=== PATIENT | female | born 1965 | race Hispanic/Latino ===

== ENCOUNTER 2018-01-30 17:40 | Inpatient (IN) | payer OTHER ==
[2018-01-30 17:55] VITALS: BMI 31.1
[2018-01-30] MEDS ORDERED: Sodium Chloride 0.9% 1,000 ML IV STA (19:06)
[2018-01-30 19:38] LABS: BASO # 0.04 K/mm3 (0.0-2.0); BASO % 0.7 % (0.0-3.0); EOS # 0.1 (0.0-0.7); EOS % 1.1 % (1.5-5.0); GRAN # 3.57 (1.4-6.5); HEMOGLOBIN 15.2 g/dL (12.0-16.0); LYMPH # 1.2 (1.2-3.4); LYMPH % 21.8 % (22.0-35.0); MEAN CELL VOLUME 91.9 fl (80.0-105.0); MEAN CORPUSCULAR HEMOGLOBIN 31.4 pg (25.0-35.0); MEAN CORPUSCULAR HGB CONC 34.2 g/dl (31.0-37.0); MEAN PLATELET VOLUME 11.4 fl (7.0-11.0); MONO # 0.6 (0.1-0.6); MONO % 10.4 % (1.0-6.0); RBC 4.84 10^6/uL (3.5-6.1); RED CELL DISTRIBUTION WIDTH 13.7 % (11.5-14.5); WHITE BLOOD COUNT 5.4 10^3/uL (4.5-11.0)
[2018-01-30 19:43] LABS: ALB/GLOB RATIO 1.2 (1.1-1.8); ALBUMIN 3.9 g/dL (3.0-4.8); ALT/SGPT 181 U/L (7-56); AST/SGOT 216 U/L (14-36); BLOOD UREA NITROGEN 5 mg/dL (7-21); GFR NON-AFRICAN AMERICAN > 60; INR 1.03; LIPASE 1822 U/L (23-300); PARTIAL THROMBOPLASTIN TIME 29.2 Seconds (25.1-36.5); PROTHROMBIN TIME 11.8 SECONDS (9.4-12.5)
--- NOTE | 2018-01-30 20:52 | ED PDOC ---
Arrival/HPI - General Chief Complaint: GI Problem Time Seen by Provider: 01/30/18 18:30 Historian: Patient - History of Present Illness Narrative History of Present Illness (Text): 01/30/18 21:37 52 year old female, whose past medical history includes gastric ulcers on omeprazole, presents to the emergency department for constant RUQ pain for 4 days. Patient states pain has been radiating to her back. Patient informs pain is atypical with her normal gastritis pain. Patient denies any recent travel or sick contact. Patient also denies any fever, chills, diarrhea, headache, dizziness, CP, shortness of breath, back pain or any any other complaint. Reports no prior abdominal surgery. PMD [facility] Time/Duration: < week (3-4 days) Activities at Onset: Light Past Medical History - Provider Review Nursing Documentation Reviewed: Yes - Infectious Disease Hx of Infectious Diseases: None - Tetanus Immunization Tetanus Immunization: Unknown - Past Medical History Past Medical History: No Previous - Pulmonary Hx Chronic Obstructive Pulmonary Disease (COPD): Yes - Musculoskeletal/Rheumatological Hx Falls: No - Gastrointestinal Hx Gastrointestinal Ulcer: Yes - Psychiatric Hx Depression: No Hx Emotional Abuse: No Hx Physical Abuse: No Hx Substance Use: No - Past Surgical History Past Surgical History: No Previous - Anesthesia Hx Anesthesia: No - Suicidal Assessment Feels Threatened In Home Enviroment: No Family/Social History - Physician Review Nursing Documentation Reviewed: Yes Family/Social History: No Known Family HX Smoking Status: Heavy Smoker > 10 Cigarettes Daily Hx Alcohol Use: No Hx Substance Use: No Hx Substance Use Treatment: No Allergies/Home Meds Allergies/Adverse Reactions: Allergies No Known Allergies Allergy (Verified 01/30/18 17:55) Review of Systems - Physician Review All systems were reviewed & negative as marked: Yes - Review of Systems Constitutional: absent: Fevers, Night Sweats Gastrointestinal: Abdominal Pain. absent: Diarrhea Neurological: absent: Headache, Dizziness Physical Exam Vital Signs Reviewed: Yes Vital Signs Temp Pulse Resp BP Pulse Ox 01/30/18 17:58 98.0 F 103 H 18 124/82 97 Temperature: Afebrile Blood Pressure: Normal Pulse: Tachycardic Respiratory Rate: Normal Appearance: Positive for: Well-Appearing, Non-Toxic, Comfortable Pain Distress: None Mental Status: Positive for: Alert and Oriented X 3 - Systems Exam Head: Present: Atraumatic, Normocephalic Pupils: Present: PERRL Extroacular Muscles: Present: EOMI Conjunctiva: Present: Normal Mouth: Present: Moist Mucous Membranes Neck: Present: Normal Range of Motion Respiratory/Chest: Present: Clear to Auscultation, Good Air Exchange. No: Respiratory Distress, Accessory Muscle Use Cardiovascular: Present: Regular Rate and Rhythm, Normal S1, S2. No: Murmurs Abdomen: Present: Tenderness (RUQ ). No: Distention, Peritoneal Signs, Other (No garcias's sign) Back: Present: Normal Inspection Upper Extremity: Present: Normal Inspection. No: Cyanosis, Edema Lower Extremity: Present: Normal Inspection. No: Edema Neurological: Present: GCS=15, CN II-XII Intact, Speech Normal Skin: Present: Warm, Dry, Normal Color. No: Rashes Psychiatric: Present: Alert, Oriented x 3, Normal Insight, Normal Concentration Medical Decision Making ED Course and Treatment: 01/30/18 20:30 Impression: 52 year old female presents with RUQ pain Plan: -- EKG -- Labs -- GI Consult -- Chest X-ray -- Dextrose 5%/ lactated ringer -- Morphine -- Zofran -- Protonix -- Blood and Urine cultures -- Urinalysis -- US Abdomen Complete -- Reassess and disposition Prior Visits: Notes and results from previous visits were reviewed. Progress Notes: Labs reviewed : wbc 5.4, t bili 4.1, ast 216, alt 181, alk phos 159, lipase 1822 01/30/18 20:50 US Abdomen Complete CLINICAL HISTORY: RUQ pain. TECHNIQUE: Realtime sonographic images were obtained in multiple projections. COMMENTS: The liver shows increased echogenicity without evidence of mass or defect measuring 13.57 cm. Intrahepatic biliary ductal dilation is seen. The common b ile duct is dilated measuring 11.37 mm. The gallbladder shows gallstone at the bladder neck with sludge. The gallbladder wall is not thickened measuring 1.5 mm and there is no pericholecystic fluid. There is no abdominal ascites. The visualized portions of abdominal aorta and inferior vena cava present no abnormalities. The visualized portions of the pancreas are unremarkable. The spleen is of uniform echo texture and does not appear enlarged measuring 10.02 x 5.12 x 9.37 cm. The right kidney measures 10.26 x 4.02 x 5.05 cm and the left kidney measures 10.37 x 4.51 x 4.16 cm. Both kidneys are free of hydronephrosis. IMPRESSION: 1. Gallstone at the bladder neck with sludge. 2. Fatty liver. 3. No hepatic cysts are identified. On reevaluation, patient remains awake alert and oriented 3 in no acute distress. She states that the pain is controlled at this time. Abdomen remains soft with mild epigastric and RUQ tenderness, no guarding. Diagnostic results discussed with the patient in great detail. Dx of gallstone pancreatitis d/w the patient. Notified of need for admission, rationale for admission was explained to the patient and she is in agreement with plan for further inpatient treatment. 01/30/18 20:55 Case d/w Dr Rosario who agrees with admission plan under the hospitalist and recommends only IVF. 01/30/18 20:55 Case discussed with nurses medical assistants phlebotomists and Dr Hardwick, who agree with plan for under hospitalist. - Lab Interpretations Lab Results: 01/30/18 19:28 01/30/18 19:28 Lab Results 01/30/18 19:28: Sodium 136, Potassium 3.7, Chloride 104, Carbon Dioxide 25, Anion Gap 11, BUN 5 L, Creatinine 0.5 L, Est GFR ( Amer) > 60, Est GFR (Non-Af Amer) > 60, Random Glucose 110, Calcium 9.0, Magnesium 1.9, Total Bilirubin 4.1 H, AST 216 H, ALT 181 H, Alkaline Phosphatase 159 H, Total Protein 7.2, Albumin 3.9, Globulin 3.2, Albumin/Globulin Ratio 1.2, Lipase 1822 H 01/30/18 19:28: PT 11.8, INR 1.03, APTT 29.2 01/30/18 19:28: WBC 5.4, RBC 4.84, Hgb 15.2, Hct 44.5, MCV 91.9, MCH 31.4, MCHC 34.2, RDW 13.7, Plt Count 184, MPV 11.4 H, Gran % 66.0, Lymph % (Auto) 21.8 L, [place] % (Auto) 10.4 H, Eos % (Auto) 1.1 L, Baso % (Auto) 0.7, Gran # 3.57, Lymph # (Auto) 1.2, [place] # (Auto) 0.6, Eos # (Auto) 0.1, Baso # (Auto) 0.04 - RAD Interpretation Radiology Orders: 01/30/18 19:06 CHEST PORTABLE [RAD] Stat ABDOMEN COMPLETE [US] Stat - Medication Orders Current Medication Orders: Discontinued Medications Sodium Chloride (Sodium Chloride 0.9%) 1,000 mls @ 1,000 mls/hr IV .Q1H STA Stop: 01/30/18 20:05 Last Admin: 01/30/18 19:59 Dose: 1,000 mls/hr eMAR Start Stop Document 01/30/18 19:59 SS (Rec: 01/30/18 19:59 SS [email or web address]) Intravenous Solution Start Date 01/30/18 Start Time 19:59 End Date 01/30/18 End time 20:59 Total Infusion Time 60 Ondansetron HCl (Zofran Inj) 4 mg IVP STAT STA Stop: 01/30/18 19:07 Last Admin: 01/30/18 19:59 Dose: 4 mg IVP Administration Document 01/30/18 19:59 SS (Rec: 01/30/18 19:59 SS [email or web address]) Charges for Administration # of IVP Administrations 1 Pantoprazole Sodium (Protonix Inj) 40 mg IVP STAT STA Stop: 01/30/18 19:07 Last Admin: 01/30/18 19:59 Dose: 40 mg IVP Administration Document 01/30/18 19:59 SS (Rec: 01/30/18 19:59 SS [email or web address]) Charges for Administration # of IVP Administrations 1 - PA / [employer] RESURFACER / Resident Statement MD/DO has reviewed & agrees with the documentation as recorded. - Scribe Statement The provider has reviewed the documentation as recorded by the Jordanibomaira Hamm Provider Scribe Attestation: All medical record entries made by the Melecio were at my direction and personally dictated by me. I have reviewed the chart and agree that the record accurately reflects my personal performance of the history, physical exam, medical decision making, and the department course for this patient. I have also personally directed, reviewed, and agree with the discharge instructions and disposition. Disposition/Present on Arrival - Present on Arrival Any Indicators Present on Arrival: No History of DVT/PE: No History of Uncontrolled Diabetes: No Urinary Catheter: No History of Decub. Ulcer: No History Surgical Site Infection Following: None - Disposition Have Diagnosis and Disposition been Completed?: Yes Diagnosis: Gallstone pancreatitis Disposition: HOSPITALIZED Disposition Time: 21:00 Patient Plan: Admission Condition: STABLE
[2018-01-30] MEDS: Morphine 2 mg/ml ISec IVP PRN (21:52)
[2018-01-30] MEDS: Dextrose 5%/Lactated Ringer's 1,000 ML IV SCH (21:53)
[2018-01-30] MEDS ORDERED: Iohexol 350 MG/100 ML VIAL ONE (22:11)
[2018-01-30 22:23] LABS: BARBITURATES, UR NEGATIVE (NEGATIVE); BENZODIAZEPINES, UR NEGATIVE (NEGATIVE); OPIATES, UR NEGATIVE (NEGATIVE); PHENCYCLIDINE, UR NEGATIVE (NEGATIVE); URINE BILIRUBIN SMALL (NEGATIVE); URINE BLOOD NEGATIVE (NEGATIVE); URINE GLUCOSE (UA) NEGATIVE (NEGATIVE); URINE LEUKOCYTE ESTERASE NEGATIVE Leu/uL (NEGATIVE); URINE PROTEIN NEGATIVE mg/dL (<30 mg/dL); URINE UROBILINOGEN 0.2 E.U./dL (<1 E.U./dL)
[2018-01-30 22:24] LABS: URINE APPEARANCE CLEAR (CLEAR); URINE COLOR YELLOW (YELLOW)
[2018-01-30] MEDS ORDERED: Piperacillin/Tazobact 3.375 gm 100 ML IVPB STA (22:34)
--- NOTE | 2018-01-30 22:45 | CP.PCM.CON ---
<Danny Kumari - Last Filed: 01/31/18 00:22> History of Present Illness - History of Present Illness History of Present Illness: 52F with PMHx of peptic ulcer disease and diverticulosis presented to [facility] with complaints of abdominal pain. Patient reports she first noted abdominal pain around Thanksgiving. However, patient reports the abdominal pain severity has worsened over the past couple of days. Initially she attributed the pain to her history of PUD and had increased the dosage of omeprazole after consulting her GI doctor but had no relief, at which point she decided to come to ED. At time of examination patient reported having epigastric pain with radiation towards right upper quadrant and back. Patient also states having multiple bouts of emesis. Denies hematemesis. She denies fever/chills, chest pain, SOB, cough, lightheadedness, constipation, diarrhea, dysuria. PMHx: as stated above PSurgHx: denies Allergies: NKDA Soc Hx: Reports 1ppd for past 37 years, Denies EtOH consumption, denies illicit drug use Review of Systems - Review of Systems Review of Systems: 10 pt ROS negative except as stated in HPI Past Patient History - Infectious Disease Hx of Infectious Diseases: None - Tetanus Immunizations Tetanus Immunization: Unknown - Past Social History Smoking Status: Heavy Smoker > 10 Cigarettes Daily - PULMONARY Hx Chronic Obstructive Pulmonary Disease (COPD): Yes - MUSCULOSKELETAL/RHEUMATOLOGICAL Hx Falls: No - PSYCHIATRIC Hx Depression: No Hx Emotional Abuse: No Hx Physical Abuse: No Hx Substance Use: No - SURGICAL HISTORY Hx Surgeries: No - ANESTHESIA Hx Anesthesia: No Meds Allergies/Adverse Reactions: Allergies Allergy/AdvReac Type Severity Reaction Status Date / Time No Known Allergies Allergy Verified 01/30/18 17:55 - Medications Medications: Current Medications Heparin Sodium (Porcine) (Heparin) 5,000 units SC Q8H [facility]; Protocol Dextrose/Lactated Ringer's (Dextrose 5%/Lactated Ringer's) 1,000 mls @ 150 mls/hr IV .Q6H40M [facility] Last Admin: 01/30/18 21:53 Dose: 150 mls/hr Piperacillin Sod/Tazobactam Sod (Zosyn 3.375 In Ns 100ml) 100 mls @ 200 mls/hr IVPB STAT STA; Protocol Stop: 01/30/18 23:03 Piperacillin Sod/Tazobactam Sod (Zosyn 3.375 In Ns 100ml) 100 mls @ 25 mls/hr IVPB Q12 [facility]; Protocol Stop: 02/02/18 01:59 Morphine Sulfate (Morphine) 2 mg IVP Q4H PRN PRN Reason: Pain, moderate (4-7) Last Admin: 01/30/18 21:52 Dose: 2 mg Ondansetron HCl (Zofran Inj) 4 mg IVP Q6H PRN PRN Reason: Nausea/Vomiting Pantoprazole Sodium (Protonix Inj) 40 mg IVP DAILY [facility] Physical Exam - Constitutional Appears: Non-toxic, No Acute Distress - Head Exam Head Exam: NORMAL INSPECTION, NORMOCEPHALIC - Eye Exam Eye Exam: Normal appearance - ENT Exam ENT Exam: Mucous Membranes Moist - Respiratory Exam Respiratory Exam: NORMAL BREATHING PATTERN - Cardiovascular Exam Cardiovascular Exam: +S1, +S2 - GI/Abdominal Exam GI & Abdominal Exam: Distended, Soft, Tenderness. absent: Firm, Guarding, Rebound, Rigid Additional comments: slight epigastric and RUQ tenderness mild distension - Neurological Exam Neurological exam: Alert, Oriented x3 - Psychiatric Exam Psychiatric exam: Normal Mood - Skin Skin Exam: Dry, Intact, Warm Results - Vital Signs Recent Vital Signs: Last Vital Signs Temp 98.0 F 01/30/18 17:58 Pulse 103 H 01/30/18 17:58 Resp 18 01/30/18 17:58 BP 124/82 01/30/18 17:58 Pulse Ox 97 01/30/18 17:58 - Labs Result Diagrams: 01/30/18 19:28 01/30/18 19:28 Labs: Laboratory Results - last 24 hr 01/30/18 01/30/18 01/30/18 19:28 19:28 19:28 WBC 5.4 RBC 4.84 Hgb 15.2 Hct 44.5 MCV 91.9 MCH 31.4 MCHC 34.2 RDW 13.7 Plt Count 184 MPV 11.4 H Gran % 66.0 Lymph % (Auto) 21.8 L [place] % (Auto) 10.4 H Eos % (Auto) 1.1 L Baso % (Auto) 0.7 Gran # 3.57 Lymph # (Auto) 1.2 [place] # (Auto) 0.6 Eos # (Auto) 0.1 Baso # (Auto) 0.04 PT 11.8 INR 1.03 APTT 29.2 Sodium 136 Potassium 3.7 Chloride 104 Carbon Dioxide 25 Anion Gap 11 BUN 5 L Creatinine 0.5 L Est GFR ( Amer) > 60 Est GFR (Non-Af Amer) > 60 Random Glucose 110 Calcium 9.0 Magnesium 1.9 Total Bilirubin 4.1 H AST 216 H ALT 181 H Alkaline Phosphatase 159 H Total Protein 7.2 Albumin 3.9 Globulin 3.2 Albumin/Globulin Ratio 1.2 Lipase 1822 H Urine Color Urine Appearance Urine pH Ur Specific [place] Urine Protein Urine Glucose (UA) Urine Ketones Urine Blood Urine Nitrate Urine Bilirubin Urine Urobilinogen Ur Leukocyte Esterase Urine Opiates Screen Urine Methadone Screen Ur Barbiturates Screen Ur Phencyclidine Scrn Ur Amphetamines Screen U Benzodiazepines Scrn U Oth Cocaine Metabols U Cannabinoids Screen 01/30/18 01/30/18 21:58 21:58 WBC RBC Hgb Hct MCV MCH MCHC RDW Plt Count MPV Gran % Lymph % (Auto) [place] % (Auto) Eos % (Auto) Baso % (Auto) Gran # Lymph # (Auto) [place] # (Auto) Eos # (Auto) Baso # (Auto) PT INR APTT Sodium Potassium Chloride Carbon Dioxide Anion Gap BUN Creatinine Est GFR ( Amer) Est GFR (Non-Af Amer) Random Glucose Calcium Magnesium Total Bilirubin AST ALT Alkaline Phosphatase Total Protein Albumin Globulin Albumin/Globulin Ratio Lipase Urine Color Yellow Urine Appearance Clear Urine pH 7.0 Ur Specific [place] <= 1.005 Urine Protein Negative Urine Glucose (UA) Negative Urine Ketones 15 H Urine Blood Negative Urine Nitrate Negative Urine Bilirubin Small H Urine Urobilinogen 0.2 Ur Leukocyte Esterase Negative Urine Opiates Screen Negative Urine Methadone Screen Negative Ur Barbiturates Screen Negative Ur Phencyclidine Scrn Negative Ur Amphetamines Screen Negative U Benzodiazepines Scrn Negative U Oth Cocaine Metabols Negative U Cannabinoids Screen Negative Assessment & Plan - Assessment and Plan (Free Text) Assessment: 52F with gallstone pancreatitis, possible choledocholithiasis Abd U/S measured CBD at ~11.37mm Plan: -NPO -IVF -ABx -Analgesics prn -Anti-emetic prn -GI ppx -F/u MRCP results -Recommend GI consult, ERCP, recs appreciated -Patient will need cholecystectomy D/w Dr. Esperanza Barr PGY3 <Kvng Mata - Last Filed: 02/05/18 22:56> Results - Vital Signs Recent Vital Signs: Last Vital Signs Temp 98.1 F 02/04/18 06:00 Pulse 84 02/04/18 06:00 Resp 18 02/04/18 06:00 BP 161/99 H 02/04/18 06:00 Pulse Ox 95 02/04/18 06:00 - Labs Result Diagrams: 02/04/18 06:00 02/04/18 06:00 Attending/Attestation - Attestation I have personally seen and examined this patient.: Yes I have fully participated in the care of the patient.: Yes I have reviewed all pertinent clinical information: Yes Notes (Text): Pt was seen and examined at bedside Agree with above note and assessment Pt with RUQ pain and nausea Abdomen : Soft, ND, Tender in RUQ Labs and Radiology reviewed Ass: Cholelithiasis with CBD stone and abnormal LFTs Plan : MRCP GI consult for ERCP IV antibiotics NPO, IVF Plan d.w pt in detail Risk and benefit explained in detail. .
--- NOTE | 2018-01-30 22:46 | CP.PCM.HP ---
<Elisabeth Ma - Last Filed: 01/31/18 05:23> History of Present Illness - History of Present Illness History of Present Illness: Elisabeth Ma, PGY-1 Medicine H&P Note for Dr. Hardwick: CC: Abd pain x 2 weeks Pt is a 52 yo F with pmhx of PUD, and diverticulosis who presents for RUQ abd pain which started a day before . She states that for the last couple of days the episodes have become continuous and the pain has become more intense. She states that the pain is worsened with food and that her last meal was on tuesday about 5 days ago, which she had vomited up. She states She describes the pain as RUQ pain with radiation to her back and to the epigastric region of her abdomen. She also reports that the pain is rated as a 7/10 in intensity and describes it as a cramping pain. She states that she had 3 episodes of vomiting which was non-bloody non-billious. She is currenly reporting continued abdominal pain, and nausea but is denying fevers, chills, SOB, cough, chest pain, palpitations, leg swelling, constipation, diarrhea, frequency or dysuria. Pmhx: PUD, Diverticulosis Pshx: Denies Meds: Omperazole 40 BID All: NKDA Social: 1 ppd x 37 years, denies etoh or illicit drug use Fam: Dad: DM, Mom: Lung ca, Brother: DM PMD: Dr. [facility] [place] Present on Admission - Present on Admission Any Indicators Present on Admission: No Review of Systems - Review of Systems Review of Systems: 12 point ROS reviewed and negative except noted in HPI above Past Patient History - Infectious Disease Hx of Infectious Diseases: None - Tetanus Immunizations Tetanus Immunization: Unknown - Past Social History Smoking Status: Heavy Smoker > 10 Cigarettes Daily - PULMONARY Hx Chronic Obstructive Pulmonary Disease (COPD): Yes - MUSCULOSKELETAL/RHEUMATOLOGICAL Hx Falls: No - PSYCHIATRIC Hx Depression: No Hx Emotional Abuse: No Hx Physical Abuse: No Hx Substance Use: No - SURGICAL HISTORY Hx Surgeries: No - ANESTHESIA Hx Anesthesia: No Meds Allergies/Adverse Reactions: Allergies Allergy/AdvReac Type Severity Reaction Status Date / Time No Known Allergies Allergy Verified 01/30/18 17:55 Physical Exam - Constitutional Appears: Non-toxic, No Acute Distress, Other (uncomfortable) - Head Exam Head Exam: ATRAUMATIC, NORMAL INSPECTION, NORMOCEPHALIC - Eye Exam Eye Exam: EOMI, Normal appearance, PERRL - Respiratory Exam Respiratory Exam: Clear to Auscultation Bilateral, NORMAL BREATHING PATTERN. absent: Accessory Muscle Use, Decreased Breath Sounds, Rales, Rhonchi, Wheezes, Respiratory Distress, Stridor - Cardiovascular Exam Cardiovascular Exam: RRR, +S1, +S2. absent: Gallop, Rubs - GI/Abdominal Exam GI & Abdominal Exam: Normal Bowel Sounds, Soft, Tenderness (present in the RUQ and epigastric regions upon palpation). absent: Distended, Firm, Guarding, Rebound - Extremities Exam Extremities exam: Positive for: normal capillary refill, normal inspection, pedal pulses present - Back Exam Back exam: NORMAL INSPECTION. absent: CVA tenderness (L), CVA tenderness (R) - Neurological Exam Neurological exam: Alert, Oriented x3 - Psychiatric Exam Psychiatric exam: Normal Affect, Normal Mood - Skin Skin Exam: Dry, Intact, Normal Color, Warm Results - Vital Signs Recent Vital Signs: Last Vital Signs Temp 98.0 F 01/30/18 17:58 Pulse 103 H 01/30/18 17:58 Resp 18 01/30/18 17:58 BP 124/82 01/30/18 17:58 Pulse Ox 97 01/30/18 17:58 - Labs Result Diagrams: 01/30/18 19:28 01/30/18 19:28 Labs: Laboratory Results - last 24 hr 01/30/18 01/30/18 01/30/18 19:28 19:28 19:28 WBC 5.4 RBC 4.84 Hgb 15.2 Hct 44.5 MCV 91.9 MCH 31.4 MCHC 34.2 RDW 13.7 Plt Count 184 MPV 11.4 H Gran % 66.0 Lymph % (Auto) 21.8 L [place] % (Auto) 10.4 H Eos % (Auto) 1.1 L Baso % (Auto) 0.7 Gran # 3.57 Lymph # (Auto) 1.2 [place] # (Auto) 0.6 Eos # (Auto) 0.1 Baso # (Auto) 0.04 PT 11.8 INR 1.03 APTT 29.2 Sodium 136 Potassium 3.7 Chloride 104 Carbon Dioxide 25 Anion Gap 11 BUN 5 L Creatinine 0.5 L Est GFR ( Amer) > 60 Est GFR (Non-Af Amer) > 60 Random Glucose 110 Calcium 9.0 Magnesium 1.9 Total Bilirubin 4.1 H AST 216 H ALT 181 H Alkaline Phosphatase 159 H Total Protein 7.2 Albumin 3.9 Globulin 3.2 Albumin/Globulin Ratio 1.2 Lipase 1822 H Urine Color Urine Appearance Urine pH Ur Specific [place] Urine Protein Urine Glucose (UA) Urine Ketones Urine Blood Urine Nitrate Urine Bilirubin Urine Urobilinogen Ur Leukocyte Esterase Urine Opiates Screen Urine Methadone Screen Ur Barbiturates Screen Ur Phencyclidine Scrn Ur Amphetamines Screen U Benzodiazepines Scrn U Oth Cocaine Metabols U Cannabinoids Screen 01/30/18 01/30/18 21:58 21:58 WBC RBC Hgb Hct MCV MCH MCHC RDW Plt Count MPV Gran % Lymph % (Auto) [place] % (Auto) Eos % (Auto) Baso % (Auto) Gran # Lymph # (Auto) [place] # (Auto) Eos # (Auto) Baso # (Auto) PT INR APTT Sodium Potassium Chloride Carbon Dioxide Anion Gap BUN Creatinine Est GFR ( Amer) Est GFR (Non-Af Amer) Random Glucose Calcium Magnesium Total Bilirubin AST ALT Alkaline Phosphatase Total Protein Albumin Globulin Albumin/Globulin Ratio Lipase Urine Color Yellow Urine Appearance Clear Urine pH 7.0 Ur Specific [place] <= 1.005 Urine Protein Negative Urine Glucose (UA) Negative Urine Ketones 15 H Urine Blood Negative Urine Nitrate Negative Urine Bilirubin Small H Urine Urobilinogen 0.2 Ur Leukocyte Esterase Negative Urine Opiates Screen Negative Urine Methadone Screen Negative Ur Barbiturates Screen Negative Ur Phencyclidine Scrn Negative Ur Amphetamines Screen Negative U Benzodiazepines Scrn Negative U Oth Cocaine Metabols Negative U Cannabinoids Screen Negative Assessment & Plan - Assessment and Plan (Free Text) Assessment: Pt is a 52 yo F with pmhx of PUD, and diverticulosis who presents for RUQ abd pain which started a day before . U/S abd done in ED showed gallstone at the neck of the gallbladder and labs showed increased lipase and increased LFTs. Plan: 1. Pancreatitis likely 2/2 gallstone: - Lipase elevated to be 1822 - NPO - IVF - LR @ 150/hr - Protonix - Zofran prn - amylase - morphine 2q6 - GI consulted - Abraham - Surgery - Esperanza - EtoH 2. Transaminitis likely 2/2 gallstone obstruction: - Direct randy - Acute hep panel - MRCP - GI and surgery are on board 3. Hx of PUD: - Protonix 40 IV 4. PPX: GI: Protonix DVT: SCDs Case seen and discussed with Dr. Ronen Ma, PGY-1 <Ray Hardwick - Last Filed: 02/03/18 02:05> Results - Vital Signs Recent Vital Signs: Last Vital Signs Temp 98.1 F 02/02/18 14:00 Pulse 62 02/02/18 14:00 Resp 18 02/02/18 14:00 BP 150/92 H 02/02/18 14:00 Pulse Ox 100 02/02/18 14:00 - Labs Result Diagrams: 02/02/18 06:30 02/02/18 06:30 Labs: Laboratory Results - last 24 hr 02/02/18 02/02/18 02/02/18 06:30 06:30 06:30 WBC 4.4 L D RBC 4.24 Hgb 12.9 Hct 39.8 MCV 93.9 MCH 30.4 MCHC 32.4 RDW 14.2 Plt Count 149 MPV 11.3 H Gran % 62.8 Lymph % (Auto) 27.5 [place] % (Auto) 7.7 H Eos % (Auto) 1.8 Baso % (Auto) 0.2 Gran # 2.76 Lymph # (Auto) 1.2 [place] # (Auto) 0.3 Eos # (Auto) 0.1 Baso # (Auto) 0.01 Sodium 136 Potassium 3.9 Chloride 108 H Carbon Dioxide 25 Anion Gap 7 L BUN 4 L Creatinine 0.6 L Est GFR ( Amer) > 60 Est GFR (Non-Af Amer) > 60 Random Glucose 78 Calcium 8.8 Total Bilirubin 1.9 H AST 128 H D ALT 136 H Alkaline Phosphatase 135 H Total Protein 6.2 Albumin 3.2 Globulin 3.0 Albumin/Globulin Ratio 1.1 Amylase 78 Lipase 179 Blood Type AB POSITIVE Blood Type Confirm Antibody Screen Negative BBK History Checked No verified bt 02/02/18 07:45 WBC RBC Hgb Hct MCV MCH MCHC RDW Plt Count MPV Gran % Lymph % (Auto) [place] % (Auto) Eos % (Auto) Baso % (Auto) Gran # Lymph # (Auto) [place] # (Auto) Eos # (Auto) Baso # (Auto) Sodium Potassium Chloride Carbon Dioxide Anion Gap BUN Creatinine Est GFR ( Amer) Est GFR (Non-Af Amer) Random Glucose Calcium Total Bilirubin AST ALT Alkaline Phosphatase Total Protein Albumin Globulin Albumin/Globulin Ratio Amylase Lipase Blood Type Blood Type Confirm AB POSITIVE Antibody Screen BBK History Checked Attending/Attestation - Attestation I have personally seen and examined this patient.: Yes I have fully participated in the care of the patient.: Yes I have reviewed all pertinent clinical information: Yes
[2018-01-30 23:27] LABS: BILIRUBIN,DIRECT 3.4 mg/dL (0.0-0.4)
[2018-01-31] MEDS ORDERED: Morphine 2 mg/ml ISec IVP STA (00:28)
[2018-01-31] MEDS ORDERED: Pneumococcal 23-Valent Vaccine IM ONE (01:11)
[2018-01-31] MEDS ORDERED: Influenza Vaccine 60 mcg/0.5 mL SYR (4YR UP) IM ONE (01:11)
[2018-01-31 06:50] LABS: BASO # 0.03 K/mm3 (0.0-2.0); BASO % 0.8 % (0.0-3.0); EOS # 0.1 (0.0-0.7); GRAN # 1.84 (1.4-6.5); GRAN % 50.3 % (50.0-68.0); HEMOGLOBIN 13.9 g/dL (12.0-16.0); LYMPH # 1.3 (1.2-3.4); LYMPH % 36.1 % (22.0-35.0); MEAN CELL VOLUME 93.3 fl (80.0-105.0); MEAN CORPUSCULAR HEMOGLOBIN 30.9 pg (25.0-35.0); MEAN CORPUSCULAR HGB CONC 33.1 g/dl (31.0-37.0); MEAN PLATELET VOLUME 11.1 fl (7.0-11.0); MONO # 0.4 (0.1-0.6); MONO % 9.8 % (1.0-6.0); RBC 4.5 10^6/uL (3.5-6.1); WHITE BLOOD COUNT 3.7 10^3/uL (4.5-11.0)
[2018-01-31 07:30] LABS: ALB/GLOB RATIO 1.1 (1.1-1.8); ALBUMIN 3.4 g/dL (3.0-4.8); ALT/SGPT 161 U/L (7-56); AST/SGOT 189 U/L (14-36); BLOOD UREA NITROGEN 3 mg/dL (7-21); GFR NON-AFRICAN AMERICAN > 60
--- NOTE | 2018-01-31 07:48 | CP.PCM.PN ---
<Alesia Ramon - Last Filed: 01/31/18 11:39> Subjective - Date & Time of Evaluation Date of Evaluation: 01/31/18 Time of Evaluation: 07:45 - Subjective Subjective: Surgery progress note for Dr. Mata's service: Patient was seen and examined this morning. She states that her abdominal pain has improved. She is just mildly tender in the epigastric region. Denies nausea/vomiting. Denies fevers/chills. Denies diarrhea, constipation, dysuria. Objective - Vital Signs/Intake and Output Vital Signs (last 24 hours): Temp Pulse Resp BP Pulse Ox 97.9 F 65 20 124/83 96 01/31/18 01:17 01/31/18 01:17 01/31/18 01:17 01/31/18 01:17 01/31/18 01:17 - Medications Medications: Current Medications Heparin Sodium (Porcine) (Heparin) 5,000 units SC Q8H LIBAN; Protocol Last Admin: 01/31/18 00:09 Dose: 5,000 units Dextrose/Lactated Ringer's (Dextrose 5%/Lactated Ringer's) 1,000 mls @ 150 mls/hr IV .Q6H40M LIBAN Last Admin: 01/30/18 21:53 Dose: 150 mls/hr Piperacillin Sod/Tazobactam Sod (Zosyn 3.375 In Ns 100ml) 100 mls @ 25 mls/hr IVPB Q12 LIBAN; Protocol Stop: 01/31/18 13:59 Morphine Sulfate (Morphine) 2 mg IVP Q4H PRN PRN Reason: Pain, moderate (4-7) Last Admin: 01/30/18 21:52 Dose: 2 mg Ondansetron HCl (Zofran Inj) 4 mg IVP Q6H PRN PRN Reason: Nausea/Vomiting Pantoprazole Sodium (Protonix Inj) 40 mg IVP DAILY LIBAN - Labs Labs: 01/31/18 06:20 01/31/18 06:20 PT 11.8 SECONDS (9.4-12.5) 01/30/18 19:28 INR 1.03 01/30/18 19:28 APTT 29.2 Seconds (25.1-36.5) 01/30/18 19:28 - Constitutional Appears: Non-toxic, No Acute Distress - Head Exam Head Exam: ATRAUMATIC, NORMAL INSPECTION, NORMOCEPHALIC - Eye Exam Eye Exam: EOMI, Normal appearance - ENT Exam ENT Exam: Mucous Membranes Moist - Neck Exam Neck Exam: Normal Inspection - Respiratory Exam Respiratory Exam: NORMAL BREATHING PATTERN. absent: Accessory Muscle Use, Chest Wall Tenderness, Respiratory Distress - Cardiovascular Exam Cardiovascular Exam: REGULAR RHYTHM. absent: Tachycardia - GI/Abdominal Exam GI & Abdominal Exam: Soft, Tenderness (mild- epigastric). absent: Distended, Firm, Guarding, Rebound Additional comments: negative Rose's sign - Extremities Exam Extremities Exam: Normal Inspection. absent: Pedal Edema - Neurological Exam Neurological Exam: Alert, Awake, CN II-XII Intact, Oriented x3 - Psychiatric Exam Psychiatric exam: Normal Affect, Normal Mood - Skin Skin Exam: Dry, Intact, Normal Color, Warm Assessment and Plan - Assessment and Plan (Free Text) Assessment: 52F with gallstone pancreatitis, possible choledocholithiasis Plan: - Afebrile, no leukocytosis - Elevated Tbili, direct bili, LFTs, lipase/amylase - NPO - IVF - Pain meds PRN - CT A/P: extensive biliary tree dilatation due to multiple choledocholithiasis obstructing mid-distal CBD, mod intra and extrahepatic biliary dilatation, cholelithiasis in GB lumen - MRCP pending - Possible ERCP pending MRCP results - F/u GI recs - Likely cholecystectomy Case was discussed with attending, Dr. Mata. PGY-1 Alesia Ramon D.O. <Kvng Mata B - Last Filed: 02/05/18 22:58> Objective - Vital Signs/Intake and Output Vital Signs (last 24 hours): Temp Pulse Resp BP Pulse Ox 98.1 F 84 18 161/99 H 95 02/04/18 06:00 02/04/18 06:00 02/04/18 06:00 02/04/18 06:00 02/04/18 06:00 - Labs Labs: 02/04/18 06:00 02/04/18 06:00 PT 11.9 SECONDS (9.4-12.5) 01/31/18 09:10 INR 1.03 01/31/18 09:10 APTT 29.2 Seconds (25.1-36.5) 01/30/18 19:28 Attending/Attestation - Attestation I have personally seen and examined this patient.: Yes I have fully participated in the care of the patient.: Yes I have reviewed all pertinent clinical information, including history, physical exam and plan: Yes Notes (Text): Pt was seen and examined at bedside Agree with above note and assessment Pt with CBD stone and cholelithiasis ERCP tomorrow as per GI IV antibiotics NPO, IVF Plan d.w pt in detail
[2018-01-31] MEDS ORDERED: Potassium Phosphate 15 MMOLE in Dextrose 5% In Water 250 ML IVPB ONE (08:17)
--- NOTE | 2018-01-31 08:33 | RAD ---
Date of service: 01/30/2018 HISTORY: RUQ pain COMPARISON: No prior. FINDINGS: LUNGS: No active pulmonary disease. PLEURA: No significant pleural effusion identified, no pneumothorax apparent. CARDIOVASCULAR: No aortic atherosclerotic calcification present. Normal cardiac size. No pulmonary vascular congestion. OSSEOUS STRUCTURES: No significant abnormalities. VISUALIZED UPPER ABDOMEN: Normal. OTHER FINDINGS: None. IMPRESSION: No acute cardiopulmonary disease appreciated.
[2018-01-31 08:39] LABS: HDL CHOLESTEROL 36 mg/dL (29-60); LIPASE 1121 U/L (23-300)
[2018-01-31 08:50] LABS: LDL CHOLESTEROL 92 mg/dL (0-129)
[2018-01-31 09:30] LABS: INR 1.03; PROTHROMBIN TIME 11.9 SECONDS (9.4-12.5)
[2018-01-31] MEDS ORDERED: Piperacillin/Tazobact 3.375 gm 100 ML IVPB SCH (10:00)
[2018-01-31] MEDS: Dextrose 5%/Lactated Ringer's 1,000 ML IV SCH (10:31)
--- NOTE | 2018-01-31 10:34 | US ---
Date of service: 01/30/2018 HISTORY: RUQ pain COMPARISON: Really TECHNIQUE: Sonographic evaluation of the abdomen. FINDINGS: LIVER: Measures 13.6 cm. Diffusely increased echogenicity of the liver parenchyma. Consistent with fatty infiltration. Smooth contour. No mass. There is intrahepatic biliary ductal dilatation. GALLBLADDER: Cholelithiasis. No mural thickening. No pericholecystic fluid. Positive sonographic Rose sign. Gallstones are identified in the gallbladder neck though it is not clear whether they are mobile from the examination performed. COMMON BILE DUCT: Measures 11 mm. No stones. No dilatation. PANCREAS: Unremarkable as visualized. No mass. No ductal dilatation. RIGHT KIDNEY: Measures 10.3cm. Normal echogenicity. No calculus, mass, or hydronephrosis. LEFT KIDNEY: Measures 10.4cm. Normal echogenicity. No calculus, mass, or hydronephrosis. SPLEEN: 10.0 AORTA: No aneurysmal dilatation. IVC: Unremarkable. OTHER FINDINGS: None. IMPRESSION: Cholelithiasis with positive sonographic Rose sign. No mural thickening or pericholecystic fluid. Findings are equivocal for cholecystitis. Consider further evaluation with radionuclide hepatobiliary scan. There is evidence of biliary obstruction with dilatation of the common bile duct and intrahepatic bile ducts. Consider further evaluation with MRCP in consideration of choledocholithiasis. The preliminary findings for this examination were reported by [facility] at 10:57 p.m. on 01/30/2018. There is concurrence of this report with the preliminary findings.
--- NOTE | 2018-01-31 11:06 | CT ---
Date of service: 01/30/2018 PROCEDURE: CT Abdomen and Pelvis with contrast HISTORY: pancreatitis COMPARISON: At ultrasound examination 01/30/[address] exam. TECHNIQUE: Following the intravenous administration of iodinated contrast material, a CT examination of the abdomen and pelvis performed from the domes of the diaphragms to the symphysis pubis with reformatted datasets provided in axial, sagittal and coronal planes. Oral contrast was not administered as per referring physician request. Coronal and sagittal reformats were generated. Contrast dose: Omnipaque 350, 98 cc Radiation dose: Total exam DLP = 825.99 mGy-cm. This CT exam was performed using one or more of the following dose reduction techniques: Automated exposure control, adjustment of the mA and/or kV according to patient size, and/or use of iterative reconstruction technique. FINDINGS: LOWER THORAX: Unremarkable. LIVER: Moderate intrahepatic biliary dilatation is identified including common hepatic duct measuring 1.2 cm. There is a simple cyst identified at the medial left lobe measuring 1.7 cm greatest dimension and 13 Hounsfield units though this could represent a small choledochocele. Right hepatic parenchyma is nonfocal. GALLBLADDER AND BILE DUCTS: Gallbladder is mildly distended with numerous calculi in the lumen. Extensive choledocholithiasis is seen in the distal common bile duct which extends backward to the mid CBD in a pattern that suggests multiple adjacent stones along 50 percent of the course of the CBD similar to steinstrasse seen in the ureters with multiple renal stones but not in this patient. This is the etiology of the patient's biliary obstruction. PANCREAS: Unremarkable. No gross lesion or significant ductal dilatation. SPLEEN: Unremarkable. ADRENALS: Unremarkable. No mass. KIDNEYS AND URETERS: Unremarkable. No hydronephrosis. No solid mass. VASCULATURE: Unremarkable. No aortic aneurysm. No aortic atherosclerotic calcification or mural plaque present. BOWEL: Limited sigmoid diverticulosis without diverticulitis. No obstruction. No gross mural thickening. APPENDIX: Normal appendix. PERITONEUM: Unremarkable. No free fluid. No free air. LYMPH NODES: Unremarkable. No enlarged lymph nodes. BLADDER: Unremarkable. REPRODUCTIVE: Bilateral adnexal cysts are identified measuring 2.7 cm at the right and 1.8 cm and the left with trace fluid identified in the endometrial cavity. Nabothian cysts in the cervix as well. BONES: No acute fracture. OTHER FINDINGS: None. IMPRESSION: 1. Extensive biliary tree dilatation is identified due to multiple choledocholithiasis obstructing the mid distal common bile duct as discussed above. Moderate intra and extrahepatic biliary dilatation results. Please see discussion above. Cholelithiasis also remains in the gallbladder lumen. Consider follow-up ERCP. 2. Small cyst versus choledochocele left lobe liver. 3. Limited sigmoid diverticulosis without diverticulitis. 4. Small bilateral adnexal cysts. Concordant preliminary report from [facility], 01/31/2018 12:28 a.m..
--- NOTE | 2018-01-31 11:25 | CARD ---
APPROVED REPORT Date of service: 01/30/2018 EKG Measurement Heart [id number] <Conclusion> Normal sinus rhythm with sinus arrhythmia
--- NOTE | 2018-01-31 12:02 | CP.PCM.CON ---
<Jack Betancourt - Last Filed: 01/31/18 12:03> History of Present Illness - History of Present Illness History of Present Illness: PGY6 GI Fellow Consult Note Patient is a 52yo female with PMHx significant for diveritculitis, PUD who presented to the ED with severe abdominal pain. Pain has been dull, achey, RUQ/epigastric discomfort which has been present since just before the . Thinking this was indigestion, the patient more or less ignored her symptoms. Over the last week, symptoms intensified, particularly after eating and as such she has had limited intake for the last 4-5 days with frequent episodes of nausea/vomiting. As symptoms became severe, she presented to the ED for evaluation. Imaging studies have revealed cholelithiasis/choledocolithiasis. Presently, she continues to have discomfort but is eager to eat/drink. Denies fever, chills, weight loss, change in bowel habits. 12 system ROS performed and negative except where stated PMHx: See HPI PSHx: Discussed with patient and she denies surgical history FHx: Mother - lung cancer; Father and Brother - DM Social: 1ppd smoker for 35+ years; Denies EtOH or illicit drug use Endo: No prior examinations Past Patient History - Infectious Disease Hx of Infectious Diseases: None - Tetanus Immunizations Tetanus Immunization: Unknown - Past Social History Smoking Status: Heavy Smoker > 10 Cigarettes Daily - PULMONARY Hx Chronic Obstructive Pulmonary Disease (COPD): Yes - MUSCULOSKELETAL/RHEUMATOLOGICAL Hx Falls: No - GASTROINTESTINAL Other/Comment: SBO - PSYCHIATRIC Hx Depression: No Hx Emotional Abuse: No Hx Physical Abuse: No Hx Substance Use: No - SURGICAL HISTORY Hx Surgeries: No - ANESTHESIA Hx Anesthesia: No Meds Allergies/Adverse Reactions: Allergies Allergy/AdvReac Type Severity Reaction Status Date / Time No Known Allergies Allergy Verified 01/30/18 17:55 - Medications Medications: Current Medications Heparin Sodium (Porcine) (Heparin) 5,000 units SC Q8H [facility]; Protocol Last Admin: 01/31/18 08:10 Dose: 5,000 units Dextrose/Lactated Ringer's (Dextrose 5%/Lactated Ringer's) 1,000 mls @ 150 mls/hr IV .Q6H40M LIBAN Last Admin: 01/31/18 10:31 Dose: 150 mls/hr Potassium Phosphate 15 mmole/ (Dextrose) 255 mls @ 42.5 mls/hr IVPB ONCE ONE Stop: 01/31/18 14:16 Last Admin: 01/31/18 10:31 Dose: 42.5 mls/hr Morphine Sulfate (Morphine) 2 mg IVP Q4H PRN PRN Reason: Pain, moderate (4-7) Last Admin: 01/30/18 21:52 Dose: 2 mg Nicotine (Nicoderm Cq) 1 patch TD DAILY [facility] Last Admin: 01/31/18 10:41 Dose: 1 patch Ondansetron HCl (Zofran Inj) 4 mg IVP Q6H PRN PRN Reason: Nausea/Vomiting Pantoprazole Sodium (Protonix Inj) 40 mg IVP DAILY [facility] Last Admin: 01/31/18 10:41 Dose: 40 mg Physical Exam - Constitutional Appears: Non-toxic, No Acute Distress - Eye Exam Eye Exam: EOMI, PERRL - ENT Exam ENT Exam: Mucous Membranes Moist - Respiratory Exam Respiratory Exam: Clear to Auscultation Bilateral. absent: Rales, Rhonchi, Wheezes - Cardiovascular Exam Cardiovascular Exam: RRR, +S1, +S2 - GI/Abdominal Exam GI & Abdominal Exam: Normal Bowel Sounds, Soft, Tenderness (RUQ, epigastric). absent: Distended, Firm, Guarding, Organomegaly, Rigid Additional comments: +Rose sign - Extremities Exam Extremities exam: Positive for: normal inspection. Negative for: pedal edema - Neurological Exam Neurological exam: Alert, Oriented x3 - Psychiatric Exam Psychiatric exam: Normal Affect, Normal Mood - Skin Skin Exam: Dry, Warm Results - Vital Signs Recent Vital Signs: Last Vital Signs Temp 98.2 F 01/31/18 07:00 Pulse 68 01/31/18 07:00 Resp 18 01/31/18 07:00 BP 121/75 01/31/18 07:00 Pulse Ox 99 01/31/18 07:00 - Labs Result Diagrams: 01/31/18 06:20 01/31/18 06:20 Labs: Laboratory Results - last 24 hr 01/30/18 01/30/18 01/30/18 19:28 19:28 19:28 WBC 5.4 RBC 4.84 Hgb 15.2 Hct 44.5 MCV 91.9 MCH 31.4 MCHC 34.2 RDW 13.7 Plt Count 184 MPV 11.4 H Gran % 66.0 Lymph % (Auto) 21.8 L Dickinson % (Auto) 10.4 H Eos % (Auto) 1.1 L Baso % (Auto) 0.7 Gran # 3.57 Lymph # (Auto) 1.2 Dickinson # (Auto) 0.6 Eos # (Auto) 0.1 Baso # (Auto) 0.04 PT 11.8 INR 1.03 APTT 29.2 Sodium 136 Potassium 3.7 Chloride 104 Carbon Dioxide 25 Anion Gap 11 BUN 5 L Creatinine 0.5 L Est GFR ( Amer) > 60 Est GFR (Non-Af Amer) > 60 Random Glucose 110 Calcium 9.0 Phosphorus Magnesium 1.9 Total Bilirubin 4.1 H Direct Bilirubin AST 216 H ALT 181 H Alkaline Phosphatase 159 H Total Protein 7.2 Albumin 3.9 Globulin 3.2 Albumin/Globulin Ratio 1.2 Triglycerides Cholesterol LDL Cholesterol Direct HDL Cholesterol Amylase Lipase 1822 H Urine Color Urine Appearance Urine pH Ur Specific [place] Urine Protein Urine Glucose (UA) Urine Ketones Urine Blood Urine Nitrate Urine Bilirubin Urine Urobilinogen Ur Leukocyte Esterase Urine Opiates Screen Urine Methadone Screen Ur Barbiturates Screen Ur Phencyclidine Scrn Ur Amphetamines Screen U Benzodiazepines Scrn U Oth Cocaine Metabols U Cannabinoids Screen Alcohol, Quantitative 01/30/18 01/30/18 01/30/18 19:28 19:28 21:58 WBC RBC Hgb Hct MCV MCH MCHC RDW Plt Count MPV Gran % Lymph % (Auto) Dickinson % (Auto) Eos % (Auto) Baso % (Auto) Gran # Lymph # (Auto) Dickinson # (Auto) Eos # (Auto) Baso # (Auto) PT INR APTT Sodium Potassium Chloride Carbon Dioxide Anion Gap BUN Creatinine Est GFR ( Amer) Est GFR (Non-Af Amer) Random Glucose Calcium Phosphorus 2.2 L Magnesium Total Bilirubin Direct Bilirubin 3.4 H AST ALT Alkaline Phosphatase Total Protein Albumin Globulin Albumin/Globulin Ratio Triglycerides Cholesterol LDL Cholesterol Direct HDL Cholesterol Amylase 256 H Lipase Urine Color Yellow Urine Appearance Clear Urine pH 7.0 Ur Specific [place] <= 1.005 Urine Protein Negative Urine Glucose (UA) Negative Urine Ketones 15 H Urine Blood Negative Urine Nitrate Negative Urine Bilirubin Small H Urine Urobilinogen 0.2 Ur Leukocyte Esterase Negative Urine Opiates Screen Urine Methadone Screen Ur Barbiturates Screen Ur Phencyclidine Scrn Ur Amphetamines Screen U Benzodiazepines Scrn U Oth Cocaine Metabols U Cannabinoids Screen Alcohol, Quantitative < 10 01/30/18 01/31/18 01/31/18 21:58 06:20 06:20 WBC 3.7 L D RBC 4.50 Hgb 13.9 Hct 42.0 MCV 93.3 MCH 30.9 MCHC 33.1 RDW 14.0 Plt Count 176 MPV 11.1 H Gran % 50.3 Lymph % (Auto) 36.1 H Dickinson % (Auto) 9.8 H Eos % (Auto) 3.0 Baso % (Auto) 0.8 Gran # 1.84 Lymph # (Auto) 1.3 Dickinson # (Auto) 0.4 Eos # (Auto) 0.1 Baso # (Auto) 0.03 PT INR APTT Sodium 137 Potassium 3.9 Chloride 106 Carbon Dioxide 29 Anion Gap 6 L BUN 3 L Creatinine 0.7 Est GFR ( Amer) > 60 Est GFR (Non-Af Amer) > 60 Random Glucose 117 H Calcium 9.0 Phosphorus Magnesium Total Bilirubin 3.5 H Direct Bilirubin AST 189 H ALT 161 H Alkaline Phosphatase 146 H Total Protein 6.5 Albumin 3.4 Globulin 3.0 Albumin/Globulin Ratio 1.1 Triglycerides Cholesterol LDL Cholesterol Direct HDL Cholesterol Amylase Lipase Urine Color Urine Appearance Urine pH Ur Specific [place] Urine Protein Urine Glucose (UA) Urine Ketones Urine Blood Urine Nitrate Urine Bilirubin Urine Urobilinogen Ur Leukocyte Esterase Urine Opiates Screen Negative Urine Methadone Screen Negative Ur Barbiturates Screen Negative Ur Phencyclidine Scrn Negative Ur Amphetamines Screen Negative U Benzodiazepines Scrn Negative U Oth Cocaine Metabols Negative U Cannabinoids Screen Negative Alcohol, Quantitative 01/31/18 01/31/18 07:39 09:10 WBC RBC Hgb Hct MCV MCH MCHC RDW Plt Count MPV Gran % Lymph % (Auto) Dickinson % (Auto) Eos % (Auto) Baso % (Auto) Gran # Lymph # (Auto) Dickinson # (Auto) Eos # (Auto) Baso # (Auto) PT 11.9 INR 1.03 APTT Sodium Potassium Chloride Carbon Dioxide Anion Gap BUN Creatinine Est GFR ( Amer) Est GFR (Non-Af Amer) Random Glucose Calcium Phosphorus Magnesium Total Bilirubin Direct Bilirubin AST ALT Alkaline Phosphatase Total Protein Albumin Globulin Albumin/Globulin Ratio Triglycerides 112 Cholesterol 149 LDL Cholesterol Direct 92 HDL Cholesterol 36 Amylase Lipase 1121 H Urine Color Urine Appearance Urine pH Ur Specific [place] Urine Protein Urine Glucose (UA) Urine Ketones Urine Blood Urine Nitrate Urine Bilirubin Urine Urobilinogen Ur Leukocyte Esterase Urine Opiates Screen Urine Methadone Screen Ur Barbiturates Screen Ur Phencyclidine Scrn Ur Amphetamines Screen U Benzodiazepines Scrn U Oth Cocaine Metabols U Cannabinoids Screen Alcohol, Quantitative Assessment & Plan - Assessment and Plan (Free Text) Assessment: Patient is a 52yo female with PMHx significant for diveritculitis, PUD who presented to the ED with severe abdominal pain -Biliary colic -Cholelithiasis -Choledocolithiasis -Nicotine dependence Plan: -Recommend MRI abdomen with MRCP with/without contrast to evaluate biliary tree -Plan for EGD/ERCP tomorrow -No evidence for acute cholecystitis/cholangitis at this time -Liquid diet OK today -NPO past MN -Analgesia and antiemetics per primary service -Primary service to prescribe nicotine patch - Date & Time Date: 01/31/18 Time: 09:10 <Michelle Rosario V - Last Filed: 01/31/18 16:11> Meds - Medications Medications: Current Medications Heparin Sodium (Porcine) (Heparin) 5,000 units SC Q8H [facility]; Protocol Last Admin: 01/31/18 13:55 Dose: Not Given Dextrose/Lactated Ringer's (Dextrose 5%/Lactated Ringer's) 1,000 mls @ 150 mls/hr IV .Q6H40M [facility] Last Admin: 01/31/18 10:31 Dose: 150 mls/hr Morphine Sulfate (Morphine) 2 mg IVP Q4H PRN PRN Reason: Pain, moderate (4-7) Last Admin: 01/30/18 21:52 Dose: 2 mg Nicotine (Nicoderm Cq) 1 patch TD DAILY [facility] Last Admin: 01/31/18 10:41 Dose: 1 patch Ondansetron HCl (Zofran Inj) 4 mg IVP Q6H PRN PRN Reason: Nausea/Vomiting Pantoprazole Sodium (Protonix Inj) 40 mg IVP DAILY [facility] Last Admin: 01/31/18 10:41 Dose: 40 mg Results - Vital Signs Recent Vital Signs: Last Vital Signs Temp 98.2 F 01/31/18 07:00 Pulse 68 01/31/18 07:00 Resp 18 01/31/18 07:00 BP 121/75 01/31/18 07:00 Pulse Ox 99 01/31/18 07:00 - Labs Result Diagrams: 01/31/18 06:20 01/31/18 06:20 Labs: Laboratory Results - last 24 hr 01/30/18 01/30/18 01/30/18 19:28 19:28 19:28 WBC 5.4 RBC 4.84 Hgb 15.2 Hct 44.5 MCV 91.9 MCH 31.4 MCHC 34.2 RDW 13.7 Plt Count 184 MPV 11.4 H Gran % 66.0 Lymph % (Auto) 21.8 L Dickinson % (Auto) 10.4 H Eos % (Auto) 1.1 L Baso % (Auto) 0.7 Gran # 3.57 Lymph # (Auto) 1.2 Dickinson # (Auto) 0.6 Eos # (Auto) 0.1 Baso # (Auto) 0.04 PT 11.8 INR 1.03 APTT 29.2 Sodium 136 Potassium 3.7 Chloride 104 Carbon Dioxide 25 Anion Gap 11 BUN 5 L Creatinine 0.5 L Est GFR ( Amer) > 60 Est GFR (Non-Af Amer) > 60 Random Glucose 110 Calcium 9.0 Phosphorus Magnesium 1.9 Total Bilirubin 4.1 H Direct Bilirubin AST 216 H ALT 181 H Alkaline Phosphatase 159 H Total Protein 7.2 Albumin 3.9 Globulin 3.2 Albumin/Globulin Ratio 1.2 Triglycerides Cholesterol LDL Cholesterol Direct HDL Cholesterol Amylase Lipase 1822 H Urine Color Urine Appearance Urine pH Ur Specific [place] Urine Protein Urine Glucose (UA) Urine Ketones Urine Blood Urine Nitrate Urine Bilirubin Urine Urobilinogen Ur Leukocyte Esterase Urine Opiates Screen Urine Methadone Screen Ur Barbiturates Screen Ur Phencyclidine Scrn Ur Amphetamines Screen U Benzodiazepines Scrn U Oth Cocaine Metabols U Cannabinoids Screen Alcohol, Quantitative 01/30/18 01/30/18 01/30/18 19:28 19:28 21:58 WBC RBC Hgb Hct MCV MCH MCHC RDW Plt Count MPV Gran % Lymph % (Auto) [place] % (Auto) Eos % (Auto) Baso % (Auto) Gran # Lymph # (Auto) [place] # (Auto) Eos # (Auto) Baso # (Auto) PT INR APTT Sodium Potassium Chloride Carbon Dioxide Anion Gap BUN Creatinine Est GFR ( Amer) Est GFR (Non-Af Amer) Random Glucose Calcium Phosphorus 2.2 L Magnesium Total Bilirubin Direct Bilirubin 3.4 H AST ALT Alkaline Phosphatase Total Protein Albumin Globulin Albumin/Globulin Ratio Triglycerides Cholesterol LDL Cholesterol Direct HDL Cholesterol Amylase 256 H Lipase Urine Color Yellow Urine Appearance Clear Urine pH 7.0 Ur Specific [place] <= 1.005 Urine Protein Negative Urine Glucose (UA) Negative Urine Ketones 15 H Urine Blood Negative Urine Nitrate Negative Urine Bilirubin Small H Urine Urobilinogen 0.2 Ur Leukocyte Esterase Negative Urine Opiates Screen Urine Methadone Screen Ur Barbiturates Screen Ur Phencyclidine Scrn Ur Amphetamines Screen U Benzodiazepines Scrn U Oth Cocaine Metabols U Cannabinoids Screen Alcohol, Quantitative < 10 01/30/18 01/31/18 01/31/18 21:58 06:20 06:20 WBC 3.7 L D RBC 4.50 Hgb 13.9 Hct 42.0 MCV 93.3 MCH 30.9 MCHC 33.1 RDW 14.0 Plt Count 176 MPV 11.1 H Gran % 50.3 Lymph % (Auto) 36.1 H Dickinson % (Auto) 9.8 H Eos % (Auto) 3.0 Baso % (Auto) 0.8 Gran # 1.84 Lymph # (Auto) 1.3 Dickinson # (Auto) 0.4 Eos # (Auto) 0.1 Baso # (Auto) 0.03 PT INR APTT Sodium 137 Potassium 3.9 Chloride 106 Carbon Dioxide 29 Anion Gap 6 L BUN 3 L Creatinine 0.7 Est GFR ( Amer) > 60 Est GFR (Non-Af Amer) > 60 Random Glucose 117 H Calcium 9.0 Phosphorus Magnesium Total Bilirubin 3.5 H Direct Bilirubin AST 189 H ALT 161 H Alkaline Phosphatase 146 H Total Protein 6.5 Albumin 3.4 Globulin 3.0 Albumin/Globulin Ratio 1.1 Triglycerides Cholesterol LDL Cholesterol Direct HDL Cholesterol Amylase Lipase Urine Color Urine Appearance Urine pH Ur Specific [place] Urine Protein Urine Glucose (UA) Urine Ketones Urine Blood Urine Nitrate Urine Bilirubin Urine Urobilinogen Ur Leukocyte Esterase Urine Opiates Screen Negative Urine Methadone Screen Negative Ur Barbiturates Screen Negative Ur Phencyclidine Scrn Negative Ur Amphetamines Screen Negative U Benzodiazepines Scrn Negative U Oth Cocaine Metabols Negative U Cannabinoids Screen Negative Alcohol, Quantitative 01/31/18 01/31/18 07:39 09:10 WBC RBC Hgb Hct MCV MCH MCHC RDW Plt Count MPV Gran % Lymph % (Auto) [place] % (Auto) Eos % (Auto) Baso % (Auto) Gran # Lymph # (Auto) [place] # (Auto) Eos # (Auto) Baso # (Auto) PT 11.9 INR 1.03 APTT Sodium Potassium Chloride Carbon Dioxide Anion Gap BUN Creatinine Est GFR ( Amer) Est GFR (Non-Af Amer) Random Glucose Calcium Phosphorus Magnesium Total Bilirubin Direct Bilirubin AST ALT Alkaline Phosphatase Total Protein Albumin Globulin Albumin/Globulin Ratio Triglycerides 112 Cholesterol 149 LDL Cholesterol Direct 92 HDL Cholesterol 36 Amylase Lipase 1121 H Urine Color Urine Appearance Urine pH Ur Specific [place] Urine Protein Urine Glucose (UA) Urine Ketones Urine Blood Urine Nitrate Urine Bilirubin Urine Urobilinogen Ur Leukocyte Esterase Urine Opiates Screen Urine Methadone Screen Ur Barbiturates Screen Ur Phencyclidine Scrn Ur Amphetamines Screen U Benzodiazepines Scrn U Oth Cocaine Metabols U Cannabinoids Screen Alcohol, Quantitative Attending/Attestation - Attestation I have personally seen and examined this patient.: Yes I have fully participated in the care of the patient.: Yes I have reviewed all pertinent clinical information: Yes Notes (Text): This is an addendum to GI consult report dictated by the GI Fellow. The patient was seen and examined earlier. Medical records, lab studies, imagings were reviewed. Last 24 hours events reviewed. Agreed with the above treatment plan as outlined in GI Fellow 's notes with the addition of the following This patient is admitted with gallstone pancreatitis. CT Scan was reviewed. Have CBD stones. Sonogram showed dilated CBD. Plan for ERCP tomorrow. Discussed with surgeon Esperanza. 01/31/18 16:09
[2018-01-31 17:09] LABS: HEPATITIS B SURFACE AG Negative (NEGATIVE)
[2018-01-31 17:15] LABS: HEPATITIS A IGM NEGATIVE (NEGATIVE); HEPATITIS B CORE AB NEGATIVE (NEGATIVE)
[2018-01-31 17:26] LABS: HEPATITIS C ANTIBODY NEGATIVE (NEGATIVE)
[2018-01-31] MEDS: Morphine 2 mg/ml ISec IVP PRN (19:59)
[2018-02-01 06:56] LABS: BASO # 0.02 K/mm3 (0.0-2.0); BASO % 0.6 % (0.0-3.0); EOS # 0.1 (0.0-0.7); EOS % 2.8 % (1.5-5.0); GRAN # 1.83 (1.4-6.5); GRAN % 51.5 % (50.0-68.0); HEMOGLOBIN 13.4 g/dL (12.0-16.0); LYMPH # 1.2 (1.2-3.4); LYMPH % 32.7 % (22.0-35.0); MEAN CELL VOLUME 93.6 fl (80.0-105.0); MEAN CORPUSCULAR HEMOGLOBIN 30.6 pg (25.0-35.0); MEAN CORPUSCULAR HGB CONC 32.7 g/dl (31.0-37.0); MEAN PLATELET VOLUME 11.4 fl (7.0-11.0); MONO # 0.4 (0.1-0.6); MONO % 12.4 % (1.0-6.0); RBC 4.38 10^6/uL (3.5-6.1); WHITE BLOOD COUNT 3.6 10^3/uL (4.5-11.0)
[2018-02-01] MEDS ORDERED: Gadodiamide 287 MG/ML VIAL (15ML) IV ONE (07:58)
[2018-02-01 08:01] LABS: ALB/GLOB RATIO 1.1 (1.1-1.8); ALBUMIN 3.5 g/dL (3.0-4.8); ALT/SGPT 152 U/L (7-56); AST/SGOT 169 U/L (14-36); BLOOD UREA NITROGEN 2 mg/dL (7-21); CALCIUM 9.1 mg/dL (8.4-10.5); GFR NON-AFRICAN AMERICAN > 60
--- NOTE | 2018-02-01 11:02 | MRI ---
Date of service: 02/01/2018 PROCEDURE: Magnetic Resonance Cholangiopancreatography with MRI of the abdomen with and without contrast HISTORY: Rule out choledocholithiasis COMPARISON: None available. TECHNIQUE: Multiplanar, multisequence MR images of the abdomen were obtained, including heavily T2 weighted MRCP images of the biliary system. Rotating maximum intensity projection images of the biliary system were generated. 15 cc of Omniscan were injected. FINDINGS: MRCP: The common bile duct is mildly dilated measuring 9 mm. Multiple filling defects are seen in the distal common duct consistent with stones or sludge. The findings are best visualized on image 20 series 8 as well as image 17 series 11. LIVER: Unremarkable. GALLBLADDER: Multiple gallstones SPLEEN: Unremarkable. PANCREAS: Unremarkable. ADRENALS: Unremarkable. KIDNEYS: Unremarkable. AORTA: No aneurysm. ASCITES: None. OTHER FINDINGS: No enhancing lesions. IMPRESSION: Gallstones. Stones or sludge in the distal common duct. Mild dilatation of the common duct measuring 9 mm.
--- NOTE | 2018-02-01 11:24 | CP.PCM.PN ---
<Dara Neely - Last Filed: 02/01/18 12:23> Subjective - Date & Time of Evaluation Date of Evaluation: 02/01/18 Time of Evaluation: 09:05 - Subjective Subjective: Internal medicine progress note for Dr. Ace De Santiago Patient seen and examined this am at bedside. NAEO per nursing. Pt reports mild cramping pain this am following MRCP but otherwise denies GERMAN, F/C, N/V, CP, SOB and extremity pain/ weakness. She is eager to have her procedure completed today so that she can drink water and indicates that she would like to have surg bello as soon as possible afterwards. 12 point ROS otherwise negative Objective - Vital Signs/Intake and Output Vital Signs (last 24 hours): Temp Pulse Resp BP Pulse Ox 98.3 F 77 20 119/86 97 02/01/18 06:00 02/01/18 06:00 02/01/18 06:00 02/01/18 06:00 02/01/18 06:00 - Medications Medications: Current Medications Heparin Sodium (Porcine) (Heparin) 5,000 units SC Q8H [facility]; Protocol Last Admin: 02/01/18 07:04 Dose: 5,000 units Potassium Chloride 20 meq/ (Sodium Chloride) 1,010 mls @ 100 mls/hr IV .Q10H6M [facility] Morphine Sulfate (Morphine) 2 mg IVP Q4H PRN PRN Reason: Pain, moderate (4-7) Last Admin: 01/31/18 19:59 Dose: 2 mg Nicotine (Nicoderm Cq) 1 patch TD DAILY [facility] Last Admin: 02/01/18 09:46 Dose: 1 patch Ondansetron HCl (Zofran Inj) 4 mg IVP Q6H PRN PRN Reason: Nausea/Vomiting Last Admin: 01/31/18 19:59 Dose: 4 mg Pantoprazole Sodium (Protonix Inj) 40 mg IVP DAILY [facility] Last Admin: 02/01/18 09:46 Dose: 40 mg - Labs Labs: 02/01/18 06:30 02/01/18 06:30 PT 11.9 SECONDS (9.4-12.5) 01/31/18 09:10 INR 1.03 01/31/18 09:10 APTT 29.2 Seconds (25.1-36.5) 01/30/18 19:28 - Constitutional Appears: Well, Non-toxic, No Acute Distress - Head Exam Head Exam: ATRAUMATIC, NORMOCEPHALIC - Eye Exam Eye Exam: EOMI - ENT Exam ENT Exam: Mucous Membranes Moist - Respiratory Exam Respiratory Exam: NORMAL BREATHING PATTERN - Cardiovascular Exam Cardiovascular Exam: REGULAR RHYTHM - GI/Abdominal Exam GI & Abdominal Exam: Soft, Tenderness (RUQ and epigastric mild). absent: Distended, Guarding - Extremities Exam Extremities Exam: absent: Calf Tenderness, Pedal Edema, Tenderness - Neurological Exam Neurological Exam: Alert, Awake, Oriented x3 - Psychiatric Exam Psychiatric exam: Normal Affect, Normal Mood - Skin Skin Exam: Dry, Intact, Normal Color, Warm Assessment and Plan - Assessment and Plan (Free Text) Assessment: 52 yr old female with Gallstone Pancreatitis and CBD stones/ sludge Plan: 1. Pancreatitis likely 2/2 gallstone: - will go for ERCP/EUS today with GI - NPO - IVF - LR @ 100/hr - Protonix - Zofran prn - morphine 2q6 - GI consulted - [facility] - Surgery - [facility] 2. Transaminitis likely 2/2 gallstone obstruction: - MRCP complete showing sludge/stones and dilated CBD - to ERCP today for removal with GI - Surgery planning for Cholecystectomy tomorrow 3. Hx of PUD: - Protonix 40 IV daily 4. Hx of Smoking - Nicoderm patch given - no further symptomatic complaints 5. PPX: GI: Protonix DVT: SCDs Patient seen examined and discussed with Dr. Ginger Neely, PGY 1 <Ginger De Santiago R - Last Filed: 02/02/18 17:33> Objective - Vital Signs/Intake and Output Vital Signs (last 24 hours): Temp Pulse Resp BP Pulse Ox 98.1 F 62 18 150/92 H 100 02/02/18 14:00 02/02/18 14:00 02/02/18 14:00 02/02/18 14:00 02/02/18 14:00 - Medications Medications: Current Medications Heparin Sodium (Porcine) (Heparin) 5,000 units SC Q8H [facility]; Protocol Last Admin: 02/01/18 07:04 Dose: 5,000 units Potassium Chloride 20 meq/ (Sodium Chloride) 1,010 mls @ 100 mls/hr IV .Q10H6M [facility] Last Admin: 02/02/18 05:27 Dose: 100 mls/hr Morphine Sulfate (Morphine) 2 mg IVP Q4H PRN PRN Reason: Pain, moderate (4-7) Last Admin: 02/02/18 13:09 Dose: 2 mg Nicotine (Nicoderm Cq) 1 patch TD DAILY [facility] Last Admin: 02/02/18 10:49 Dose: 1 patch Ondansetron HCl (Zofran Inj) 4 mg IVP Q6H PRN PRN Reason: Nausea/Vomiting Last Admin: 02/01/18 21:53 Dose: 4 mg Ondansetron HCl (Zofran Inj) 4 mg IVP ONCE PRN PRN Reason: Nausea/Vomiting Pantoprazole Sodium (Protonix Inj) 40 mg IVP DAILY [facility] Last Admin: 02/02/18 10:51 Dose: 40 mg - Labs Labs: 02/02/18 06:30 02/02/18 06:30 PT 11.9 SECONDS (9.4-12.5) 01/31/18 09:10 INR 1.03 01/31/18 09:10 APTT 29.2 Seconds (25.1-36.5) 01/30/18 19:28 Attending/Attestation - Attestation I have personally seen and examined this patient.: Yes I have fully participated in the care of the patient.: Yes I have reviewed all pertinent clinical information, including history, physical exam and plan: Yes Notes (Text): Patient seen and examined by me with resident at 10:30 AM on 02/01/18. Case including HPI, physical exam, and assessment and plan discussed with resident. Agree with above with following additions/corrections. Patient is a 52-year-old female past medical history significant for peptic ulce r disease and diverticulosis that presented to the emergency room with intermittent right upper quadrant abdominal pain which started 01/04/2018 and has progressively gotten worse. Patient states he is feeling a little better today. Still with some right upper quadrant and epigastric pain. Patient states she has a little bit of nausea but no vomiting. Patient states she feels thirsty. States she has not had a bowel movement because she has not had any food in several days. She denies any chest pain or shortness of breath. No headaches or dizziness. No fevers or chills. No dysuria. Physical exam: General: Awake and alert lying in bed in no acute distress HEENT: Normocephalic, atraumatic. Extraocular muscles intact, pupils equal and reactive, no scleral icterus. Oropharynx is pink moist. Neck is supple. Cardiovascular: Regular rhythm. Normal S1 and S2. No murmurs, rubs, or gallops appreciated Pulmonary: Normal respiratory effort. No rhonchi, rales, or wheezing appreciated Gastrointestinal: Soft, nondistended. Positive epigastric and right upper quadrant tenderness. Positive bowel sounds all 4 quadrants. No guarding. Musculoskeletal: Moves all extremities. No calf tenderness. No edema appreciated. Central nervous system: AAO x 3, CN2-12 grossly intact Dermatologic: Skin warm and dry. Assessment and plan: Patient is a 52-year-old female past medical history significant for peptic ulcer disease and diverticulosis that presented to the emergency room with intermittent right upper quadrant abdominal pain which started 01/04/2018 and has progressively gotten worse. 1. Gallstone pancreatitis. Choledocholithiasis. Cholecystitis. Abdominal ultrasound per radiologist showed cholelithiasis with positive sonographic Rose's sign, no mural thickening or pericholecystic fluid, findings are equivocal for cholecystitis, there is evidence of biliary obstruction with dilatation of the common bile duct and intrahepatic bile ducts. CT abdomen and pelvis per radiologist showed extensive biliary tree dilatation identified due to multiple choledocholithiasis obstructing the mid distal common bile duct, moderate intra-and extrahepatic biliary dilatation, cholelithiasis also remains in the gallbladder lumen; small cyst versus choledochocele left love liver; limited sigmoid diverticulosis without diverticulitis; small bilateral adnexal cyst. MRCP per radiologist showed gallstones, stones or sludge in the distal common duct, mild dilatation of the common duct measuring 9 mm. Patient for ERCP today. GI following, recommendations appreciated. Surgery following, recommendations appreciated. Patient will need cholecystectomy. Continue IV fluids. Continue NPO. Continue with pain management. 2. Transaminitis. Secondary to #1. Slightly down trended. GI following, recommendations appreciated. Hepatitis panel negative. Continue to monitor 3. Hypokalemia. Will replace potassium. Follow up repeat labs in AM. 4. History of PUD. Continue Protonix 5. Tobacco abuse. Counseled on cessation. Continue with nicoderm patch. 6. GI/DVT prophylaxis. Protonix/heparin 7. Patient is a full code Case was discussed in detail with the patient regarding current diagnosis and treatment plan. All questions answered.
--- NOTE | 2018-02-01 11:36 | CP.PCM.PN ---
<Wei Macias - Last Filed: 02/01/18 11:33> Subjective - Date & Time of Evaluation Date of Evaluation: 02/01/18 Time of Evaluation: 11:33 - Subjective Subjective: Wei Macias, PGY1 Surgery Progress Note for Dr. Mata Patient was seen and examined at bedside this morning. No adverse overnight events. She has mild abdominal pain. Denies nausea, vomiting, fever, chills. Patient went for MRCP this morning. Objective - Vital Signs/Intake and Output Vital Signs (last 24 hours): Temp Pulse Resp BP Pulse Ox 98.3 F 77 20 119/86 97 02/01/18 06:00 02/01/18 06:00 02/01/18 06:00 02/01/18 06:00 02/01/18 06:00 - Medications Medications: Current Medications Heparin Sodium (Porcine) (Heparin) 5,000 units SC Q8H [facility]; Protocol Last Admin: 02/01/18 07:04 Dose: 5,000 units Potassium Chloride 20 meq/ (Sodium Chloride) 1,010 mls @ 100 mls/hr IV .Q10H6M [facility] Morphine Sulfate (Morphine) 2 mg IVP Q4H PRN PRN Reason: Pain, moderate (4-7) Last Admin: 01/31/18 19:59 Dose: 2 mg Nicotine (Nicoderm Cq) 1 patch TD DAILY [facility] Last Admin: 02/01/18 09:46 Dose: 1 patch Ondansetron HCl (Zofran Inj) 4 mg IVP Q6H PRN PRN Reason: Nausea/Vomiting Last Admin: 01/31/18 19:59 Dose: 4 mg Pantoprazole Sodium (Protonix Inj) 40 mg IVP DAILY [facility] Last Admin: 02/01/18 09:46 Dose: 40 mg - Labs Labs: 02/01/18 06:30 02/01/18 06:30 PT 11.9 SECONDS (9.4-12.5) 01/31/18 09:10 INR 1.03 01/31/18 09:10 APTT 29.2 Seconds (25.1-36.5) 01/30/18 19:28 - Head Exam Head Exam: ATRAUMATIC, NORMAL INSPECTION, NORMOCEPHALIC - Eye Exam Eye Exam: EOMI, Normal appearance - ENT Exam ENT Exam: Mucous Membranes Moist, Normal Exam - Respiratory Exam Respiratory Exam: Clear to Ausculation Bilateral. absent: Rales, Rhonchi, Wheez es - Cardiovascular Exam Cardiovascular Exam: RRR, +S1, +S2 - GI/Abdominal Exam GI & Abdominal Exam: Soft, Tenderness (Mild RUQ tenderness to palpation ), Normal Bowel Sounds. absent: Firm, Guarding, Rebound - Extremities Exam Extremities Exam: Full ROM, Normal Capillary Refill, Normal Inspection. absent: Joint Swelling, Pedal Edema - Skin Skin Exam: Dry, Intact, Normal Color, Warm Assessment and Plan - Assessment and Plan (Free Text) Assessment: Patient is a 52 y/o F admitted for Gallstone Pancreatitis and CBD stone. Plan: - MRCP from today shows evidence of gallstones with dilation of the CBD at 9mm - f/u for ERCP today - c/w primary care team and GI recommendations - Plan for lap erasmo tomorrow - c/w pain control - c/w IVF - NPO at midnight Dispo: Follow up results for ERCP today. Plan for lap cholecystectomy tomorrow. Case was discussed and reviewed with Attending Physician, Dr. Mata. <Kvng Mata - Last Filed: 02/05/18 22:59> Objective - Vital Signs/Intake and Output Vital Signs (last 24 hours): Temp Pulse Resp BP Pulse Ox 98.1 F 84 18 161/99 H 95 02/04/18 06:00 02/04/18 06:00 02/04/18 06:00 02/04/18 06:00 02/04/18 06:00 - Labs Labs: 02/04/18 06:00 02/04/18 06:00 PT 11.9 SECONDS (9.4-12.5) 01/31/18 09:10 INR 1.03 01/31/18 09:10 APTT 29.2 Seconds (25.1-36.5) 01/30/18 19:28 Attending/Attestation - Attestation I have personally seen and examined this patient.: Yes I have fully participated in the care of the patient.: Yes I have reviewed all pertinent clinical information, including history, physical exam and plan: Yes Notes (Text): Pt was seen and examined at bedside Agree with above note and assessment Pt is improving clinically ERCP today c.w IV antibiotics Plan d.w pt in detail
[2018-02-01] MEDS ORDERED: Iohexol 240 (50 ml) ONE (14:53)
[2018-02-01] MEDS ORDERED: Indomethacin 50 MG Suppository PR ONE (14:55)
[2018-02-01] MEDS ORDERED: Propofol 10 mg/ml Inj (20 ML) ONE (16:19)
[2018-02-01] MEDS ORDERED: Midazolam 2 MG/2 ML VIAL ONE (16:19)
[2018-02-01] MEDS ORDERED: Rocuronium 10 mg/ml (5 ml) ONE (16:25)
[2018-02-01] MEDS ORDERED: HYDROmorphone 0.5 mg/0.5 ml ISec IVP PRN (16:37)
[2018-02-01] MEDS ORDERED: Cefepime 1gm in NS 100ml 1 GM/100 ML BAG IVPB STA (16:44)
[2018-02-01] MEDS ORDERED: Lactated Ringer's 1,000 ML IV SCH (16:45)
[2018-02-01] MEDS ORDERED: Cefepime (Maxipime) 1 g Inj IVPB ONE (17:01)
[2018-02-01] MEDS ORDERED: Neostigmine Methylsulfate 3mg/3ml Syringe IV ONE (17:45)
[2018-02-01] MEDS ORDERED: Glycopyrrolate 0.2 mg/ml (2ml vial) ONE (17:46)
[2018-02-01] MEDS: Morphine 2 mg/ml ISec IVP PRN (21:43)
[2018-02-02 06:54] LABS: BASO # 0.01 K/mm3 (0.0-2.0); BASO % 0.2 % (0.0-3.0); EOS # 0.1 (0.0-0.7); EOS % 1.8 % (1.5-5.0); GRAN # 2.76 (1.4-6.5); GRAN % 62.8 % (50.0-68.0); HEMOGLOBIN 12.9 g/dL (12.0-16.0); LYMPH # 1.2 (1.2-3.4); LYMPH % 27.5 % (22.0-35.0); MEAN CELL VOLUME 93.9 fl (80.0-105.0); MEAN CORPUSCULAR HEMOGLOBIN 30.4 pg (25.0-35.0); MEAN CORPUSCULAR HGB CONC 32.4 g/dl (31.0-37.0); MEAN PLATELET VOLUME 11.3 fl (7.0-11.0); MONO # 0.3 (0.1-0.6); MONO % 7.7 % (1.0-6.0); RBC 4.24 10^6/uL (3.5-6.1); RED CELL DISTRIBUTION WIDTH 14.2 % (11.5-14.5); WHITE BLOOD COUNT 4.4 10^3/uL (4.5-11.0)
[2018-02-02 07:49] LABS: ALB/GLOB RATIO 1.1 (1.1-1.8); ALBUMIN 3.2 g/dL (3.0-4.8); ALT/SGPT 136 U/L (7-56); AMYLASE 78 U/L (35-125); AST/SGOT 128 U/L (14-36); BLOOD UREA NITROGEN 4 mg/dL (7-21); CALCIUM 8.8 mg/dL (8.4-10.5); GFR NON-AFRICAN AMERICAN > 60; LIPASE 179 U/L (23-300)
--- NOTE | 2018-02-02 08:41 | CP.PCM.PN ---
<Wei Macias - Last Filed: 02/03/18 07:40> Subjective - Date & Time of Evaluation Date of Evaluation: 02/02/18 Time of Evaluation: 08:42 - Subjective Subjective: Wei Macias PGY1 Surgery Progress Note for Dr. Mata Patient was seen and examined at bedside this morning. No adverse overnight events. She has mild abdominal pain. Denies nausea, vomiting, fever, chills. Patient had ERCP done yesterday for stone extraction and biliary stent placement. Objective - Vital Signs/Intake and Output Vital Signs (last 24 hours): Temp Pulse Resp BP Pulse Ox 97.5 F L 81 18 139/88 96 02/01/18 22:00 02/01/18 22:00 02/01/18 22:00 02/01/18 22:00 02/01/18 22:00 - Medications Medications: Current Medications Heparin Sodium (Porcine) (Heparin) 5,000 units SC Q8H [facility]; Protocol Last Admin: 02/01/18 07:04 Dose: 5,000 units Potassium Chloride 20 meq/ (Sodium Chloride) 1,010 mls @ 100 mls/hr IV .Q10H6M [facility] Last Admin: 02/02/18 05:27 Dose: 100 mls/hr Morphine Sulfate (Morphine) 2 mg IVP Q4H PRN PRN Reason: Pain, moderate (4-7) Last Admin: 02/01/18 21:43 Dose: 2 mg Nicotine (Nicoderm Cq) 1 patch TD DAILY [facility] Last Admin: 02/01/18 09:46 Dose: 1 patch Ondansetron HCl (Zofran Inj) 4 mg IVP Q6H PRN PRN Reason: Nausea/Vomiting Last Admin: 02/01/18 21:53 Dose: 4 mg Ondansetron HCl (Zofran Inj) 4 mg IVP ONCE PRN PRN Reason: Nausea/Vomiting Pantoprazole Sodium (Protonix Inj) 40 mg IVP DAILY [facility] Last Admin: 02/01/18 09:46 Dose: 40 mg - Labs Labs: 02/02/18 06:30 02/02/18 06:30 PT 11.9 SECONDS (9.4-12.5) 01/31/18 09:10 INR 1.03 01/31/18 09:10 APTT 29.2 Seconds (25.1-36.5) 01/30/18 19:28 - Constitutional Appears: No Acute Distress - Head Exam Head Exam: ATRAUMATIC, NORMAL INSPECTION, NORMOCEPHALIC - ENT Exam ENT Exam: Mucous Membranes Moist, Normal Exam - Respiratory Exam Respiratory Exam: Clear to Ausculation Bilateral. absent: Rales, Rhonchi, Wheezes - Cardiovascular Exam Cardiovascular Exam: RRR, +S1, +S2 - GI/Abdominal Exam GI & Abdominal Exam: Soft, Tenderness (Mild RUQ tenderness to palpation ), Normal Bowel Sounds - Extremities Exam Extremities Exam: Full ROM, Normal Capillary Refill, Normal Inspection. absent: Joint Swelling, Pedal Edema - Neurological Exam Neurological Exam: Alert, Awake, Oriented x3 - Skin Skin Exam: Dry, Intact, Normal Color, Warm Assessment and Plan - Assessment and Plan (Free Text) Assessment: Patient is a 52 y/o F admitted for Gallstone Pancreatitis and CBD stone. Plan: - Plan for lap erasmo tomorrow, 02/03 - ERCP (02/01): stone extraction with biliary stent placement - c/w primary care team and GI recommendations - c/w pain control - c/w IVF - NPO at midnight Case was discussed and reviewed with Attending Physician, Dr. Mata. <Kvng Mata - Last Filed: 02/05/18 23:00> Objective - Vital Signs/Intake and Output Vital Signs (last 24 hours): Temp Pulse Resp BP Pulse Ox 98.1 F 84 18 161/99 H 95 02/04/18 06:00 02/04/18 06:00 02/04/18 06:00 02/04/18 06:00 02/04/18 06:00 - Labs Labs: 02/04/18 06:00 02/04/18 06:00 PT 11.9 SECONDS (9.4-12.5) 01/31/18 09:10 INR 1.03 01/31/18 09:10 APTT 29.2 Seconds (25.1-36.5) 01/30/18 19:28 Attending/Attestation - Attestation I have fully participated in the care of the patient.: Yes I have reviewed all pertinent clinical information, including history, physical exam and plan: Yes Notes (Text): Pt had ERCP yesterday Improving clinically LFts still high c.w IV antibiotics OR tomorrow for Lap Cholecystectomy Plan d.w pt in detail
--- NOTE | 2018-02-02 10:46 | RAD ---
Date of service: 02/01/2018 PROCEDURE: ERCP HISTORY: ? CBD OBST COMPARISON: TECHNIQUE: Fluoroscopy was provided in the endoscopy suite. 178.9 sec of fluoro time. Cumulative dose 51.77 mGy. Five images were submitted FINDINGS: The study shows multiple stones in the distal common duct. There is placement of a common duct stent IMPRESSION: As above
--- NOTE | 2018-02-02 12:04 | CP.PCM.PN ---
Subjective - Date & Time of Evaluation Date of Evaluation: 02/02/18 Time of Evaluation: 08:00 - Subjective Subjective: PGY6 GI Fellow Progress Note Patient seen and examined bedside this morning. The patient states she is doing well with the exception of some mild RUQ abdominal pain. Overall, she states she is feeling significantly better. No fever, chills. 12 system ROS performed and negative except where stated. Objective - Vital Signs/Intake and Output Vital Signs (last 24 hours): Temp Pulse Resp BP Pulse Ox 98.3 F 70 20 111/80 96 02/02/18 06:00 02/02/18 06:00 02/02/18 06:00 02/02/18 06:00 02/02/18 06:00 - Medications Medications: Current Medications Heparin Sodium (Porcine) (Heparin) 5,000 units SC Q8H [facility]; Protocol Last Admin: 02/01/18 07:04 Dose: 5,000 units Potassium Chloride 20 meq/ (Sodium Chloride) 1,010 mls @ 100 mls/hr IV .Q10H6M [facility] Last Admin: 02/02/18 05:27 Dose: 100 mls/hr Morphine Sulfate (Morphine) 2 mg IVP Q4H PRN PRN Reason: Pain, moderate (4-7) Last Admin: 02/01/18 21:43 Dose: 2 mg Nicotine (Nicoderm Cq) 1 patch TD DAILY [facility] Last Admin: 02/02/18 10:49 Dose: 1 patch Ondansetron HCl (Zofran Inj) 4 mg IVP Q6H PRN PRN Reason: Nausea/Vomiting Last Admin: 02/01/18 21:53 Dose: 4 mg Ondansetron HCl (Zofran Inj) 4 mg IVP ONCE PRN PRN Reason: Nausea/Vomiting Pantoprazole Sodium (Protonix Inj) 40 mg IVP DAILY [facility] Last Admin: 02/02/18 10:51 Dose: 40 mg - Labs Labs: 02/02/18 06:30 02/02/18 06:30 PT 11.9 SECONDS (9.4-12.5) 01/31/18 09:10 INR 1.03 01/31/18 09:10 APTT 29.2 Seconds (25.1-36.5) 01/30/18 19:28 - Constitutional Appears: Non-toxic, No Acute Distress - Eye Exam Eye Exam: EOMI, PERRL - ENT Exam ENT Exam: Mucous Membranes Moist - Respiratory Exam Respiratory Exam: Clear to Ausculation Bilateral. absent: Rales, Rhonchi, Wheezes - Cardiovascular Exam Cardiovascular Exam: RRR, +S1, +S2 - GI/Abdominal Exam GI & Abdominal Exam: Soft, Tenderness (RUQ), Normal Bowel Sounds. absent: Distended, Firm, Guarding, Rigid, Organomegaly - Extremities Exam Extremities Exam: Normal Inspection. absent: Pedal Edema - Neurological Exam Neurological Exam: Alert, Awake, Oriented x3 - Psychiatric Exam Psychiatric exam: Normal Affect, Normal Mood - Skin Skin Exam: Dry, Warm Assessment and Plan - Assessment and Plan (Free Text) Assessment: Patient is a 52yo female with PMHx significant for diveritculitis, PUD who presented to the ED with severe abdominal pain -Biliary colic -Cholelithiasis -Choledocolithiasis -Nicotine dependence Plan: -S/P ERCP with sphincterotomy and balloon extraction of stones/sludge from CBD -Biliary stent placed during ERCP -LFTs downtrending -Outpatient follow up stressed for removal of stent -Patient to have cholecystectomy with surgical service tomorrow -NPO past MN for surgery -Post-op care per surgical service -No further recommendations at this time
--- NOTE | 2018-02-02 12:48 | CP.PCM.PN ---
<Dara Neely - Last Filed: 02/02/18 14:35> Subjective - Date & Time of Evaluation Date of Evaluation: 02/02/18 Time of Evaluation: 08:45 - Subjective Subjective: Internal Medicine Progress note for Dr. De Santiago Patient seen and examined this ama t bedside. NILTONEO per nursing. Patient underwent ERCP yesterday with stone removal and stent placement. Patient continues to complain of mild soreness in her RUQ but denies any GERMAN, f/c, CP, SOB, n/v, bowel changes, diarrhea, and dysuria. 12 point ROS otherwise negative Objective - Vital Signs/Intake and Output Vital Signs (last 24 hours): Temp Pulse Resp BP Pulse Ox 98.3 F 70 20 111/80 96 02/02/18 06:00 02/02/18 06:00 02/02/18 06:00 02/02/18 06:00 02/02/18 06:00 - Medications Medications: Current Medications Heparin Sodium (Porcine) (Heparin) 5,000 units SC Q8H [facility]; Protocol Last Admin: 02/01/18 07:04 Dose: 5,000 units Potassium Chloride 20 meq/ (Sodium Chloride) 1,010 mls @ 100 mls/hr IV .Q10H6M [facility] Last Admin: 02/02/18 05:27 Dose: 100 mls/hr Morphine Sulfate (Morphine) 2 mg IVP Q4H PRN PRN Reason: Pain, moderate (4-7) Last Admin: 02/01/18 21:43 Dose: 2 mg Nicotine (Nicoderm Cq) 1 patch TD DAILY [facility] Last Admin: 02/02/18 10:49 Dose: 1 patch Ondansetron HCl (Zofran Inj) 4 mg IVP Q6H PRN PRN Reason: Nausea/Vomiting Last Admin: 02/01/18 21:53 Dose: 4 mg Ondansetron HCl (Zofran Inj) 4 mg IVP ONCE PRN PRN Reason: Nausea/Vomiting Pantoprazole Sodium (Protonix Inj) 40 mg IVP DAILY [facility] Last Admin: 02/02/18 10:51 Dose: 40 mg - Labs Labs: 02/02/18 06:30 02/02/18 06:30 PT 11.9 SECONDS (9.4-12.5) 01/31/18 09:10 INR 1.03 01/31/18 09:10 APTT 29.2 Seconds (25.1-36.5) 01/30/18 19:28 - Constitutional Appears: Well, Non-toxic, No Acute Distress - Head Exam Head Exam: ATRAUMATIC, NORMOCEPHALIC - Eye Exam Eye Exam: EOMI - ENT Exam ENT Exam: Mucous Membranes Moist - Respiratory Exam Respiratory Exam: NORMAL BREATHING PATTERN - Cardiovascular Exam Cardiovascular Exam: REGULAR RHYTHM - GI/Abdominal Exam GI & Abdominal Exam: Soft, Tenderness (RUQ and epigastric mild). absent: Distended, Guarding - Extremities Exam Extremities Exam: absent: Calf Tenderness, Pedal Edema - Neurological Exam Neurological Exam: Alert, Oriented x3 - Psychiatric Exam Psychiatric exam: Normal Affect, Normal Mood - Skin Skin Exam: Dry, Intact, Normal Color, Warm Assessment and Plan - Assessment and Plan (Free Text) Assessment: 52 yr old F with PMH PUD admitted for gallstone pancreatitis, s/p ERCP with stone removal and stent placement, cholecystectomy scheduled for 02/03 Plan: 1. Pancreatitis likely 2/2 gallstone: - ERCP; stone and sludge removal, stent placement - will need interval stent removal in 3-4 weeks per GI - Low fat heart healthy diet, NPO after midnight - Protonix - Zofran prn - morphine 2q6 - GI consulted - Abraham - Surgery - Esperanza 2. Transaminitis likely 2/2 gallstone obstruction: - MRCP complete showing sludge/stones and dilated CBD - ERCP with stone/ sludge removal and stent placement - Surgery planning for Cholecystectomy tomorrow 3. Hx of PUD: - Protonix 40 IV daily 4. Hx of Smoking - Nicoderm patch given - no further symptomatic complaints 5. PPX: GI: Protonix DVT: SCDs Patient seen examined and discussed with Dr. Ginger Neely, PGY 1 <Ginger De Santiago R - Last Filed: 02/04/18 07:46> Objective - Vital Signs/Intake and Output Vital Signs (last 24 hours): Temp Pulse Resp BP Pulse Ox 97.7 F 88 18 133/89 95 02/03/18 22:35 02/03/18 22:35 02/03/18 22:35 02/03/18 22:35 02/03/18 22:35 - Medications Medications: Current Medications Heparin Sodium (Porcine) (Heparin) 5,000 units SC Q8H [facility]; Protocol Last Admin: 02/03/18 18:30 Dose: Not Given Potassium Chloride 20 meq/ (Sodium Chloride) 1,010 mls @ 75 mls/hr IV .[id number] [facility] Last Admin: 02/03/18 20:38 Dose: 75 mls/hr Morphine Sulfate (Morphine) 2 mg IVP Q4H PRN PRN Reason: Pain, severe (8-10) Nicotine (Nicoderm Cq) 1 patch TD DAILY [facility] Last Admin: 02/03/18 09:10 Dose: 1 patch Ondansetron HCl (Zofran Inj) 4 mg IVP Q6H PRN PRN Reason: Nausea/Vomiting Last Admin: 02/01/18 21:53 Dose: 4 mg Ondansetron HCl (Zofran Inj) 4 mg IVP ONCE PRN PRN Reason: Nausea/Vomiting Oxycodone/Acetaminophen (Percocet 5/325 Mg Tab) 1 tab PO Q4H PRN PRN Reason: Pain, moderate (4-7) Stop: 02/06/18 17:57 Last Admin: 02/04/18 03:21 Dose: 1 tab Pantoprazole Sodium (Protonix Inj) 40 mg IVP DAILY [facility] Last Admin: 02/03/18 09:11 Dose: 40 mg Senna/Docusate Sodium (Senokot S 50 Mg-8.6 Mg) 1 tab PO BID [facility] Last Admin: 02/03/18 18:31 Dose: Not Given - Labs Labs: 02/03/18 06:30 02/03/18 06:30 PT 11.9 SECONDS (9.4-12.5) 01/31/18 09:10 INR 1.03 01/31/18 09:10 APTT 29.2 Seconds (25.1-36.5) 01/30/18 19:28 Attending/Attestation - Attestation I have personally seen and examined this patient.: Yes I have fully participated in the care of the patient.: Yes I have reviewed all pertinent clinical information, including history, physical exam and plan: Yes Notes (Text): Patient seen and examined by me with resident at 11:10 AM on 02/02/18. Case including HPI, physical exam, and assessment and plan discussed with resident. Agree with above with following additions/corrections. Patient is a 52-year-old female past medical history significant for peptic ulcer disease and diverticulosis that presented to the emergency room with intermittent right upper quadrant abdominal pain which started 01/04/2018 and has progressively gotten worse. Patient states she feels better. Patient states her abdomen feels "sore" today but pain has improved. Patient tolerated eggplant parmesan last night. Patient denies nausea or vomiting today. No chest pain or shortness of breath. No headaches or dizziness. No fevers or chills. No dysuria. Physical exam: General: Awake and alert lying in bed in no acute distress HEENT: Normocephalic, atraumatic. Extraocular muscles intact, pupils equal and reactive, no scleral icterus. Oropharynx is pink moist. Neck is supple. Cardiovascular: Regular rhythm. Normal S1 and S2. No murmurs, rubs, or gallops appreciated Pulmonary: Normal respiratory effort. No rhonchi, rales, or wheezing appreciated Gastrointestinal: Soft, nondistended. Positive right upper quadrant tenderness. Positive bowel sounds all 4 quadrants. No guarding. Musculoskeletal: Moves all extremities. No calf tenderness. No edema appreciated. Central nervous system: AAO x 3, CN2-12 grossly intact Dermatologic: Skin warm and dry. Assessment and plan: Patient is a 52-year-old female past medical history significant for peptic ulcer disease and diverticulosis that presented to the emergency room with intermittent right upper quadrant abdominal pain which started 01/04/2018 and has progressively gotten worse. 1. Gallstone pancreatitis. Choledocholithiasis. Cholelithiasis. S/P ERCP 02/01/18 which showed multiple stones in distal common duct, biliary stent was placed. For cholecystectomy 02/03/18. Abdominal ultrasound per radiologist showed cholelithiasis with positive sonographic Rose's sign, no mural thickening or pericholecystic fluid, findings are equivocal for cholecystitis, there is evidence of biliary obstruction with dilatation of the common bile duct and intrahepatic bile ducts. CT abdomen and pelvis per radiologist showed extensive biliary tree dilatation identified due to multiple choledocholit hiasis obstructing the mid distal common bile duct, moderate intra-and extrahepatic biliary dilatation, cholelithiasis also remains in the gallbladder lumen; small cyst versus choledochocele left love liver; limited sigmoid diverticulosis without diverticulitis; small bilateral adnexal cyst. MRCP per radiologist showed gallstones, stones or sludge in the distal common duct, mild dilatation of the common duct measuring 9 mm. GI following, recommendations appreciated. Surgery following, recommendations appreciated. 2. Transaminitis. Secondary to #1. Stable. GI following, recommendations appreci ated. Hepatitis panel negative. Continue to monitor 3. Hypokalemia. Resolved. Continue to monitor. 4. History of PUD. Continue Protonix 5. Tobacco abuse. Counseled on cessation. Continue with nicoderm patch. 6. GI/DVT prophylaxis. Protonix/heparin 7. Patient is a full code Case was discussed in detail with the patient regarding current diagnosis and treatment plan. All questions answered.
[2018-02-02] MEDS: Morphine 2 mg/ml ISec IVP PRN (13:09)
[2018-02-03 07:19] LABS: BASO # 0.02 K/mm3 (0.0-2.0); BASO % 0.6 % (0.0-3.0); EOS # 0.1 (0.0-0.7); EOS % 2.2 % (1.5-5.0); GRAN # 1.93 (1.4-6.5); GRAN % 53.4 % (50.0-68.0); HEMOGLOBIN 12.9 g/dL (12.0-16.0); LYMPH # 1.1 (1.2-3.4); LYMPH % 31.6 % (22.0-35.0); MEAN CELL VOLUME 93.6 fl (80.0-105.0); MEAN CORPUSCULAR HEMOGLOBIN 30.4 pg (25.0-35.0); MEAN CORPUSCULAR HGB CONC 32.4 g/dl (31.0-37.0); MEAN PLATELET VOLUME 11.2 fl (7.0-11.0); MONO # 0.4 (0.1-0.6); MONO % 12.2 % (1.0-6.0); RBC 4.25 10^6/uL (3.5-6.1); WHITE BLOOD COUNT 3.6 10^3/uL (4.5-11.0)
[2018-02-03 07:46] LABS: ALB/GLOB RATIO 1.1 (1.1-1.8); ALBUMIN 3.2 g/dL (3.0-4.8); ALT/SGPT 134 U/L (7-56); AST/SGOT 138 U/L (14-36); BLOOD UREA NITROGEN 6 mg/dL (7-21); CALCIUM 8.5 mg/dL (8.4-10.5); GFR NON-AFRICAN AMERICAN > 60
--- NOTE | 2018-02-03 09:36 | CP.PCM.PN ---
<Jack Betancourt - Last Filed: 02/03/18 16:35> Subjective - Date & Time of Evaluation Date of Evaluation: 02/03/18 Time of Evaluation: 07:50 - Subjective Subjective: PGY6 GI Fellow Progress Note Patient seen and examined bedside this morning. The patient states that she is feeling much better today and has increased appetite. No episodes overnight. 12 system ROS performed and negative except where stated Objective - Vital Signs/Intake and Output Vital Signs (last 24 hours): Temp Pulse Resp BP Pulse Ox 98 F 58 L 20 150/82 95 02/03/18 06:00 02/03/18 06:00 02/03/18 06:00 02/03/18 06:00 02/03/18 06:00 Intake and Output: 02/03/18 02/03/18 06:59 18:59 Intake Total 1200 Balance 1200 - Medications Medications: Current Medications Heparin Sodium (Porcine) (Heparin) 5,000 units SC Q8H [facility]; Protocol Last Admin: 02/01/18 07:04 Dose: 5,000 units Potassium Chloride 20 meq/ (Sodium Chloride) 1,010 mls @ 100 mls/hr IV .Q10H6M [facility] Last Admin: 02/03/18 07:49 Dose: 100 mls/hr Morphine Sulfate (Morphine) 2 mg IVP Q4H PRN PRN Reason: Pain, moderate (4-7) Last Admin: 02/02/18 13:09 Dose: 2 mg Nicotine (Nicoderm Cq) 1 patch TD DAILY [facility] Last Admin: 02/03/18 09:10 Dose: 1 patch Ondansetron HCl (Zofran Inj) 4 mg IVP Q6H PRN PRN Reason: Nausea/Vomiting Last Admin: 02/01/18 21:53 Dose: 4 mg Ondansetron HCl (Zofran Inj) 4 mg IVP ONCE PRN PRN Reason: Nausea/Vomiting Pantoprazole Sodium (Protonix Inj) 40 mg IVP DAILY [facility] Last Admin: 02/03/18 09:11 Dose: 40 mg - Labs Labs: 02/03/18 06:30 02/03/18 06:30 PT 11.9 SECONDS (9.4-12.5) 01/31/18 09:10 INR 1.03 01/31/18 09:10 APTT 29.2 Seconds (25.1-36.5) 01/30/18 19:28 - Constitutional Appears: Non-toxic, No Acute Distress - Eye Exam Eye Exam: EOMI, PERRL - ENT Exam ENT Exam: Mucous Membranes Moist - Respiratory Exam Respiratory Exam: Clear to Ausculation Bilateral. absent: Rales, Rhonchi, Wheezes - Cardiovascular Exam Cardiovascular Exam: RRR, +S1, +S2 - GI/Abdominal Exam GI & Abdominal Exam: Soft, Normal Bowel Sounds. absent: Distended, Firm, Guarding, Rigid, Tenderness, Organomegaly - Extremities Exam Extremities Exam: Normal Inspection. absent: Pedal Edema - Neurological Exam Neurological Exam: Alert, Awake, Oriented x3 - Psychiatric Exam Psychiatric exam: Normal Affect, Normal Mood - Skin Skin Exam: Dry, Warm Assessment and Plan - Assessment and Plan (Free Text) Assessment: Patient is a 52yo female with PMHx significant for diveritculitis, PUD who presented to the ED with severe abdominal pain -Biliary colic -Cholelithiasis -Choledocolithiasis -Nicotine dependence Plan: -Pt to have cholecystectomy today with surgical service -Biliary stent placed during ERCP -Outpatient follow up stressed for removal of stent -Post-op care per surgical service -No further recommendations at this time <Michelle Rosario V - Last Filed: 02/03/18 23:03> Objective - Vital Signs/Intake and Output Vital Signs (last 24 hours): Temp Pulse Resp BP Pulse Ox 97.7 F 88 18 133/89 95 02/03/18 22:35 02/03/18 22:35 02/03/18 22:35 02/03/18 22:35 02/03/18 22:35 - Medications Medications: Current Medications Heparin Sodium (Porcine) (Heparin) 5,000 units SC Q8H [facility]; Protocol Last Admin: 02/03/18 18:30 Dose: Not Given Potassium Chloride 20 meq/ (Sodium Chloride) 1,010 mls @ 75 mls/hr IV .[id number] [facility] Last Admin: 02/03/18 20:38 Dose: 75 mls/hr Metoclopramide HCl (Reglan) 10 mg IV ONCE PRN PRN Reason: Nausea/Vomiting Stop: 02/03/18 23:59 Morphine Sulfate (Morphine) 2 mg IVP Q4H PRN PRN Reason: Pain, severe (8-10) Nicotine (Nicoderm Cq) 1 patch TD DAILY [facility] Last Admin: 02/03/18 09:10 Dose: 1 patch Ondansetron HCl (Zofran Inj) 4 mg IVP Q6H PRN PRN Reason: Nausea/Vomiting Last Admin: 02/01/18 21:53 Dose: 4 mg Ondansetron HCl (Zofran Inj) 4 mg IVP ONCE PRN PRN Reason: Nausea/Vomiting Oxycodone/Acetaminophen (Percocet 5/325 Mg Tab) 1 tab PO Q4H PRN PRN Reason: Pain, moderate (4-7) Stop: 02/06/18 17:57 Pantoprazole Sodium (Protonix Inj) 40 mg IVP DAILY [facility] Last Admin: 02/03/18 09:11 Dose: 40 mg Senna/Docusate Sodium (Senokot S 50 Mg-8.6 Mg) 1 tab PO BID [facility] Last Admin: 02/03/18 18:31 Dose: Not Given - Labs Labs: 02/03/18 06:30 02/03/18 06:30 PT 11.9 SECONDS (9.4-12.5) 01/31/18 09:10 INR 1.03 01/31/18 09:10 APTT 29.2 Seconds (25.1-36.5) 01/30/18 19:28 Attending/Attestation - Attestation I have personally seen and examined this patient.: Yes I have fully participated in the care of the patient.: Yes I have reviewed all pertinent clinical information, including history, physical exam and plan: Yes Notes (Text): This is an addendum to GI progress report dictated by the GI Fellow. The patient was seen and examined earlier. Medical records, lab studies, imagings were reviewed. Last 24 hours events reviewed. Agreed with the above treatment plan as outlined in GI Fellow 's notes with the addition of the following status post cholecystectomy LFT mild transaminase elevation shows downward trend total bilirubin shows downward trend Follow-up LFTs Repeat ERCP for removal of the sludge and stone and stent in 3 weeks time 02/03/18 23:01
[2018-02-03] MEDS: Piperacillin/Tazobact 3.375 gm 100 ML IVPB SCH ×2 (11:04→18:31)
--- NOTE | 2018-02-03 12:33 | CP.PCM.PN ---
<Jasen De Santiago - Last Filed: 02/03/18 12:27> Subjective - Date & Time of Evaluation Date of Evaluation: 02/03/18 (\) Time of Evaluation: 12:28 - Subjective Subjective: Jasen De Santiago DO PGY1 Internal Medicine Ceramic Worker - Medicine Progress Note Patient was seen and examined this morning at bedside; tentatively scheduled for OR this afternoon Patient has been NPO overnight; moving bowels well, voiding well. Does admit to mild abodminal pain in her RUQ this AM. Afebrile overnight. Denies chest pain, SOB this morning. Objective - Vital Signs/Intake and Output Vital Signs (last 24 hours): Temp Pulse Resp BP Pulse Ox 98 F 58 L 20 150/82 95 02/03/18 06:00 02/03/18 06:00 02/03/18 06:00 02/03/18 06:00 02/03/18 06:00 Intake and Output: 02/03/18 02/03/18 06:59 18:59 Intake Total 1200 Balance 1200 - Medications Medications: Current Medications Heparin Sodium (Porcine) (Heparin) 5,000 units SC Q8H [facility]; Protocol Last Admin: 02/01/18 07:04 Dose: 5,000 units Potassium Chloride 20 meq/ (Sodium Chloride) 1,010 mls @ 100 mls/hr IV .Q10H6M [facility] Last Admin: 02/03/18 07:49 Dose: 100 mls/hr Piperacillin Sod/Tazobactam Sod (Zosyn 3.375 In Ns 100ml) 100 mls @ 25 mls/hr IVPB Q8H [facility]; Protocol Stop: 02/03/18 22:44 Last Admin: 02/03/18 11:04 Dose: 25 mls/hr Morphine Sulfate (Morphine) 2 mg IVP Q4H PRN PRN Reason: Pain, moderate (4-7) Last Admin: 02/02/18 13:09 Dose: 2 mg Nicotine (Nicoderm Cq) 1 patch TD DAILY [facility] Last Admin: 02/03/18 09:10 Dose: 1 patch Ondansetron HCl (Zofran Inj) 4 mg IVP Q6H PRN PRN Reason: Nausea/Vomiting Last Admin: 02/01/18 21:53 Dose: 4 mg Ondansetron HCl (Zofran Inj) 4 mg IVP ONCE PRN PRN Reason: Nausea/Vomiting Pantoprazole Sodium (Protonix Inj) 40 mg IVP DAILY [facility] Last Admin: 02/03/18 09:11 Dose: 40 mg - Labs Labs: 02/03/18 06:30 02/03/18 06:30 PT 11.9 SECONDS (9.4-12.5) 01/31/18 09:10 INR 1.03 01/31/18 09:10 APTT 29.2 Seconds (25.1-36.5) 01/30/18 19:28 - Constitutional Appears: Well, Non-toxic, No Acute Distress, Comfortable in bed - Head Exam Head Exam: ATRAUMATIC, NORMOCEPHALIC - Eye Exam Eye Exam: EOMI - ENT Exam ENT Exam: Mucous Membranes Moist - Respiratory Exam Respiratory Exam: NORMAL BREATHING PATTERN, CTABL - Cardiovascular Exam Cardiovascular Exam: REGULAR RHYTHM, NO MURMUR - GI/Abdominal Exam GI & Abdominal Exam: Abdomen is soft w/ mild RUQ tenderness to palpation - Extremities Exam Extremities Exam: absent: Calf Tenderness, Pedal Edema - Neurological Exam Neurological Exam: Alert, Oriented x3 - Psychiatric Exam Psychiatric exam: Normal Affect, Normal Mood - Skin Skin Exam: Dry, Intact, Normal Color, Warm Assessment and Plan - Assessment and Plan (Free Text) Assessment: 52F w/ PMH PUD presented to [facility] on 01/30 w/ c/o abdominal pain; patient was found to have gallstone pancreatitis on admission. S/p ERCP for stone removal and stent placement along biliary tract; Will be going to OR this afternoon for cholecystectomy. Plan: Gallstone pancreatitis - ERCP; stone and sludge removal, stent placement - will need interval stent removal in 3-4 weeks per GI - NPO overnight for OR today - Resume Low fat HHD as per surgery when appropriate - C/w PPI - Zofran PRN - Pain management post OR as per surgery - GI Consulted, appreciate reccs - Surgery Consulted, appreciate reccs Transaminitis ML 2/2 gallstone obstruction - AST/ ALT worsening - MRCP complete showing sludge/stones and dilated CBD - ERCP with stone/ sludge removal and stent placement - Will reevaluate post cholecystectomy Hx of PUD: - C/w Protonix 40 IV daily Hx of Smoking - Nicoderm patch given - no further symptomatic complaints PPX: GI: Protonix DVT: SCDs Patient was seen, evaluated, and discussed w/ attending physician Dr. Ginger De Santiago DO PGY1 - Internal Medicine Ceramic Worker - Medicine Progress Note <Ginger De Santiago R - Last Filed: 02/04/18 11:26> Objective - Vital Signs/Intake and Output Vital Signs (last 24 hours): Temp Pulse Resp BP Pulse Ox 98.1 F 84 18 161/99 H 95 02/04/18 06:00 02/04/18 06:00 02/04/18 06:00 02/04/18 06:00 02/04/18 06:00 - Medications Medications: Current Medications Heparin Sodium (Porcine) (Heparin) 5,000 units SC Q8H [facility]; Protocol Last Admin: 02/03/18 18:30 Dose: Not Given Potassium Chloride 20 meq/ (Sodium Chloride) 1,010 mls @ 75 mls/hr IV .[id number] [facility] Last Admin: 02/04/18 09:10 Dose: 75 mls/hr Morphine Sulfate (Morphine) 2 mg IVP Q4H PRN PRN Reason: Pain, severe (8-10) Nicotine (Nicoderm Cq) 1 patch TD DAILY [facility] Last Admin: 02/04/18 09:09 Dose: 1 patch Ondansetron HCl (Zofran Inj) 4 mg IVP Q6H PRN PRN Reason: Nausea/Vomiting Last Admin: 02/01/18 21:53 Dose: 4 mg Ondansetron HCl (Zofran Inj) 4 mg IVP ONCE PRN PRN Reason: Nausea/Vomiting Oxycodone/Acetaminophen (Percocet 5/325 Mg Tab) 1 tab PO Q4H PRN PRN Reason: Pain, moderate (4-7) Stop: 02/06/18 17:57 Last Admin: 02/04/18 03:21 Dose: 1 tab Pantoprazole Sodium (Protonix Inj) 40 mg IVP DAILY [facility] Last Admin: 02/04/18 09:11 Dose: 40 mg Senna/Docusate Sodium (Senokot S 50 Mg-8.6 Mg) 1 tab PO BID [facility] Last Admin: 02/04/18 09:11 Dose: 1 tab - Labs Labs: 02/04/18 06:00 02/04/18 06:00 PT 11.9 SECONDS (9.4-12.5) 01/31/18 09:10 INR 1.03 01/31/18 09:10 APTT 29.2 Seconds (25.1-36.5) 01/30/18 19:28 Attending/Attestation - Attestation I have personally seen and examined this patient.: Yes I have fully participated in the care of the patient.: Yes I have reviewed all pertinent clinical information, including history, physical exam and plan: Yes Notes (Text): Patient seen and examined by me with resident at 9:20AM on 02/03/18. Case including HPI, physical exam, and assessment and plan discussed with resident. Agree with above with following additions/corrections. Patient is a 52-year-old female past medical history significant for peptic ulcer disease and diverticulosis that presented to the emergency room with intermittent right upper quadrant abdominal pain which started 01/04/2018 and has progressively gotten worse. Patient states she feels much better today. Patient states she had some pain in her abdomen this morning but that has resolved. Patient tolerated diet yesterday. Patient for surgery today. No nausea or vomiting. No chest pain or shortness of breath. No headaches or dizziness. No fevers or chills. No dysuria. Patient had bowel movement this morning. Physical exam: General: Awake and alert lying in bed in no acute distress HEENT: Normocephalic, atraumatic. Extraocular muscles intact, pupils equal and reactive, no scleral icterus. Oropharynx is pink moist. Neck is supple. Cardiovascular: Regular rhythm. Normal S1 and S2. No murmurs, rubs, or gallops appreciated Pulmonary: Normal respiratory effort. No rhonchi, rales, or wheezing appreciated Gastrointestinal: Soft, nondistended. Positive right upper quadrant tenderness. Positive bowel sounds all 4 quadrants. No guarding. Musculoskeletal: Moves all extremities. No calf tenderness. No edema appreciated. Central nervous system: AAO x 3, CN2-12 grossly intact Dermatologic: Skin warm and dry. Assessment and plan: Patient is a 52-year-old female past medical history significant for peptic ulcer disease and diverticulosis that presented to the emergency room with intermittent right upper quadrant abdominal pain which started 01/04/2018 and has progressively gotten worse. 1. Gallstone pancreatitis. Choledocholithiasis. Cholelithiasis. S/P ERCP 02/01/18 which showed multiple stones in distal common duct, biliary stent was placed. Patient for cholecystectomy today. Abdominal ultrasound per radiologist showed cholelithiasis with positive sonographic Rose's sign, no mural thickening or pericholecystic fluid, findings are equivocal for cholecystitis, there is evidence of biliary obstruction with dilatation of the common bile duct and intrahepatic bile ducts. CT abdomen and pelvis per radiologist showed extensive biliary tree dilatation identified due to multiple choledocholithiasis obstructing the mid distal common bile duct, moderate intra- and extrahepatic biliary dilatation, cholelithiasis also remains in the gallbladder lumen; small cyst versus choledochocele left love liver; limited sigmoid diverticulosis without diverticulitis; small bilateral adnexal cyst. MRCP per radiologist showed gallstones, stones or sludge in the distal common duct, mild dilatation of the common duct measuring 9 mm. GI following, recomme ndations appreciated. Surgery following, recommendations appreciated. 2. Transaminitis. Secondary to #1. Stable. GI following, recommendations appreciated. Hepatitis panel negative. Continue to monitor 3. Hypokalemia. Resolved. Continue to monitor. 4. History of PUD. Continue Protonix 5. Tobacco abuse. Counseled on cessation. Continue with nicoderm patch. 6. GI/DVT prophylaxis. Protonix/heparin 7. Patient is a full code Case was discussed in detail with the patient regarding current diagnosis and treatment plan. All questions answered.
[2018-02-03] MEDS ORDERED: Lidocaine 1% w Epi 1:100,000 Inj ONE (13:54)
[2018-02-03] MEDS ORDERED: Bupivacaine 0.5% 50 ML IJ ONE ×2 (13:54→16:05)
[2018-02-03] MEDS ORDERED: Propofol 10 mg/ml Inj (20 ML) ONE (15:43)
[2018-02-03] MEDS ORDERED: Midazolam 2 MG/2 ML VIAL ONE (15:43)
[2018-02-03] MEDS ORDERED: Succinylcholine 200 mg/10 ml Inj IV ONE (15:44)
[2018-02-03] MEDS ORDERED: Rocuronium 10 mg/ml (5 ml) ONE (15:45)
[2018-02-03] MEDS ORDERED: CeFAZolin 1 gm in NS 100ml IVPB ONE (16:00)
[2018-02-03] MEDS ORDERED: Lidocaine 1%/Epinephrine 1:100000 30 ml vial IJ ONE (16:05)
[2018-02-03] MEDS ORDERED: Labetalol 5mg/ml (4ml) ONE (16:22)
[2018-02-03] MEDS ORDERED: Sevoflurane - Inhalation Anesthetic Liq (250 ml) ONE (16:36)
[2018-02-03] MEDS ORDERED: HYDROmorphone 0.5 mg/0.5 ml ISec IVP PRN (17:26)
[2018-02-03] MEDS ORDERED: Lactated Ringer's 1,000 ML IV SCH (17:30)
[2018-02-03] MEDS ORDERED: Neostigmine Methylsulfate 3mg/3ml Syringe IV ONE (17:46)
--- NOTE | 2018-02-03 17:55 | PCM.SURG1 ---
Surgeon's Initial Post Op Note - Surgeon's Notes Surgeon: Dr. [facility] [employer] [facility] Associate: Dr. Kumari PGY3, Dr. Rangel PGY2 Type of Anesthesia: General Endo Pre-Operative Diagnosis: gallstone pancreatitis Operative Findings: see operative report Post-Operative Diagnosis: same Operation Performed: laparoscopic cholecystectomy Specimen/Specimens Removed: gallbladder Estimated Blood Loss: EBL {In ML}: 30 Blood Products Given: N/A Drains Used: No Drains Post-Op Condition: Good Date of Surgery/Procedure: 02/03/18 Time of Surgery/Procedure: 17:55
[2018-02-03] MEDS ORDERED: Oxycodone/Acetaminophen 5/325 mg Tab PO PRN (17:56)
[2018-02-03] MEDS ORDERED: Morphine 2 mg/ml ISec IVP PRN (17:59)
[2018-02-03] MEDS ORDERED: HYDROmorphone 0.5 mg/0.5 ml ISec IVP ONE ×2 (18:00→18:35)
[2018-02-03] MEDS ORDERED: HYDROmorphone 0.5 mg/0.5 ml ISec ONE ×2 (18:02→18:34)
[2018-02-03] MEDS: Docusate-Senna 50 mg-8.6 mg Tab PO SCH (18:31)
[2018-02-03 18:55] VITALS: O2SAT 95
[2018-02-03 22:35] VITALS: RESP 18
--- NOTE | 2018-02-04 08:07 | CP.PCM.PN ---
<Dara Neely - Last Filed: 02/04/18 12:23> Subjective - Date & Time of Evaluation Date of Evaluation: 02/04/18 Time of Evaluation: 06:55 - Subjective Subjective: General surgery progress ntoe for Dr. Mata Patient seen and examined this am at bedside. NAEO per nursing. Patient states she is feeling well and has been able to drink some water overngiht. She states that her pain is improved/ resolved and that she is looking for pyle to eating breakfast this am. She otherwise denies GERMAN, CP, SOB, f/c, n/v, abdominal pain and extremity pain/weakness Objective - Vital Signs/Intake and Output Vital Signs (last 24 hours): Temp Pulse Resp BP Pulse Ox 97.7 F 88 18 133/89 95 02/03/18 22:35 02/03/18 22:35 02/03/18 22:35 02/03/18 22:35 02/03/18 22:35 - Medications Medications: Current Medications Heparin Sodium (Porcine) (Heparin) 5,000 units SC Q8H [facility]; Protocol Last Admin: 02/03/18 18:30 Dose: Not Given Potassium Chloride 20 meq/ (Sodium Chloride) 1,010 mls @ 75 mls/hr IV .[id number] [facility] Last Admin: 02/03/18 20:38 Dose: 75 mls/hr Morphine Sulfate (Morphine) 2 mg IVP Q4H PRN PRN Reason: Pain, severe (8-10) Nicotine (Nicoderm Cq) 1 patch TD DAILY [facility] Last Admin: 02/03/18 09:10 Dose: 1 patch Ondansetron HCl (Zofran Inj) 4 mg IVP Q6H PRN PRN Reason: Nausea/Vomiting Last Admin: 02/01/18 21:53 Dose: 4 mg Ondansetron HCl (Zofran Inj) 4 mg IVP ONCE PRN PRN Reason: Nausea/Vomiting Oxycodone/Acetaminophen (Percocet 5/325 Mg Tab) 1 tab PO Q4H PRN PRN Reason: Pain, moderate (4-7) Stop: 02/06/18 17:57 Last Admin: 02/04/18 03:21 Dose: 1 tab Pantoprazole Sodium (Protonix Inj) 40 mg IVP DAILY [facility] Last Admin: 02/03/18 09:11 Dose: 40 mg Senna/Docusate Sodium (Senokot S 50 Mg-8.6 Mg) 1 tab PO BID [facility] Last Admin: 02/03/18 18:31 Dose: Not Given - Labs Labs: 02/03/18 06:30 02/03/18 06:30 PT 11.9 SECONDS (9.4-12.5) 01/31/18 09:10 INR 1.03 01/31/18 09:10 APTT 29.2 Seconds (25.1-36.5) 01/30/18 19:28 - Constitutional Appears: Well, Non-toxic, No Acute Distress - Head Exam Head Exam: ATRAUMATIC, NORMOCEPHALIC - Eye Exam Eye Exam: EOMI - ENT Exam ENT Exam: Mucous Membranes Moist - Respiratory Exam Respiratory Exam: NORMAL BREATHING PATTERN - Cardiovascular Exam Cardiovascular Exam: REGULAR RHYTHM - GI/Abdominal Exam GI & Abdominal Exam: Soft. absent: Distended, Guarding, Tenderness Additional comments: operative dressings in place cdi - Extremities Exam Extremities Exam: absent: Calf Tenderness, Pedal Edema - Neurological Exam Neurological Exam: Alert, Awake, Oriented x3 - Psychiatric Exam Psychiatric exam: Normal Affect, Normal Mood - Skin Skin Exam: Dry, Intact, Normal Color, Warm Additional comments: operative dressings in place cdi Assessment and Plan - Assessment and Plan (Free Text) Assessment: 52 yr old female with gallstone pancreatitis and choledocholithiasis s/p laparoscopic cholecystectomy POD 1 Plan: Heart healthy diet this am will f/u tolerance F/u LFT pain control IVF until tolerating diet zofran as needed encourage ambulation, IS use and OOBTC clear for D/c from surgical standpoint patient is to follow up with Dr. Mata in his office in 5-[address] Esperanza Neely, PGY 1 <Kvng Mata - Last Filed: 02/05/18 23:01> Objective - Vital Signs/Intake and Output Vital Signs (last 24 hours): Temp Pulse Resp BP Pulse Ox 98.1 F 84 18 161/99 H 95 02/04/18 06:00 02/04/18 06:00 02/04/18 06:00 02/04/18 06:00 02/04/18 06:00 - Labs Labs: 02/04/18 06:00 02/04/18 06:00 PT 11.9 SECONDS (9.4-12.5) 01/31/18 09:10 INR 1.03 01/31/18 09:10 APTT 29.2 Seconds (25.1-36.5) 01/30/18 19:28 Attending/Attestation - Attestation I have fully participated in the care of the patient.: Yes I have reviewed all pertinent clinical information, including history, physical exam and plan: Yes Notes (Text): Pt is improving clinically PO antibiotics DC plan f/u as out pt Plan d.w pt in detail
[2018-02-04 08:46] LABS: BASO # 0.01 K/mm3 (0.0-2.0); BASO % 0.1 % (0.0-3.0); EOS % 0.3 % (1.5-5.0); GRAN # 5.67 (1.4-6.5); GRAN % 76.2 % (50.0-68.0); HEMOGLOBIN 13.6 g/dL (12.0-16.0); LYMPH # 1.1 (1.2-3.4); LYMPH % 15.2 % (22.0-35.0); MEAN CELL VOLUME 93.9 fl (80.0-105.0); MEAN CORPUSCULAR HEMOGLOBIN 30.6 pg (25.0-35.0); MEAN CORPUSCULAR HGB CONC 32.5 g/dl (31.0-37.0); MEAN PLATELET VOLUME 11.8 fl (7.0-11.0); MONO # 0.6 (0.1-0.6); MONO % 8.2 % (1.0-6.0); RBC 4.45 10^6/uL (3.5-6.1); WHITE BLOOD COUNT 7.4 10^3/uL (4.5-11.0)
[2018-02-04] MEDS: Docusate-Senna 50 mg-8.6 mg Tab PO SCH (09:11)
[2018-02-04 09:29] LABS: ALB/GLOB RATIO 1.2 (1.1-1.8); ALBUMIN 3.5 g/dL (3.0-4.8); ALT/SGPT 168 U/L (7-56); AST/SGOT 211 U/L (14-36); BLOOD UREA NITROGEN 4 mg/dL (7-21); CALCIUM 8.9 mg/dL (8.4-10.5); GFR NON-AFRICAN AMERICAN > 60
[2018-02-04 09:48] VITALS: BP 161/99; PULSE 84; TEMP 98.1
--- NOTE | 2018-02-04 13:47 | CP.PCM.DIS ---
<Jasen De Santiago - Last Filed: 02/04/18 18:20> Provider - Provider Date of Admission: 01/30/18 21:00 Attending physician: Ginger De Santiago DO Primary care physician: Fabian Rosario MD Consults: 01/30/18 21:36 Gastroenterology Consult Stat Comment: Consulting Provider: Michelle Rosario V Consulting Physician: Michelle Rosario V Reason for Consult: gallstone pancreatitis 01/30/18 21:44 General Surgery Consult Stat Comment: Consulting Provider: Kvng Mata Consulting Physician: Kvng Mata Reason for Consult: pancreatitis 01/31/18 01:11 Inpatient STATE APPELLATE CLERK Core Measures Referral Routine Comment: Physician Instructions: Reason For Exam: met criteria Transition In Care/Readmission Reduction Routine Comment: Physician Instructions: Reason For Exam: met criteria Time Spent in preparation of Discharge (in minutes): 40 Diagnosis - Discharge Diagnosis (1) Choledocholithiasis with acute cholecystitis Status: Acute (2) Gallstone pancreatitis Status: Acute Hospital Course - Lab Results Lab Results: Micro Results 01/30/18 22:30 Blood-Venous Blood Culture - Preliminary NO GROWTH AFTER 4 DAYS 01/30/18 23:00 Blood-Venous Blood Culture - Preliminary NO GROWTH AFTER 4 DAYS 01/30/18 21:58 Urine Urine Culture - Final No Growth (<1,000 CFU/ML) Most Recent Lab Values WBC 7.4 10^3/uL (4.5-11.0) D 02/04/18 06:00 RBC 4.45 10^6/uL (3.5-6.1) 02/04/18 06:00 Hgb 13.6 g/dL (12.0-16.0) 02/04/18 06:00 Hct 41.8 % (36.0-48.0) 02/04/18 06:00 MCV 93.9 fl (80.0-105.0) 02/04/18 06:00 MCH 30.6 pg (25.0-35.0) 02/04/18 06:00 MCHC 32.5 g/dl (31.0-37.0) 02/04/18 06:00 RDW 14.0 % (11.5-14.5) 02/04/18 06:00 Plt Count 169 10^3/uL (120.0-450.0) 02/04/18 06:00 MPV 11.8 fl (7.0-11.0) H 02/04/18 06:00 Gran % 76.2 % (50.0-68.0) H 02/04/18 06:00 Lymph % (Auto) 15.2 % (22.0-35.0) L 02/04/18 06:00 Saline % (Auto) 8.2 % (1.0-6.0) H 02/04/18 06:00 Eos % (Auto) 0.3 % (1.5-5.0) L 02/04/18 06:00 Baso % (Auto) 0.1 % (0.0-3.0) 02/04/18 06:00 Gran # 5.67 (1.4-6.5) 02/04/18 06:00 Lymph # (Auto) 1.1 (1.2-3.4) L 02/04/18 06:00 Saline # (Auto) 0.6 (0.1-0.6) 02/04/18 06:00 Eos # (Auto) 0.0 (0.0-0.7) 02/04/18 06:00 Baso # (Auto) 0.01 K/mm3 (0.0-2.0) 02/04/18 06:00 PT 11.9 SECONDS (9.4-12.5) 01/31/18 09:10 INR 1.03 01/31/18 09:10 APTT 29.2 Seconds (25.1-36.5) 01/30/18 19:28 Sodium 137 mmol/L (132-148) 02/04/18 06:00 Potassium 3.9 mmol/L (3.6-5.0) 02/04/18 06:00 Chloride 103 mmol/L (98-107) 02/04/18 06:00 Carbon Dioxide 25 mmol/L (21-33) 02/04/18 06:00 Anion Gap 13 (10-20) 02/04/18 06:00 BUN 4 mg/dL (7-21) L 02/04/18 06:00 Creatinine 0.5 mg/dl (0.7-1.2) L 02/04/18 06:00 Est GFR ( Amer) > 60 02/04/18 06:00 Est GFR (Non-Af Amer) > 60 02/04/18 06:00 Random Glucose 85 mg/dL (70-110) 02/04/18 06:00 Calcium 8.9 mg/dL (8.4-10.5) 02/04/18 06:00 Phosphorus 3.2 mg/dL (2.5-4.5) 02/04/18 06:00 Magnesium 1.7 mg/dL (1.7-2.2) 02/04/18 06:00 Total Bilirubin 1.5 mg/dL (0.2-1.3) H 02/04/18 06:00 Direct Bilirubin 3.4 mg/dL (0.0-0.4) H 01/30/18 19:28 AST 211 U/L (14-36) H D 02/04/18 06:00 ALT 168 U/L (7-56) H 02/04/18 06:00 Alkaline Phosphatase 125 U/L (38-126) 02/04/18 06:00 Total Protein 6.5 g/dL (5.8-8.3) 02/04/18 06:00 Albumin 3.5 g/dL (3.0-4.8) 02/04/18 06:00 Globulin 3.0 gm/dL 02/04/18 06:00 Albumin/Globulin Ratio 1.2 (1.1-1.8) 02/04/18 06:00 Triglycerides 112 mg/dL (35-160) 01/31/18 07:39 Cholesterol 149 mg/dL (130-200) 01/31/18 07:39 LDL Cholesterol Direct 92 mg/dL (0-129) 01/31/18 07:39 HDL Cholesterol 36 mg/dL (29-60) 01/31/18 07:39 Amylase 78 U/L (35-125) 02/02/18 06:30 Lipase 179 U/L (23-300) 02/02/18 06:30 Urine Color Yellow (YELLOW) 01/30/18 21:58 Urine Appearance Clear (CLEAR) 01/30/18 21:58 Urine pH 7.0 (4.7-8.0) 01/30/18 21:58 Ur Specific Yale <= 1.005 (1.005-1.035) 01/30/18 21:58 Urine Protein Negative mg/dL (<30 mg/dL) 01/30/18 21:58 Urine Glucose (UA) Negative mg/dL (NEGATIVE) 01/30/18 21:58 Urine Ketones 15 mg/dL (NEGATIVE) H 01/30/18 21:58 Urine Blood Negative (NEGATIVE) 01/30/18 21:58 Urine Nitrate Negative (NEGATIVE) 01/30/18 21:58 Urine Bilirubin Small (NEGATIVE) H 01/30/18 21:58 Urine Urobilinogen 0.2 E.U./dL (<1 E.U./dL) 01/30/18 21:58 Ur Leukocyte Esterase Negative Jihan/uL (NEGATIVE) 01/30/18 21:58 Urine Opiates Screen Negative (NEGATIVE) 01/30/18 21:58 Urine Methadone Screen Negative (NEGATIVE) 01/30/18 21:58 Ur Barbiturates Screen Negative (NEGATIVE) 01/30/18 21:58 Ur Phencyclidine Scrn Negative (NEGATIVE) 01/30/18 21:58 Ur Amphetamines Screen Negative (NEGATIVE) 01/30/18 21:58 U Benzodiazepines Scrn Negative (NEGATIVE) 01/30/18 21:58 U Oth Cocaine Metabols Negative (NEGATIVE) 01/30/18 21:58 U Cannabinoids Screen Negative (NEGATIVE) 01/30/18 21:58 Alcohol, Quantitative < 10 mg/dL (0-10) 01/30/18 19:28 Hepatitis A IgM Ab Negative (NEGATIVE) 01/31/18 09:10 Hep Bs Antigen Negative (NEGATIVE) 01/31/18 09:10 Hep B Core IgM Ab Negative (NEGATIVE) 01/31/18 09:10 Hepatitis C Antibody Negative (NEGATIVE) 01/31/18 09:10 Blood Type AB POSITIVE 02/02/18 06:30 Blood Type Confirm AB POSITIVE 02/02/18 07:45 Antibody Screen Negative 02/02/18 06:30 BBK History Checked No verified bt 02/02/18 06:30 - Hospital Course Hospital Course: Jasen De Santiago DO PGY1 Internal Medicine Web Site Administrator - Medicine DC Summary 52F w/ PMH PULuis [place] [facility] [place] w/ c/o RUQ abd pain which started a day before thanksgi. She states that for the last couple of days the episodes have become continuous and the pain has become more intense. She states that the pain is worsened with food and that her last meal was on tuesday about 5 days ago, which she had vomited up. She states She describes the pain as RUQ pain with radiation to her back and to the epigastric region of her abdomen. She also reports that the pain is rated as a 7/10 in intensity and describes it as a cramping pain. She states that she had 3 episodes of vomiting which was non-bloody non-billious. She is currenly reporting continued abdominal pain, and nausea but is denying fevers, chills, SOB, cough, chest pain, palpitations, leg swelling, constipation, diarrhea, frequency or dysuria. U/S abd done in ED showed gallstone at the neck of the gallbladder and labs showed increased lipase and increased LFTs. Patient was subsequently admitted for workup and management of gallstone pancreatitis, w/ transaminitis. General surgery and GI consulted. MRCP performed 02/01 shows evidence of gallstones with dilation of the CBD at 9mm. Following MRCP, ERCP with sphincterotomy and balloon extraction of stones/sludge from CBD; Biliary stent placed during procedure as well. Patient underwent Lap Bhavya on 02/03. Post-op patient had decreased complaints of abdominal pain; was tolerating diet well; and did not have any fevers or leukocytosis. Her LFTs however did show a mild increase in values from day prior. From a surgical standpoint patient was clear for discharge on 02/04; From a GI standpoint it was recommneded patient follow up w/ Dr. Rosario 2 days post discharge (Tuesday 02/06) for repeat lab workup. GI also stressed that patient will require follow up for removal biliary stent. Medications were reviewed, follow up planning reviewed, and discharge instructions were reviewed with patient, and she was subsequently discharged home on 02/04. Discharge Exam - Head Exam Head Exam: ATRAUMATIC, NORMOCEPHALIC - Eye Exam Eye Exam: EOMI, PERRL - ENT Exam ENT Exam: Mucous Membranes Moist - Respiratory Exam Respiratory Exam: Clear to PA & Lateral, NORMAL BREATHING PATTERN, UNREMARKABLE - GI/Abdominal Exam GI & Abdominal Exam: Normal Bowel Sounds, Tenderness, Unremarkable - Extremities Exam Extremities exam: pedal pulses present - Neurological Exam Neurological exam: Alert, CN II-XII Intact, Normal Gait, Oriented x3 - Psychiatric Exam Psychiatric exam: Normal Affect, Normal Mood - Skin Skin Exam: Dry, Intact, Normal Color, Warm Discharge Plan - Discharge Medications Prescriptions: Docusate Sodium [Colace] 100 mg PO DAILY PRN #30 capsule PRN Reason: Constipation RX: traMADol [Ultram] 50 mg PO Q8H #9 tab RX: Ursodiol [Actigall] 300 mg PO TID 7 Days #21 capsule - Follow Up Plan Condition: STABLE Disposition: HOME/ ROUTINE Instructions: Gallstones, Pancreatitis (DC) Additional Instructions: Please follow up with your primary care doctor within 3-5 days of discharge. Please follow up with Dr. Michelle Rosario (GI Doctor) in clinic THIS Tuesday02/06/[address], [address] [address] Recommend LOW FAT diet. Please follow up with Dr. Mata (surgeon) within 1 week of discharge. please do not remove operative dressings for 5 days after procedure Steri strips over incisions will fall off on their own please do not pick/remove please do not get dressings wet please do not soak in a tub, hottub or pool for 2 weeks following the procedure Please start taking the following medications: Please get any refills needed from your primary care doctor or specialist. Ursodiol 300mg three times a day Colace 100mg Daily as needed for constipation. Tramadol 50mg every 8 hours as needed three times a day for SEVERE PAIN THIS IS A NARCOTIC MEDICATION, PLEASE DO NOT DRIVE OR OPERATE HEAVY MACHINERY WHILE TAKING THIS MEDICATION Please continue taking all medications as previously prescribed If you begin having worsening abdominal pain, or fevers, please go to the nearest emergency department immediately If new or worsening symptoms arise please go to the nearest emergency department immediately Referrals: Jayme Rosario MD [Primary Care Provider] - Michelle Rosario MD [Medical Doctor] - 2 Week (Follow up for CBD stent removal) Kvng Mata MD [Medical Doctor] - <Ginger De Santiago - Last Filed: 02/09/18 18:59> Provider - Provider Date of Admission: 01/30/18 21:00 Attending physician: Ginger De Santiago DO Primary care physician: Fabian Rosario MD Consults: 01/30/18 21:36 Gastroenterology Consult Stat Comment: Consulting Provider: Michelle Rosario V Consulting Physician: Michelle Rosario V Reason for Consult: gallstone pancreatitis 01/30/18 21:44 General Surgery Consult Stat Comment: Consulting Provider: Kvng Mata Consulting Physician: Kvng Mata Reason for Consult: pancreatitis 01/31/18 01:11 Inpatient STATE APPELLATE CLERK Core Measures Referral Routine Comment: Physician Instructions: Reason For Exam: met criteria Transition In Care/Readmission Reduction Routine Comment: Physician Instructions: Reason For Exam: met criteria Hospital Course - Lab Results Lab Results: Micro Results 01/30/18 22:30 Blood-Venous Blood Culture - Final NO GROWTH AFTER 5 DAYS 01/30/18 22:30 Blood-Venous Gram Stain - Final TEST NOT PERFORMED 01/30/18 23:00 Blood-Venous Blood Culture - Final NO GROWTH AFTER 5 DAYS 01/30/18 23:00 Blood-Venous Gram Stain - Final TEST NOT PERFORMED 01/30/18 21:58 Urine Urine Culture - Final No Growth (<1,000 CFU/ML) Most Recent Lab Values WBC 7.4 10^3/uL (4.5-11.0) D 02/04/18 06:00 RBC 4.45 10^6/uL (3.5-6.1) 02/04/18 06:00 Hgb 13.6 g/dL (12.0-16.0) 02/04/18 06:00 Hct 41.8 % (36.0-48.0) 02/04/18 06:00 MCV 93.9 fl (80.0-105.0) 02/04/18 06:00 MCH 30.6 pg (25.0-35.0) 02/04/18 06:00 MCHC 32.5 g/dl (31.0-37.0) 02/04/18 06:00 RDW 14.0 % (11.5-14.5) 02/04/18 06:00 Plt Count 169 10^3/uL (120.0-450.0) 02/04/18 06:00 MPV 11.8 fl (7.0-11.0) H 02/04/18 06:00 Gran % 76.2 % (50.0-68.0) H 02/04/18 06:00 Lymph % (Auto) 15.2 % (22.0-35.0) L 02/04/18 06:00 Saline % (Auto) 8.2 % (1.0-6.0) H 02/04/18 06:00 Eos % (Auto) 0.3 % (1.5-5.0) L 02/04/18 06:00 Baso % (Auto) 0.1 % (0.0-3.0) 02/04/18 06:00 Gran # 5.67 (1.4-6.5) 02/04/18 06:00 Lymph # (Auto) 1.1 (1.2-3.4) L 02/04/18 06:00 Saline # (Auto) 0.6 (0.1-0.6) 02/04/18 06:00 Eos # (Auto) 0.0 (0.0-0.7) 02/04/18 06:00 Baso # (Auto) 0.01 K/mm3 (0.0-2.0) 02/04/18 06:00 PT 11.9 SECONDS (9.4-12.5) 01/31/18 09:10 INR 1.03 01/31/18 09:10 APTT 29.2 Seconds (25.1-36.5) 01/30/18 19:28 Sodium 137 mmol/L (132-148) 02/04/18 06:00 Potassium 3.9 mmol/L (3.6-5.0) 02/04/18 06:00 Chloride 103 mmol/L (98-107) 02/04/18 06:00 Carbon Dioxide 25 mmol/L (21-33) 02/04/18 06:00 Anion Gap 13 (10-20) 02/04/18 06:00 BUN 4 mg/dL (7-21) L 02/04/18 06:00 Creatinine 0.5 mg/dl (0.7-1.2) L 02/04/18 06:00 Est GFR ( Amer) > 60 02/04/18 06:00 Est GFR (Non-Af Amer) > 60 02/04/18 06:00 POC Glucose (mg/dL) 118 mg/dL (65-110) H 02/04/18 11:29 Random Glucose 85 mg/dL (70-110) 02/04/18 06:00 Calcium 8.9 mg/dL (8.4-10.5) 02/04/18 06:00 Phosphorus 3.2 mg/dL (2.5-4.5) 02/04/18 06:00 Magnesium 1.7 mg/dL (1.7-2.2) 02/04/18 06:00 Total Bilirubin 1.5 mg/dL (0.2-1.3) H 02/04/18 06:00 Direct Bilirubin 3.4 mg/dL (0.0-0.4) H 01/30/18 19:28 AST 211 U/L (14-36) H D 02/04/18 06:00 ALT 168 U/L (7-56) H 02/04/18 06:00 Alkaline Phosphatase 125 U/L (38-126) 02/04/18 06:00 Total Protein 6.5 g/dL (5.8-8.3) 02/04/18 06:00 Albumin 3.5 g/dL (3.0-4.8) 02/04/18 06:00 Globulin 3.0 gm/dL 02/04/18 06:00 Albumin/Globulin Ratio 1.2 (1.1-1.8) 02/04/18 06:00 Triglycerides 112 mg/dL (35-160) 01/31/18 07:39 Cholesterol 149 mg/dL (130-200) 01/31/18 07:39 LDL Cholesterol Direct 92 mg/dL (0-129) 01/31/18 07:39 HDL Cholesterol 36 mg/dL (29-60) 01/31/18 07:39 Amylase 78 U/L (35-125) 02/02/18 06:30 Lipase 179 U/L (23-300) 02/02/18 06:30 Urine Color Yellow (YELLOW) 01/30/18 21:58 Urine Appearance Clear (CLEAR) 01/30/18 21:58 Urine pH 7.0 (4.7-8.0) 01/30/18 21:58 Ur Specific Yale <= 1.005 (1.005-1.035) 01/30/18 21:58 Urine Protein Negative mg/dL (<30 mg/dL) 01/30/18 21:58 Urine Glucose (UA) Negative mg/dL (NEGATIVE) 01/30/18 21:58 Urine Ketones 15 mg/dL (NEGATIVE) H 01/30/18 21:58 Urine Blood Negative (NEGATIVE) 01/30/18 21:58 Urine Nitrate Negative (NEGATIVE) 01/30/18 21:58 Urine Bilirubin Small (NEGATIVE) H 01/30/18 21:58 Urine Urobilinogen 0.2 E.U./dL (<1 E.U./dL) 01/30/18 21:58 Ur Leukocyte Esterase Negative Jihan/uL (NEGATIVE) 01/30/18 21:58 Urine Opiates Screen Negative (NEGATIVE) 01/30/18 21:58 Urine Methadone Screen Negative (NEGATIVE) 01/30/18 21:58 Ur Barbiturates Screen Negative (NEGATIVE) 01/30/18 21:58 Ur Phencyclidine Scrn Negative (NEGATIVE) 01/30/18 21:58 Ur Amphetamines Screen Negative (NEGATIVE) 01/30/18 21:58 U Benzodiazepines Scrn Negative (NEGATIVE) 01/30/18 21:58 U Oth Cocaine Metabols Negative (NEGATIVE) 01/30/18 21:58 U Cannabinoids Screen Negative (NEGATIVE) 01/30/18 21:58 Alcohol, Quantitative < 10 mg/dL (0-10) 01/30/18 19:28 Hepatitis A IgM Ab Negative (NEGATIVE) 01/31/18 09:10 Hep Bs Antigen Negative (NEGATIVE) 01/31/18 09:10 Hep B Core IgM Ab Negative (NEGATIVE) 01/31/18 09:10 Hepatitis C Antibody Negative (NEGATIVE) 01/31/18 09:10 Blood Type AB POSITIVE 02/02/18 06:30 Blood Type Confirm AB POSITIVE 02/02/18 07:45 Antibody Screen Negative 02/02/18 06:30 BBK History Checked No verified bt 02/02/18 06:30 Attending/Attestation - Attestation I have personally seen and examined this patient.: Yes I have fully participated in the care of the patient.: Yes I have reviewed all pertinent clinical information, including history, physical exam and plan: Yes Notes (Text): Please note this dc summary is for 02/04/18 Patient seen and examined by me with resident 9:25 AM and prior to discharge on 02/04/18. Case including discharge plan discussed with resident. Agree with above with following additions/corrections. Patient is a 52-year-old female past medical history significant for peptic ulcer disease and diverticulosis that presented to the emergency room with intermittent right upper quadrant abdominal pain which started 01/04/2018 and has progressively gotten worse. Please see H&P for full details. Patient was admitted with pancreatitis likely secondary to gallstone, transaminitis likely secondary to gallstone obstruction, and history of peptic ulcer disease. Patient was found to have gallstone pancreatitis, choledocholithiasis, and cholelithiasis. Abdominal ultrasound per radiologist showed cholelithiasis with positive sonographic Rose's sign, no mural thickening or pericholecystic fluid, findings are equivocal for cholecystitis, there is evidence of biliary obstruction with dilatation of the common bile duct and intrahepatic bile ducts. CT abdomen and pelvis per radiologist showed extensive biliary tree dilatation identified due to multiple choledocholithiasis obstructing the mid distal common bile duct, moderate intra- and extrahepatic biliary dilatation, cholelithiasis also remains in the gallbladder lumen; small cyst versus choledochocele left love liver; limited sigmoid diverticulosis without diverticulitis; small bilateral adnexal cyst. MRCP per radiologist showed gallstones, stones or sludge in the distal common duct, mild dilatation of the common duct measuring 9 mm. Patient had ERCP 02/01/18 which showed multiple stones in distal common duct, biliary stent was placed. Patient had cholecystectomy on 02/03/2018. She had transaminitis secondary to choledocholithiasis. Hepatitis panel was negative. Photonics Technician was following. LFTs did trend status post cholecystectomy which was expected. Per die casting machine setter, patient to follow up outpatient for repeat lab work. Patient was continued on Protonix for history of peptic ulcer disease. Patient did have episodes of hypokalemia which resolved with replacement. She was counseled on cessation for tobacco abuse and was continued on NicoDerm patch while in the hospital. Patient remained afebrile. Blood and urine cultures were negative. Patient had episodes of leukopenia which resolved on discharge. Patient was feeling much better and wanted to go home. Patient was eating and able to ambulate. Patient was also having flatus. Case was discussed with both surgeon and die casting machine setter. Patient was cleared for discharge by both surgical and GI team. Patient was discharged home. On day of discharge, patient stated she was feeling much better. Patient with some generalized tenderness post surgery. Patient is tolerating diet and having flatus. Patient also ambulating. Cleared for discharge by both surgical and GI team, discussed with both consultants. Patient denies any shortness of breath or palpitations. No nausea or vomiting. No hedache or dizziness. No change in vision or light headedness. No fevers or chills. No palpitations. No dysuria. No diarrhea or constipation. Physical exam: General: Awake and alert lying in bed in no acute distress HEENT: Normocephalic, atraumatic. Extraocular muscles intact, pupils equal and reactive, no scleral icterus. Oropharynx is pink moist. Neck is supple. Cardiovascular: Regular rhythm. Normal S1 and S2. No murmurs, rubs, or gallops appreciated Pulmonary: Normal respiratory effort. No rhonchi, rales, or wheezing appreciated Gastrointestinal: Soft, mildly distended. Positive generalized tenderness. Incision site dressings clean, dry, and intact. Positive bowel sounds all 4 quadrants. No guarding. Musculoskeletal: Moves all extremities. No calf tenderness. No edema appreciated. Central nervous system: AAO x 3, CN2-12 grossly intact Dermatologic: Skin warm and dry. Please see chart for full details. Follow up instructions: Patient to follow-up with primary care doctor within 3-5 days of discharge. Patient to follow-up with her die casting machine setter on 02/06/2018. Low-fat diet recommended. Patient to follow-up with surgeon within 1 week of discharge. Patient was started on Urosodiol per GI and colace per surgical team. Care instructions of surgical sites given to patient. All instructions explained to the patient in detail. Patient both understands and agrees to all instructions. Written instructions also given. Time spent in discharging the patient including chart review, medication reconciliation, discussion with the patient, medical scientist, consultants, and nursing staff was approximately 40 minutes.
--- NOTE | 2018-02-06 03:01 | OP ---
PROCEDURE DATE: 02/03/2018 PREOPERATIVE DIAGNOSES: 1. Gallstone pancreatitis. 2. Choledocholithiasis, status post endoscopic retrograde cholangiopancreatography. 3. Chronic cholecystitis. POSTOPERATIVE DIAGNOSES: 1. Gallstone pancreatitis. 2. Choledocholithiasis, status post endoscopic retrograde cholangiopancreatography. 3. Chronic cholecystitis. PROCEDURES DONE: 1. Laparoscopic cholecystectomy. 2. Laparoscopic extensive adhesiolysis due to chronic cholecystitis. SURGEON: Kvng Mata MD CORPORATE COMMUNICATIONS ASSOCIATE: Danny Kumari DO, PGY-3 resident and Fatmata Rangel DO. ANESTHESIA: General endotracheal tube anesthesia. ESTIMATED BLOOD LOSS: Around 20 mL. DRAINS: None. PATHOLOGY: Gallbladder with gallstone was sent to the pathology. COMPLICATIONS: None. INTRAOPERATIVE FINDINGS: The patient had extremely thickened gallbladder with chronic adhesion of the Calot's triangle with extremely dilated cystic duct, and due to the tortuous elongated course of the cystic duct as well as chronic extensive adhesion, it took approximately 40- to 60-minute extra for the routine procedure. DESCRIPTION OF PROCEDURE: On intraoperative steps, this 52-year-old female was diagnosed with choledocholithiasis and cholelithiasis, and the patient is status post ERCP, and after resolution of the pancreatitis, the patient was consented for the laparoscopic cholecystectomy, possible open, brought to the OR, placed supine on the operating table. After induction of the anesthesia, the abdomen was prepped and draped in the usual sterile fashion. Supraumbilical transverse incision was made using the Js technique. Peritoneal cavity was entered. Pneumo was created. A 12 mm port was placed in the midline below costal margin, and two 5 mm port was placed in the mid clavicular and anterior axillary line. Grasper and dissector was introduced. Gallbladder was retracted cranially. Calot's triangle dissection was done. The patient was found to have a tortuous, thickened, edematous gallbladder with large cystic duct, and the patient had extensive chronic adhesion in the Calot's triangle. The Calot's triangle dissection was done. Now, the top-down approach was done. The critical view of the safety was also identified. Now, the more top-down approach was done, and cystic duct was completely isolated and divided. Due to the large size of the cystic duct, common bile duct junction was dissected and identified, and the cystic duct was stapled with EndoGIA, and the gallbladder was taken in EndoCatch bag, taken out through the umbilical port site, and sent off the table for the pathology. Proper hemostasis was achieved. The staple line appeared to be normal, and after hemostasis, the suction irrigation of the gallbladder fossa as well as perihepatic area was done. All the ports were taken out under vision. Pneumo was deflated. The umbilical port site was closed in two layers. The fascia of the 0 Vicryl interrupted suture, skin with 4-0 Monocryl, and sterile dressing was applied. The patient tolerated the procedure well. Count of the instrument was correct. There was no apparent complication. The patient was extubated in the OR, sent to the postanesthesia care unit in stable condition. Kvng Mata MD MTDD
== END 2018-02-04 15:07 | disposition home or self-care (01) | DRG 417 ==
LOC: ED 17:40 → ERH 21:00 → 5RSO 01-31 00:43
PROVIDERS: ADMIT Hospitalist; ATTEND Hospitalist
PROC: BF40ZZZ Ultrasonography of Bile Ducts (ICD-10-PCS; 2018-02-01)
PROC: 0FC98ZZ Extirpation of Matter from Common Bile Duct, Via Natural or Artificial Opening Endoscopic (ICD-10-PCS; 2018-02-01 15:30)
PROC: 0F798DZ Dilation of Common Bile Duct with Intraluminal Device, Via Natural or Artificial Opening Endoscopic (ICD-10-PCS; 2018-02-01 15:30)
PROC: 0DJ08ZZ Inspection of Upper Intestinal Tract, Via Natural or Artificial Opening Endoscopic (ICD-10-PCS; 2018-02-01 15:30)
PROC: 0DNW4ZZ Release Peritoneum, Percutaneous Endoscopic Approach (ICD-10-PCS; 2018-02-03)
PROC: 0FT44ZZ Resection of Gallbladder, Percutaneous Endoscopic Approach (ICD-10-PCS; principal; 2018-02-03 13:30)
DX: K80.66 Calculus of gallbladder and bile duct with acute and chronic cholecystitis without obstruction (principal); K85.10 Biliary acute pancreatitis without necrosis or infection; K66.0 Peritoneal adhesions (postprocedural) (postinfection); F17.210 Nicotine dependence, cigarettes, uncomplicated; E87.6 Hypokalemia; K76.0 Fatty (change of) liver, not elsewhere classified

== ENCOUNTER 2018-02-20 12:43 | Day surgery (SDC) | payer OTHER ==
[2018-02-20 12:56] VITALS: BMI 29.4
[2018-02-20] MEDS ORDERED: Sodium Chloride 0.9% 1,000 ML IV STA (12:59)
--- NOTE | 2018-02-20 13:05 | ED PDOC ---
Arrival/HPI - General Historian: Patient - History of Present Illness Time/Duration: Prior to Arrival Symptom Course: Unchanged Severity Level: Mild Activities at Onset: Rest Associated Symptoms (Text): 02/20/18 13:03 Patient complains of mild right upper quadrant abdominal pain. She is scheduled for endoscopy this afternoon for an ERCP to have a biliary stent removed. She had a cholecystectomy laparoscopically on February 03. Prior to that she had choledocholithiasis and a biliary stent placed. Mild nausea but no vomiting. No diarrhea. No fever or chills. She is scheduled for endoscopy this afternoon at 2 PM. She's been nothing by mouth since last night. No fever or chills. No back pain. No chest pain palpitations or dyspnea. Past Medical History - Infectious Disease Hx of Infectious Diseases: None - Tetanus Immunization Tetanus Immunization: Unknown - Past Medical History Past Medical History: No Previous - Cardiac Hx Pacemaker: No - Pulmonary Hx Chronic Obstructive Pulmonary Disease (COPD): Yes - Neurological Hx Paralysis: No - Hematological/Oncological Hx Blood Transfusions: No - Musculoskeletal/Rheumatological Hx Musculoskeletal Disorders: No - Gastrointestinal Other/Comment: SBO - Psychiatric Hx Emotional Abuse: No Hx Physical Abuse: No Hx Substance Use: No - Past Surgical History Past Surgical History: No Previous - Anesthesia Hx Anesthesia: Yes Hx Anesthesia Reactions: Yes (VOMITING,DIZZINESS) Hx Malignant Hyperthermia: No - Suicidal Assessment Feels Threatened In Home Enviroment: No Family/Social History - Physician Review Nursing Documentation Reviewed: Yes Family/Social History: Unknown Family HX Smoking Status: Heavy Smoker > 10 Cigarettes Daily Hx Alcohol Use: No Hx Substance Use: No Hx Substance Use Treatment: No Allergies/Home Meds Allergies/Adverse Reactions: Allergies No Known Allergies Allergy (Verified 01/30/18 17:55) Home Medications: Home Meds Medication Instructions Recorded Confirmed Omeprazole 20 mg PO DAILY 02/20/18 02/20/18 Review of Systems - Physician Review All systems were reviewed & negative as marked: Yes - Review of Systems Constitutional: absent: Fatigue, Fevers Respiratory: Normal Cardiovascular: Normal Gastrointestinal: Abdominal Pain, Nausea. absent: Constipation, Diarrhea, Vomiting, Anorexia Genitourinary Female: absent: Dysuria, Frequency, Hematuria Neurological: absent: Headache, Dizziness Physical Exam Vital Signs Temp Pulse Resp BP Pulse Ox 02/20/18 12:56 97.5 F L 96 H 18 125/84 99 Temperature: Afebrile Blood Pressure: Normal Pulse: Regular Respiratory Rate: Normal Appearance: Positive for: Well-Appearing, Non-Toxic, Comfortable Pain Distress: None Mental Status: Positive for: Alert and Oriented X 3 - Systems Exam Head: Present: Atraumatic, Normocephalic Pupils: Present: PERRL Extroacular Muscles: Present: EOMI Conjunctiva: Present: Normal Mouth: Present: Moist Mucous Membranes Pharnyx: No: ERYTHEMA, EXUDATE, TONSILS ENLARGED Neck: Present: Normal Range of Motion Respiratory/Chest: Present: Clear to Auscultation, Good Air Exchange. No: Respiratory Distress, Accessory Muscle Use Cardiovascular: Present: Regular Rate and Rhythm, Normal S1, S2. No: Murmurs Abdomen: Present: Tenderness (Plus minus right upper quadrant tenderness), Normal Bowel Sounds. No: Distention, Peritoneal Signs, Rebound, Guarding Back: Present: Normal Inspection. No: CVA Tenderness Upper Extremity: Present: Normal Inspection. No: Cyanosis, Edema Lower Extremity: Present: Normal Inspection. No: Edema Neurological: Present: GCS=15, CN II-XII Intact, Speech Normal, Motor Func Grossly Intact Skin: Present: Warm, Dry, Normal Color. No: Rashes Psychiatric: Present: Alert, Oriented x 3, Normal Insight, Normal Concentration Medical Decision Making ED Course and Treatment: 02/20/18 13:09 EKG shows normal sinus rhythm rate approximately [address] or T-wave changes. - Medication Orders Current Medication Orders: Sodium Chloride (Sodium Chloride 0.9%) 1,000 mls @ 1,000 mls/hr IV .Q1H STA Stop: 02/20/18 13:58 Disposition/Present on Arrival - Present on Arrival Any Indicators Present on Arrival: No History of DVT/PE: No History of Uncontrolled Diabetes: No Urinary Catheter: No History of Decub. Ulcer: No History Surgical Site Infection Following: None - Disposition Have Diagnosis and Disposition been Completed?: Yes Diagnosis: Choledocholithiasis with acute cholecystitis, Right upper quadrant abdominal pain Disposition: HOSPITALIZED Disposition Time: 14:01 Patient Plan: Observation Patient Problems: Current Active Problems Problem Status Onset Choledocholithiasis with acute cholecystitis Acute Condition: GOOD
[2018-02-20 14:10] LABS: BASO # 0.04 K/mm3 (0.0-2.0); BASO % 0.9 % (0.0-3.0); EOS # 0.1 (0.0-0.7); EOS % 1.5 % (1.5-5.0); GRAN # 2.07 (1.4-6.5); GRAN % 44.5 % (50.0-68.0); HEMOGLOBIN 14.6 g/dL (12.0-16.0); MEAN CELL VOLUME 94.4 fl (80.0-105.0); MEAN CORPUSCULAR HEMOGLOBIN 31.2 pg (25.0-35.0); MEAN PLATELET VOLUME 11.5 fl (7.0-11.0); MONO # 0.4 (0.1-0.6); MONO % 9.1 % (1.0-6.0); RBC 4.68 10^6/uL (3.5-6.1); RED CELL DISTRIBUTION WIDTH 13.2 % (11.5-14.5); WHITE BLOOD COUNT 4.6 10^3/uL (4.5-11.0)
[2018-02-20] MEDS ORDERED: Iohexol 240 (50 ml) ONE (14:21)
[2018-02-20] MEDS ORDERED: Indomethacin 50 MG Suppository PR ONE (14:23)
[2018-02-20 14:24] LABS: INR 1.02; PARTIAL THROMBOPLASTIN TIME 28.3 Seconds (25.1-36.5); PROTHROMBIN TIME 11.6 SECONDS (9.4-12.5)
[2018-02-20 14:25] LABS: ALB/GLOB RATIO 1.3 (1.1-1.8); ALBUMIN 3.8 g/dL (3.0-4.8); ALT/SGPT 31 U/L (7-56); AST/SGOT 22 U/L (14-36); BLOOD UREA NITROGEN 4 mg/dL (7-21); CALCIUM 9.2 mg/dL (8.4-10.5); GFR NON-AFRICAN AMERICAN > 60; LIPASE 167 U/L (23-300)
[2018-02-20] MEDS ORDERED: Sodium Chloride 0.9% 1,000 ML IV SCH ×2 (15:15→18:00)
--- NOTE | 2018-02-20 15:23 | CP.PCM.CON ---
<Ramiro Deluna - Last Filed: 02/20/18 18:57> History of Present Illness - History of Present Illness History of Present Illness: Ramiro Deluna DO,PGY1. GI consult note for Dr Abraham Alfonso: Abdominal pain 52 y/o female with PMH of choledocholithiasis s/p ERCP with biliary stent placed 02/01/18 , PUD, diverticulosis presented to the ED with crampy RUQ abdominal pain, intermittent, no alleviating or worsening factors and associated with nausea. Patient was scheduled to come this afternoon for ERCP for stent removal but because her abdominal pain was getting worse, she came to ED. Patient denies fevers, chills, constipation, diarrhea, hematemesis, blood per rectum, SOB, cough, chest pain, palpitations, leg swelling, frequency, urgency, dysuria. PMH: choledocholithiasis, PUD, Diverticulosis Pshx: lap cholecystectomy Meds: Omperazole, Ursodiol, colace All: NKDA Social: 1 ppd x 37 years, denies etoh or illicit drug use Fam: Dad: DM, Mom: Lung ca, Brother; DM PMD: Dr. Vega Past Patient History - Infectious Disease Hx of Infectious Diseases: None - Tetanus Immunizations Tetanus Immunization: Unknown - Past Social History Smoking Status: Heavy Smoker > 10 Cigarettes Daily - CARDIAC Hx Pacemaker: No - PULMONARY Hx Chronic Obstructive Pulmonary Disease (COPD): Yes - NEUROLOGICAL Hx Paralysis: No - HEMATOLOGICAL/ONCOLOGICAL Hx Blood Transfusions: No - MUSCULOSKELETAL/RHEUMATOLOGICAL Hx Musculoskeletal Disorders: No - GASTROINTESTINAL Other/Comment: SBO - PSYCHIATRIC Hx Emotional Abuse: No Hx Physical Abuse: No Hx Substance Use: No - SURGICAL HISTORY Hx Surgeries: Yes - ANESTHESIA Hx Anesthesia: Yes Hx Anesthesia Reactions: Yes (VOMITING,DIZZINESS) Hx Malignant Hyperthermia: No Meds Allergies/Adverse Reactions: Allergies Allergy/AdvReac Type Severity Reaction Status Date / Time No Known Allergies Allergy Verified 01/30/18 17:55 Physical Exam - Constitutional Appears: Well, No Acute Distress - Head Exam Head Exam: ATRAUMATIC, NORMAL INSPECTION, NORMOCEPHALIC - Eye Exam Eye Exam: EOMI, Normal appearance, PERRL Pupil Exam: NORMAL ACCOMODATION, PERRL - ENT Exam ENT Exam: Mucous Membranes Moist, Normal Exam - Neck Exam Neck exam: Positive for: Normal Inspection - Respiratory Exam Respiratory Exam: Clear to Auscultation Bilateral, NORMAL BREATHING PATTERN. absent: Rales, Rhonchi - Cardiovascular Exam Cardiovascular Exam: REGULAR RHYTHM, +S1, +S2. absent: Gallop, Rubs - GI/Abdominal Exam GI & Abdominal Exam: Normal Bowel Sounds, Soft, Tenderness (tender to palpate RUQ). absent: Guarding, Mass, Organomegaly, Rebound - Extremities Exam Extremities exam: Positive for: normal capillary refill, normal inspection, pedal pulses present - Back Exam Back exam: NORMAL INSPECTION - Neurological Exam Neurological exam: Alert, CN II-XII Intact, Normal Gait, Oriented x3, Reflexes Normal - Psychiatric Exam Psychiatric exam: Normal Affect, Normal Mood - Skin Skin Exam: Dry, Intact, Normal Color, Warm Results - Vital Signs Recent Vital Signs: Last Vital Signs Temp 97.5 F L 02/20/18 12:56 Pulse 96 H 02/20/18 12:56 Resp 18 02/20/18 12:56 BP 125/84 02/20/18 12:56 Pulse Ox 99 02/20/18 12:56 - Labs Result Diagrams: 02/20/18 13:15 02/20/18 13:15 Labs: Laboratory Results - last 24 hr 02/20/18 02/20/18 02/20/18 13:00 13:15 13:15 WBC 4.6 D RBC 4.68 Hgb 14.6 Hct 44.2 MCV 94.4 MCH 31.2 MCHC 33.0 RDW 13.2 Plt Count 204 MPV 11.5 H Gran % 44.5 L Lymph % (Auto) 44.0 H Bertie % (Auto) 9.1 H Eos % (Auto) 1.5 Baso % (Auto) 0.9 Gran # 2.07 Lymph # (Auto) 2.0 [place]ie # (Auto) 0.4 Eos # (Auto) 0.1 Baso # (Auto) 0.04 PT 11.6 INR 1.02 APTT 28.3 Sodium Potassium Chloride Carbon Dioxide Anion Gap BUN Creatinine Est GFR ( Amer) Est GFR (Non-Af Amer) Random Glucose Calcium Magnesium Total Bilirubin GGT 26 AST ALT Alkaline Phosphatase Total Protein Albumin Globulin Albumin/Globulin Ratio Lipase 02/20/18 13:15 WBC RBC Hgb Hct MCV MCH MCHC RDW Plt Count MPV Gran % Lymph % (Auto) [place]ie % (Auto) Eos % (Auto) Baso % (Auto) Gran # Lymph # (Auto) [place] # (Auto) Eos # (Auto) Baso # (Auto) PT INR APTT Sodium 139 Potassium 3.8 Chloride 106 Carbon Dioxide 28 Anion Gap 9 L BUN 4 L Creatinine 0.6 L Est GFR ( Amer) > 60 Est GFR (Non-Af Amer) > 60 Random Glucose 89 Calcium 9.2 Magnesium 2.1 Total Bilirubin 0.6 GGT AST 22 ALT 31 Alkaline Phosphatase 89 Total Protein 6.7 Albumin 3.8 Globulin 2.9 Albumin/Globulin Ratio 1.3 Lipase 167 Assessment & Plan - Assessment and Plan (Free Text) Assessment: 52 y/o female with PMH of choledocholithiasis s/p ERCP with biliary stent placed 02/01/18 , PUD, diverticulosis presented to the ED with RUQ abdominal pain. Patient is hemodynamically stable, afebrile, no leukocytosis Plan: -abdominal XR ordered -clear liquid diet -ERCP stent removal -PT/INR, LFT, lipase WNL -PPI, zofran prn Case reviewed and plan discussed with Dr Abraham Deluna, <Michelle Rosario V - Last Filed: 02/20/18 23:01> Meds - Medications Medications: Current Medications Metoclopramide HCl (Reglan) 10 mg IV ONCE PRN PRN Reason: Nausea/Vomiting Morphine Sulfate (Morphine) 2 mg IVP Q4H PRN PRN Reason: Pain, severe (8-10) Ondansetron HCl (Zofran Inj) 4 mg IVP ONCE PRN PRN Reason: Nausea/Vomiting Pantoprazole Sodium (Protonix Ec Tab) 40 mg PO 0600 [facility] Results - Vital Signs Recent Vital Signs: Last Vital Signs Temp 98.1 F 02/20/18 19:25 Pulse 79 02/20/18 19:25 Resp 20 02/20/18 19:25 BP 144/93 H 02/20/18 19:25 Pulse Ox 95 02/20/18 19:25 - Labs Result Diagrams: 02/20/18 13:15 02/20/18 13:15 Labs: Laboratory Results - last 24 hr 02/20/18 02/20/18 02/20/18 13:00 13:15 13:15 WBC 4.6 D RBC 4.68 Hgb 14.6 Hct 44.2 MCV 94.4 MCH 31.2 MCHC 33.0 RDW 13.2 Plt Count 204 MPV 11.5 H Gran % 44.5 L Lymph % (Auto) 44.0 H [place] % (Auto) 9.1 H Eos % (Auto) 1.5 Baso % (Auto) 0.9 Gran # 2.07 Lymph # (Auto) 2.0 Bertie # (Auto) 0.4 Eos # (Auto) 0.1 Baso # (Auto) 0.04 PT 11.6 INR 1.02 APTT 28.3 Sodium Potassium Chloride Carbon Dioxide Anion Gap BUN Creatinine Est GFR ( Amer) Est GFR (Non-Af Amer) Random Glucose Calcium Magnesium Total Bilirubin GGT 26 AST ALT Alkaline Phosphatase Total Protein Albumin Globulin Albumin/Globulin Ratio Lipase 02/20/18 13:15 WBC RBC Hgb Hct MCV MCH MCHC RDW Plt Count MPV Gran % Lymph % (Auto) Bert[place] % (Auto) Eos % (Auto) Baso % (Auto) Gran # Lymph # (Auto) Bertie # (Auto) Eos # (Auto) Baso # (Auto) PT INR APTT Sodium 139 Potassium 3.8 Chloride 106 Carbon Dioxide 28 Anion Gap 9 L BUN 4 L Creatinine 0.6 L Est GFR ( Amer) > 60 Est GFR (Non-Af Amer) > 60 Random Glucose 89 Calcium 9.2 Magnesium 2.1 Total Bilirubin 0.6 GGT AST 22 ALT 31 Alkaline Phosphatase 89 Total Protein 6.7 Albumin 3.8 Globulin 2.9 Albumin/Globulin Ratio 1.3 Lipase 167 Attending/Attestation - Attestation I have personally seen and examined this patient.: Yes I have fully participated in the care of the patient.: Yes I have reviewed all pertinent clinical information: Yes Notes (Text): This is an addendum to GI consult report dictated by the GI Fellow.The patient was seen and examined earlier. Medical records, lab studies, imagings were reviewed. Last 24 hours events reviewed. Agreed with the above treatment plan as outlined in GI Fellow 's notes with the addition of the following 02/20/18 22:59
--- NOTE | 2018-02-20 15:35 | CP.PCM.HP ---
<Lance Diego - Last Filed: 02/20/18 15:28> History of Present Illness - History of Present Illness History of Present Illness: Lance Diego, PGY1 Hospital H&P This is a 52 year old female with PMH of PUD, diverticulosis and choledocholithiasis with sphincterotomy and biliary stent place on 02/01/18 presenting to the hospital for abdominal pain that began last night. Pain is located in the RUQ, began gradually, occurred at rest, rated 7/10 at worst, non radiating, sharp and denies any exacerbating or relieving factors. She admits to nausea and one episode of non bloody vomiting last night. Last meal was last night and last BM was this morning was was normal. She is scheduled for biliart stent removal today. LMP was yesterday and patient states there was no excessive bleeding. She denies CP, SOB, fevers, chills, back pain, diarrhea, constipation, melena, numbness, tingling, swelling, urinary complaints, recent travel, sickness and trauma. 12 point ROS noted here, otherwise unremarkable. PMD: Dr. Vega PMH: PUD, diverticulosis and choledocholithiasis SH: 1 ppd x for 40 years, denies drinking and drugs Sx: lap erasmo on 02/03/18 Meds: Omperazole, Ursodiol, colace All: NKDA Fam: lung cancer in father, DM Present on Admission - Present on Admission Any Indicators Present on Admission: No Past Patient History - Infectious Disease Hx of Infectious Diseases: None - Tetanus Immunizations Tetanus Immunization: Unknown - Past Social History Smoking Status: Heavy Smoker > 10 Cigarettes Daily - CARDIAC Hx Pacemaker: No - PULMONARY Hx Chronic Obstructive Pulmonary Disease (COPD): Yes - NEUROLOGICAL Hx Paralysis: No - HEMATOLOGICAL/ONCOLOGICAL Hx Blood Transfusions: No - MUSCULOSKELETAL/RHEUMATOLOGICAL Hx Musculoskeletal Disorders: No - GASTROINTESTINAL Other/Comment: SBO - PSYCHIATRIC Hx Emotional Abuse: No Hx Physical Abuse: No Hx Substance Use: No - SURGICAL HISTORY Hx Surgeries: Yes - ANESTHESIA Hx Anesthesia: Yes Hx Anesthesia Reactions: Yes (VOMITING,DIZZINESS) Hx Malignant Hyperthermia: No Meds Allergies/Adverse Reactions: Allergies Allergy/AdvReac Type Severity Reaction Status Date / Time No Known Allergies Allergy Verified 01/30/18 17:55 Physical Exam - Constitutional Appears: No Acute Distress - Head Exam Head Exam: ATRAUMATIC, NORMAL INSPECTION - Eye Exam Eye Exam: EOMI Pupil Exam: PERRL - ENT Exam ENT Exam: Mucous Membranes Moist - Neck Exam Neck exam: Positive for: Normal Inspection - Respiratory Exam Respiratory Exam: Clear to Auscultation Bilateral. absent: Accessory Muscle Use, Wheezes, Respiratory Distress - Cardiovascular Exam Cardiovascular Exam: REGULAR RHYTHM, +S1, +S2 - GI/Abdominal Exam GI & Abdominal Exam: Normal Bowel Sounds, Soft. absent: Firm, Guarding Additional comments: RUQ tenderness present to light palpation, rovsing/obturator signs are negative - Extremities Exam Extremities exam: Positive for: normal inspection, pedal pulses present. Negative for: calf tenderness, tenderness - Back Exam Back exam: absent: CVA tenderness (L), CVA tenderness (R) - Neurological Exam Neurological exam: Alert, Oriented x3 - Skin Skin Exam: Normal Color, Warm Results - Vital Signs Recent Vital Signs: Last Vital Signs Temp 97.5 F L 02/20/18 12:56 Pulse 76 02/20/18 15:10 Resp 16 02/20/18 15:10 BP 128/80 02/20/18 15:10 Pulse Ox 99 02/20/18 15:10 - Labs Result Diagrams: 02/20/18 13:15 02/20/18 13:15 Labs: Laboratory Results - last 24 hr 02/20/18 02/20/18 02/20/18 13:00 13:15 13:15 WBC 4.6 D RBC 4.68 Hgb 14.6 Hct 44.2 MCV 94.4 MCH 31.2 MCHC 33.0 RDW 13.2 Plt Count 204 MPV 11.5 H Gran % 44.5 L Lymph % (Auto) 44.0 H [place] % (Auto) 9.1 H Eos % (Auto) 1.5 Baso % (Auto) 0.9 Gran # 2.07 Lymph # (Auto) 2.0 [place] # (Auto) 0.4 Eos # (Auto) 0.1 Baso # (Auto) 0.04 PT 11.6 INR 1.02 APTT 28.3 Sodium Potassium Chloride Carbon Dioxide Anion Gap BUN Creatinine Est GFR ( Amer) Est GFR (Non-Af Amer) Random Glucose Calcium Magnesium Total Bilirubin GGT 26 AST ALT Alkaline Phosphatase Total Protein Albumin Globulin Albumin/Globulin Ratio Lipase 02/20/18 13:15 WBC RBC Hgb Hct MCV MCH MCHC RDW Plt Count MPV Gran % Lymph % (Auto) [place] % (Auto) Eos % (Auto) Baso % (Auto) Gran # Lymph # (Auto) [place] # (Auto) Eos # (Auto) Baso # (Auto) PT INR APTT Sodium 139 Potassium 3.8 Chloride 106 Carbon Dioxide 28 Anion Gap 9 L BUN 4 L Creatinine 0.6 L Est GFR ( Amer) > 60 Est GFR (Non-Af Amer) > 60 Random Glucose 89 Calcium 9.2 Magnesium 2.1 Total Bilirubin 0.6 GGT AST 22 ALT 31 Alkaline Phosphatase 89 Total Protein 6.7 Albumin 3.8 Globulin 2.9 Albumin/Globulin Ratio 1.3 Lipase 167 Assessment & Plan - Assessment and Plan (Free Text) Assessment: This is a 52 year old female with PMH of PUD, diverticulosis and choledocholithiasis with sphincterotomy and biliary stent place on 02/01/18 presenting to the hospital for abdominal pain that began last night. Plan: Abdominal pain -unclear etiology -unlikely infectious as afebrile, no WBC, no tachycardia -unlikely obstruction as LFT's and alk phos WNL -ERCP today to remove biliary stent -advance diet as tolerated -morphine prn -abd xray pending -GI on consult - Dr. Abraham Gan of GERD -continue PPI PPX/Diet -protonix, SCD -full liquid diet today, HHD tomorrow as tolerated Patient seen and case discussed with attending, Dr. Michael <Joby Michael - Last Filed: 02/21/18 15:58> Results - Vital Signs Recent Vital Signs: Last Vital Signs Temp 98.1 F 02/20/18 19:25 Pulse 79 02/20/18 19:25 Resp 20 02/20/18 19:25 BP 144/93 H 02/20/18 19:25 Pulse Ox 95 02/20/18 19:25 - Labs Result Diagrams: 02/21/18 05:30 02/21/18 05:30 Labs: Laboratory Results - last 24 hr 02/21/18 02/21/18 05:30 05:30 WBC 4.5 RBC 4.19 Hgb 12.9 Hct 39.8 MCV 95.0 MCH 30.8 MCHC 32.4 RDW 13.1 Plt Count 181 MPV 11.6 H Gran % 40.8 L Lymph % (Auto) 49.9 H [place] % (Auto) 7.1 H Eos % (Auto) 1.8 Baso % (Auto) 0.4 Gran # 1.85 Lymph # (Auto) 2.3 [place] # (Auto) 0.3 Eos # (Auto) 0.1 Baso # (Auto) 0.02 Sodium 139 Potassium 4.0 Chloride 111 H Carbon Dioxide 27 Anion Gap 5 L BUN 4 L Creatinine 0.6 L Est GFR ( Amer) > 60 Est GFR (Non-Af Amer) > 60 Random Glucose 83 Calcium 8.6 Phosphorus 3.3 Magnesium 2.0 Total Bilirubin 0.4 AST 21 ALT 29 Alkaline Phosphatase 77 Total Protein 5.5 L Albumin 3.0 Globulin 2.6 Albumin/Globulin Ratio 1.2 Attending/Attestation - Attestation I have personally seen and examined this patient.: Yes I have fully participated in the care of the patient.: Yes I have reviewed all pertinent clinical information: Yes Notes (Text): 02/21/18 15:57 Medical record note made by the resident after discussion with my direction and input after the patient was personally seen and examined by me. I have reviewed the chart and agree that the record accurately reflects by personal performance of the history, physical exam, data review, and medical decision-making, in the course for the patient. I have also personally directed the plan of care.
[2018-02-20] MEDS ORDERED: Morphine 2 mg/ml ISec IVP PRN (15:41)
[2018-02-20] MEDS ORDERED: Propofol 10 mg/ml Inj (20 ML) ONE (16:43)
[2018-02-20] MEDS ORDERED: Midazolam 2 MG/2 ML VIAL ONE (16:43)
[2018-02-20] MEDS ORDERED: Succinylcholine 200 mg/10 ml Inj IV ONE (16:44)
--- NOTE | 2018-02-20 18:10 | CARD ---
APPROVED REPORT Date of service: 02/20/2018 EKG Measurement Heart [id number] <Conclusion> Normal sinus rhythm Normal ECG
[2018-02-20 19:25] VITALS: BP 144/93; PULSE 79; RESP 20; TEMP 98.1; O2SAT 95
[2018-02-21] MEDS ORDERED: Pantoprazole 40 mg EC Tab PO SCH (06:00)
[2018-02-21 06:45] LABS: BASO # 0.02 K/mm3 (0.0-2.0); BASO % 0.4 % (0.0-3.0); EOS # 0.1 (0.0-0.7); EOS % 1.8 % (1.5-5.0); GRAN # 1.85 (1.4-6.5); GRAN % 40.8 % (50.0-68.0); HEMOGLOBIN 12.9 g/dL (12.0-16.0); LYMPH # 2.3 (1.2-3.4); LYMPH % 49.9 % (22.0-35.0); MEAN CORPUSCULAR HEMOGLOBIN 30.8 pg (25.0-35.0); MEAN CORPUSCULAR HGB CONC 32.4 g/dl (31.0-37.0); MEAN PLATELET VOLUME 11.6 fl (7.0-11.0); MONO # 0.3 (0.1-0.6); MONO % 7.1 % (1.0-6.0); RBC 4.19 10^6/uL (3.5-6.1); RED CELL DISTRIBUTION WIDTH 13.1 % (11.5-14.5); WHITE BLOOD COUNT 4.5 10^3/uL (4.5-11.0)
[2018-02-21 07:22] LABS: ALB/GLOB RATIO 1.2 (1.1-1.8); ALT/SGPT 29 U/L (7-56); AST/SGOT 21 U/L (14-36); BLOOD UREA NITROGEN 4 mg/dL (7-21); CALCIUM 8.6 mg/dL (8.4-10.5); GFR NON-AFRICAN AMERICAN > 60
--- NOTE | 2018-02-21 09:45 | CP.PCM.PN ---
Subjective - Date & Time of Evaluation Date of Evaluation: 02/21/18 Time of Evaluation: 07:10 - Subjective Subjective: Ramiro Deluna DO, PGY1. GI progress note for Dr Rosario Patient seen and examined at bedside. She reports no complaints. Her abdominal pain resolved after ERCP yesterday. Tolerating her liquid diet. She denied nausea, vomiting, changes in bowel movement, blood per rectum or black stool Objective - Vital Signs/Intake and Output Vital Signs (last 24 hours): Temp Pulse Resp BP Pulse Ox 98.1 F 79 20 144/93 H 95 02/20/18 19:25 02/20/18 19:25 02/20/18 19:25 02/20/18 19:25 02/20/18 19:25 - Medications Medications: Current Medications Metoclopramide HCl (Reglan) 10 mg IV ONCE PRN PRN Reason: Nausea/Vomiting Morphine Sulfate (Morphine) 2 mg IVP Q4H PRN PRN Reason: Pain, severe (8-10) Ondansetron HCl (Zofran Inj) 4 mg IVP ONCE PRN PRN Reason: Nausea/Vomiting Pantoprazole Sodium (Protonix Ec Tab) 40 mg PO 0600 LIBAN Last Admin: 02/21/18 05:49 Dose: 40 mg - Labs Labs: 02/21/18 05:30 02/21/18 05:30 PT 11.6 SECONDS (9.4-12.5) 02/20/18 13:15 INR 1.02 02/20/18 13:15 APTT 28.3 Seconds (25.1-36.5) 02/20/18 13:15 - Constitutional Appears: Well, No Acute Distress - Head Exam Head Exam: ATRAUMATIC, NORMAL INSPECTION, NORMOCEPHALIC - Eye Exam Eye Exam: EOMI, Normal appearance, PERRL Pupil Exam: NORMAL ACCOMODATION, PERRL - Neck Exam Neck Exam: Full ROM, Normal Inspection. absent: Lymphadenopathy - Respiratory Exam Respiratory Exam: Clear to Ausculation Bilateral, NORMAL BREATHING PATTERN - Cardiovascular Exam Cardiovascular Exam: REGULAR RHYTHM, +S1, +S2. absent: Gallop, Rubs, Murmur - GI/Abdominal Exam GI & Abdominal Exam: Soft, Normal Bowel Sounds. absent: Tenderness, Organomegaly - Extremities Exam Extremities Exam: Full ROM, Normal Capillary Refill, Normal Inspection. absent: Joint Swelling, Pedal Edema - Neurological Exam Neurological Exam: Alert, Awake, CN II-XII Intact, Oriented x3 - Psychiatric Exam Psychiatric exam: Normal Affect, Normal Mood - Skin Skin Exam: Dry, Intact, Normal Color, Warm Assessment and Plan - Assessment and Plan (Free Text) Assessment: 52 y/o female with PMH of choledocholithiasis s/p ERCP with biliary stent placed 02/01/18 , PUD, diverticulosis presented to the ED with RUQ abdominal pain. S/P ERCP with stone removal Patient is hemodynamically stable, afebrile, no leukocytosis Plan: -patient asymptomatic, s/p ERCP with stones and stent removal -advance diet to soft -LFT WNL -f/u outpatient with Dr Rosario Case reviewed and pland discussed with Dr Abraham Deluna,
--- NOTE | 2018-02-21 15:49 | CP.PCM.DIS ---
Provider - Provider Attending physician: Michelle Rosario MD Primary care physician: Rodney Vega MD Consults: 02/20/18 15:42 Gastroenterology Consult Routine Comment: Consulting Provider: Michelle Rosario V Consulting Physician: Michelle Rosario V Reason for Consult: ERCP Time Spent in preparation of Discharge (in minutes): 35 Hospital Course - Lab Results Lab Results: Most Recent Lab Values WBC 4.5 10^3/uL (4.5-11.0) 02/21/18 05:30 RBC 4.19 10^6/uL (3.5-6.1) 02/21/18 05:30 Hgb 12.9 g/dL (12.0-16.0) 02/21/18 05:30 Hct 39.8 % (36.0-48.0) 02/21/18 05:30 MCV 95.0 fl (80.0-105.0) 02/21/18 05:30 MCH 30.8 pg (25.0-35.0) 02/21/18 05:30 MCHC 32.4 g/dl (31.0-37.0) 02/21/18 05:30 RDW 13.1 % (11.5-14.5) 02/21/18 05:30 Plt Count 181 10^3/uL (120.0-450.0) 02/21/18 05:30 MPV 11.6 fl (7.0-11.0) H 02/21/18 05:30 Gran % 40.8 % (50.0-68.0) L 02/21/18 05:30 Lymph % (Auto) 49.9 % (22.0-35.0) H 02/21/18 05:30 [place] % (Auto) 7.1 % (1.0-6.0) H 02/21/18 05:30 Eos % (Auto) 1.8 % (1.5-5.0) 02/21/18 05:30 Baso % (Auto) 0.4 % (0.0-3.0) 02/21/18 05:30 Gran # 1.85 (1.4-6.5) 02/21/18 05:30 Lymph # (Auto) 2.3 (1.2-3.4) 02/21/18 05:30 [place] # (Auto) 0.3 (0.1-0.6) 02/21/18 05:30 Eos # (Auto) 0.1 (0.0-0.7) 02/21/18 05:30 Baso # (Auto) 0.02 K/mm3 (0.0-2.0) 02/21/18 05:30 PT 11.6 SECONDS (9.4-12.5) 02/20/18 13:15 INR 1.02 02/20/18 13:15 APTT 28.3 Seconds (25.1-36.5) 02/20/18 13:15 Sodium 139 mmol/L (132-148) 02/21/18 05:30 Potassium 4.0 mmol/L (3.6-5.0) 02/21/18 05:30 Chloride 111 mmol/L (98-107) H 02/21/18 05:30 Carbon Dioxide 27 mmol/L (21-33) 02/21/18 05:30 Anion Gap 5 (10-20) L 02/21/18 05:30 BUN 4 mg/dL (7-21) L 02/21/18 05:30 Creatinine 0.6 mg/dl (0.7-1.2) L 02/21/18 05:30 Est GFR ( Amer) > 60 02/21/18 05:30 Est GFR (Non-Af Amer) > 60 02/21/18 05:30 Random Glucose 83 mg/dL (70-110) 02/21/18 05:30 Calcium 8.6 mg/dL (8.4-10.5) 02/21/18 05:30 Phosphorus 3.3 mg/dL (2.5-4.5) 02/21/18 05:30 Magnesium 2.0 mg/dL (1.7-2.2) 02/21/18 05:30 Total Bilirubin 0.4 mg/dL (0.2-1.3) 02/21/18 05:30 GGT 26 U/L (8-78) 02/20/18 13:00 AST 21 U/L (14-36) 02/21/18 05:30 ALT 29 U/L (7-56) 02/21/18 05:30 Alkaline Phosphatase 77 U/L (38-126) 02/21/18 05:30 Total Protein 5.5 g/dL (5.8-8.3) L 02/21/18 05:30 Albumin 3.0 g/dL (3.0-4.8) 02/21/18 05:30 Globulin 2.6 gm/dL 02/21/18 05:30 Albumin/Globulin Ratio 1.2 (1.1-1.8) 02/21/18 05:30 Lipase 167 U/L (23-300) 02/20/18 13:15 - Hospital Course Hospital Course: Upon hospital admission, this is a 52 year old female with PMH of PUD, diverticulosis and choledocholithiasis with sphincterotomy and biliary stent place on 02/01/18 presenting to the hospital for abdominal pain that began last night. Pain is located in the RUQ, began gradually, occurred at rest, rated 7/10 at worst, non radiating, sharp and denies any exacerbating or relieving factors. She admits to nausea and one episode of non bloody vomiting last night. Last meal was last night and last BM was this morning was was normal. She is scheduled for biliart stent removal today. LMP was yesterday and patient states there was no excessive bleeding. During hospital course, patient was afebrile, no WBC count present and no tachycardia present making infectious etiology unlikely. Obstruction etiology is unlikely as LFT's WNL and alk phos WNL. ERCP showed choledocholithiasis and biliary stent was removed. Her diet was advanced without complaints and patient's pain improved. Patient agreed with discharge and all her questions were answered. Discharge Exam - Additional Findings Additional findings: - Constitutional Appears: No Acute Distress - Head Exam Head Exam: ATRAUMATIC, NORMAL INSPECTION - Eye Exam Eye Exam: EOMI Pupil Exam: PERRL - ENT Exam ENT Exam: Mucous Membranes Moist - Neck Exam Neck exam: Positive for: Normal Inspection - Respiratory Exam Respiratory Exam: Clear to Auscultation Bilateral. absent: Accessory Muscle Use, Wheezes, Respiratory Distress - Cardiovascular Exam Cardiovascular Exam: REGULAR RHYTHM, +S1, +S2 - GI/Abdominal Exam GI & Abdominal Exam: Normal Bowel Sounds, Soft. absent: Firm, Guarding Additional comments: no abdominal tenderness - Extremities Exam Extremities exam: Positive for: normal inspection, pedal pulses present. Negative for: calf tenderness, tenderness - Back Exam Back exam: absent: CVA tenderness (L), CVA tenderness (R) - Neurological Exam Neurological exam: Alert, Oriented x3 - Skin Skin Exam: Normal Color, Warm Discharge Plan - Follow Up Plan Condition: GOOD Disposition: HOME/ ROUTINE Instructions: Gallstones (DC) Additional Instructions: PT discharged home. PT instructed to follow up with Dr. Rosario as instructed. PT instructed to return to ED if patient experiences any fevers, unrelenting pain, nausea, change in mental status. Referrals: Michelle Rosario MD [Medical Doctor] - Follow up with primary
--- NOTE | 2018-02-22 11:56 | RAD ---
Date of service: 02/20/2018 PROCEDURE: ERCP HISTORY: ? CBD OBST / STENT REMOVAL COMPARISON: 02/01/2018 TECHNIQUE: Standard protocol for this study/examination. FINDINGS: Total fluoroscopic time (continuous mode) utilized during the procedure 250.1 seconds. Dose report: DLP 33.24 (mGy/m2) IMPRESSION: Submitted images from the current procedure: Greater than 20
== END 2018-02-21 12:08 | disposition home or self-care (01) ==
LOC: ED 12:43 → SDS 15:19 → 3RNO 18:59 → SDS 02-21 12:08
PROVIDERS: ATTEND Internal Medicine Gastroenterology
DX: K80.42 Calculus of bile duct with acute cholecystitis without obstruction (principal); J44.9 Chronic obstructive pulmonary disease, unspecified; K21.9 Gastro-esophageal reflux disease without esophagitis; K56.609 Unspecified intestinal obstruction, unspecified as to partial versus complete obstruction; K57.90 Diverticulosis of intestine, part unspecified, without perforation or abscess without bleeding; Z87.11 Personal history of peptic ulcer disease; F17.210 Nicotine dependence, cigarettes, uncomplicated; Z79.899 Other long term (current) drug therapy; Z90.49 Acquired absence of other specified parts of digestive tract; R40.2412 Glasgow coma scale score 13-15, at arrival to emergency department; R10.9 Unspecified abdominal pain
CPT/HCPCS: 36415; 43264; 43275; 74330; 80053 ×2; 82977; 83690; 83735 ×2; 84100; 85025 ×2; 85610; 85730; 93005; 96360; 99282; J0330; J2250; J2270; J2704; J3010; J7030; Q9966

== ENCOUNTER 2018-03-10 23:24 | Inpatient (IN) | payer OTHER ==
[2018-03-10 23:24] VITALS: BMI 29.4
[2018-03-11] MEDS ORDERED: Sodium Chloride 0.9% 1,000 ML IV STA (00:05)
--- NOTE | 2018-03-11 00:21 | ED PDOC ---
Arrival/HPI - General Chief Complaint: Abdominal Pain Time Seen by Provider: 03/10/18 23:40 Historian: Patient - History of Present Illness Narrative History of Present Illness (Text): 03/11/18 00:02 52 year old female, whose past medical history includes PUD, diverticulosis and choledocholithiasis with sphincterotomy and biliary stent place on 02/01/18, cholecystectomy 02/06/18, ERCP 02/17/18, presents to the emergency department complaining of constant epigastric pain radiating to the right flank ever since the ERCP procedure. Patient reports vomiting yesterday and today. Patient has been seeing Dr. Coates who told her to come in for evaluation. Patient denies any fever, chills, chest pain, shortness of breath, diarrhea, urinary symptoms, back pain, neck pain, headache, dizziness, or any other complaints. Symptom Onset: Gradual Symptom Course: Unchanged Activities at Onset: Light Context: Home Past Medical History - Provider Review Nursing Documentation Reviewed: Yes - Infectious Disease Hx of Infectious Diseases: None - Tetanus Immunization Tetanus Immunization: Unknown - Reproductive Currently : Unknown - Past Medical History Past Medical History: No Previous - Cardiac Hx Pacemaker: No - Pulmonary Hx Chronic Obstructive Pulmonary Disease (COPD): Yes - Neurological Hx Paralysis: No - Hematological/Oncological Hx Blood Transfusions: No - Musculoskeletal/Rheumatological Hx Musculoskeletal Disorders: No - Gastrointestinal Other/Comment: SBO - Psychiatric Hx Emotional Abuse: No Hx Physical Abuse: No Hx Substance Use: No - Past Surgical History Past Surgical History: No Previous - Anesthesia Hx Anesthesia: Yes Hx Anesthesia Reactions: Yes (VOMITING,DIZZINESS) Hx Malignant Hyperthermia: No - Suicidal Assessment Feels Threatened In Home Enviroment: No Family/Social History - Physician Review Nursing Documentation Reviewed: Yes Family/Social History: No Known Family HX Smoking Status: Heavy Smoker > 10 Cigarettes Daily Hx Alcohol Use: No Hx Substance Use: No Hx Substance Use Treatment: No Allergies/Home Meds Allergies/Adverse Reactions: Allergies No Known Allergies Allergy (Verified 03/10/18 23:38) Review of Systems - Physician Review All systems were reviewed & negative as marked: Yes - Review of Systems Constitutional: absent: Fevers, Other (Chills) Respiratory: absent: SOB Cardiovascular: absent: Chest Pain Gastrointestinal: Abdominal Pain, Nausea, Vomiting. absent: Diarrhea Genitourinary Female: absent: Dysuria, Frequency, Hematuria Musculoskeletal: absent: Back Pain, Neck Pain Neurological: absent: Headache, Dizziness Physical Exam Vital Signs Reviewed: Yes Appearance: Positive for: Well-Appearing, Non-Toxic, Comfortable Pain Distress: None Mental Status: Positive for: Alert and Oriented X 3 - Systems Exam Head: Present: Atraumatic, Normocephalic Pupils: Present: PERRL Extroacular Muscles: Present: EOMI Conjunctiva: Present: Normal Mouth: Present: Moist Mucous Membranes Neck: Present: Normal Range of Motion Respiratory/Chest: Present: Clear to Auscultation, Good Air Exchange. No: Respiratory Distress, Accessory Muscle Use Cardiovascular: Present: Regular Rate and Rhythm, Normal S1, S2. No: Murmurs Abdomen: Present: Tenderness (epigastric tenderness and right glank tenderness), Guarding (slight), Other (RUQ pain). No: Distention, Peritoneal Signs Back: Present: Normal Inspection Upper Extremity: Present: Normal Inspection. No: Cyanosis, Edema Lower Extremity: Present: Normal Inspection. No: Edema Neurological: Present: GCS=15, CN II-XII Intact, Speech Normal Skin: Present: Warm, Dry, Normal Color. No: Rashes Psychiatric: Present: Alert, Oriented x 3, Normal Insight, Normal Concentration Medical Decision Making ED Course and Treatment: 03/11/18 00:02 Impression: 52 year old female presents complaining of constant epigastric pain radiating to the right side down to the right flank ever since the ERCP procedure. Plan: -- Lab -- Nicoderm, Toradol, Zofran, IV Fluids, -- Urinalysis -- CT of abdomen and pelvis w contrast -- Reassess and disposition Prior Visits: Notes and results from previous visits were reviewed. Progress Notes: CT SCAN OF THE ABDOMEN AND PELVIS WITH CONTRAST Electronically signed on Mar 11, 2018 3:39:35 AM EST by: Shweta Reed M.D. IMPRESSION: Prior cholecystectomy. Surgical changes of the common bile duct. Diffuse thickening of the common bile duct with minimal surrounding inflammatory fat stranding. Please evaluate to exclude ascending cholangitis. Minimal fat stranding adjacent to the pancreatic head and uncinate process. This can be reactive to an ascending cholangitis. The differential diagnoses includes minimal acute pancreatitis. Correlation with lipase values is suggested. No fluid collection or drainable abscess formation. 03/11/18 04:19 Case discussed with biomedical engineering director and Dr. Rodriguez who is aware and agrees with the plan. Accepts patient into hospitalist service. - Lab Interpretations I have reviewed the lab results: Yes - Medication Orders Current Medication Orders: Sodium Chloride (Sodium Chloride 0.9%) 1,000 mls @ 999 mls/hr IV .Q1H1M STA Stop: 03/11/18 01:05 Discontinued Medications Ketorolac Tromethamine (Toradol) 30 mg IVP STAT STA Stop: 03/11/18 00:06 Ondansetron HCl (Zofran Inj) 4 mg IVP STAT STA Stop: 03/11/18 00:06 - Scribe Statement The provider has reviewed the documentation as recorded by the Melecio Farmer Provider Scribe Attestation: All medical record entries made by the Jordanibomaira were at my direction and personally dictated by me. I have reviewed the chart and agree that the record accurately reflects my personal performance of the history, physical exam, [facility] decision making, and the department course for this patient. I have also personally directed, reviewed, and agree with the discharge instructions and disposition. Disposition/Present on Arrival - Present on Arrival Any Indicators Present on Arrival: No History of DVT/PE: No History of Uncontrolled Diabetes: No Urinary Catheter: No History of Decub. Ulcer: No History Surgical Site Infection Following: None - Disposition Have Diagnosis and Disposition been Completed?: Yes Diagnosis: Ascending cholangitis Disposition: HOSPITALIZED Disposition Time: 06:00 Patient Plan: Admission Condition: GOOD
[2018-03-11 00:46] LABS: BASO # 0.02 K/mm3 (0.0-2.0); BASO % 0.2 % (0.0-3.0); EOS % 0.1 % (1.5-5.0); HEMOGLOBIN 14.5 g/dL (12.0-16.0); LYMPH # 1.5 (1.2-3.4); LYMPH % 17.2 % (22.0-35.0); MEAN CELL VOLUME 91.9 fl (80.0-105.0); MEAN CORPUSCULAR HEMOGLOBIN 30.9 pg (25.0-35.0); MEAN CORPUSCULAR HGB CONC 33.6 g/dl (31.0-37.0); MEAN PLATELET VOLUME 10.5 fl (7.0-11.0); MONO # 0.4 (0.1-0.6); MONO % 4.9 % (1.0-6.0); PH,URINE 6.5 (4.7-8.0); RBC 4.69 10^6/uL (3.5-6.1); RED CELL DISTRIBUTION WIDTH 12.9 % (11.5-14.5); URINE BILIRUBIN NEGATIVE (NEGATIVE); URINE BLOOD NEGATIVE (NEGATIVE); URINE GLUCOSE (UA) NEGATIVE (NEGATIVE); URINE LEUKOCYTE ESTERASE NEGATIVE Leu/uL (NEGATIVE); URINE PROTEIN NEGATIVE mg/dL (<30 mg/dL); WHITE BLOOD COUNT 8.8 10^3/uL (4.5-11.0)
[2018-03-11 01:13] LABS: URINE APPEARANCE CLEAR (CLEAR); URINE COLOR YELLOW (YELLOW)
[2018-03-11 01:20] LABS: ALB/GLOB RATIO 1.4 (1.1-1.8); ALBUMIN 4.5 g/dL (3.0-4.8); ALT/SGPT 25 U/L (7-56); AST/SGOT 17 U/L (14-36); BLOOD UREA NITROGEN 3 mg/dL (7-21); CALCIUM 9.8 mg/dL (8.4-10.5); GFR NON-AFRICAN AMERICAN > 60; LIPASE 70 U/L (23-300)
[2018-03-11] MEDS ORDERED: Iohexol 350 MG/100 ML VIAL ONE (02:20)
[2018-03-11] MEDS: Piperacill/Tazo 4.5gm in NS 4.5 GM/100 ML BAG IVPB STA ×2 (04:28→04:47)
--- NOTE | 2018-03-11 04:55 | CP.PCM.HP ---
<ShanonRyan girard - Last Filed: 03/11/18 07:03> History of Present Illness - History of Present Illness History of Present Illness: PGY-1 H&P for Dr. Rodriguez CC: Abdominal Pain HPI: Patient is a 52 year old female, whose past medical history includes PUD, diverticulosis, choledocholithiasis (with sphincterotomy and biliary stent place on 02/01/18), cholecystectomy (02/06/18), gallstone pancreatitis (ERCP 02/17/18), and COPD, presents to the emergency department complaining of constant epig astric pain radiating to the right flank ever since the ERCP procedure. Patient has been seeing Dr. Rosario who told her to come to the hospital for evaluation. Patient also complains of 2 episodes of vomiting that started yesterday. She states that she vomited clear, watery vomitus both times and denies seeing any blood. She admits to having diarrhea sometimes but denies having diarrhea the last few days, . Patient denies any fevers, chills, chest pain, shortness of breath, or urinary symptoms. 12 system ROS reviewed and negative except mentioned in HPI. Pmhx: PUD, diverticulosis, choledocholithiasis (with sphincterotomy and biliary stent place on 02/01/18), cholecystectomy (02/06/18), gallstone pancreatitis (ERCP 02/17/18), and COPD. Pshx: Cholecystectomy 02/06/18 Meds: Omperazole 40 BID, Ursodiol 500mg TID All: NKDA Social: 1 ppd x 37 years, denies etoh or illicit drug use Fam: Dad: DM, Mom: Lung cancer, Brother: DM PMD: Dr. Vega Pharm: [facility] [place] Present on Admission - Present on Admission Any Indicators Present on Admission: No History of DVT/PE: No History of Uncontrolled Diabetes: No Urinary Catheter: No Decubitus Ulcer Present: No Review of Systems - Review of Systems All systems: reviewed and no additional remarkable complaints except Past Patient History - Infectious Disease Hx of Infectious Diseases: None - Tetanus Immunizations Tetanus Immunization: Unknown - Past Social History Smoking Status: Heavy Smoker > 10 Cigarettes Daily - CARDIAC Hx Pacemaker: No - PULMONARY Hx Chronic Obstructive Pulmonary Disease (COPD): Yes - NEUROLOGICAL Hx Paralysis: No - HEMATOLOGICAL/ONCOLOGICAL Hx Blood Transfusions: No - MUSCULOSKELETAL/RHEUMATOLOGICAL Hx Musculoskeletal Disorders: No - GASTROINTESTINAL Other/Comment: SBO - PSYCHIATRIC Hx Emotional Abuse: No Hx Physical Abuse: No Hx Substance Use: No - SURGICAL HISTORY Hx Surgeries: Yes - ANESTHESIA Hx Anesthesia: Yes Hx Anesthesia Reactions: Yes (VOMITING,DIZZINESS) Hx Malignant Hyperthermia: No Meds Allergies/Adverse Reactions: Allergies Allergy/AdvReac Type Severity Reaction Status Date / Time No Known Allergies Allergy Verified 03/10/18 23:38 Physical Exam - Constitutional Appears: Well, Non-toxic, No Acute Distress - Head Exam Head Exam: ATRAUMATIC, NORMAL INSPECTION - Eye Exam Eye Exam: EOMI, Normal appearance, PERRL. absent: Scleral icterus - ENT Exam ENT Exam: Mucous Membranes Dry - Neck Exam Neck exam: Positive for: Normal Inspection - Respiratory Exam Respiratory Exam: Clear to Auscultation Bilateral. absent: Rales, Rhonchi, Wheezes, Respiratory Distress - Cardiovascular Exam Cardiovascular Exam: REGULAR RHYTHM, +S1, +S2. absent: Gallop, Rubs, Systolic Murmur - GI/Abdominal Exam GI & Abdominal Exam: Normal Bowel Sounds, Soft, Tenderness. absent: Distended, Firm, Guarding Additional comments: Right quadrant tender to palpation. Negative Rose's sign. Surgical scar noted, no signs of infection - Extremities Exam Extremities exam: Positive for: normal inspection. Negative for: calf tend erness, pedal edema - Back Exam Back exam: NORMAL INSPECTION. absent: CVA tenderness (L), CVA tenderness (R) - Neurological Exam Neurological exam: Alert, CN II-XII Intact, Oriented x3 - Psychiatric Exam Psychiatric exam: Normal Affect, Normal Mood - Skin Skin Exam: Dry, Intact, Normal Color Results - Vital Signs Recent Vital Signs: Last Vital Signs Temp Pulse 76 03/11/18 02:55 Resp 16 03/11/18 02:55 BP 105/79 03/11/18 02:55 Pulse Ox 95 03/11/18 02:55 - Labs Result Diagrams: 03/11/18 00:30 03/11/18 00:30 Labs: Laboratory Results - last 24 hr 03/11/18 03/11/18 03/11/18 00:30 00:30 00:30 WBC 8.8 D RBC 4.69 Hgb 14.5 Hct 43.1 MCV 91.9 D MCH 30.9 MCHC 33.6 RDW 12.9 Plt Count 230 MPV 10.5 Neut % (Auto) 77.6 H Lymph % (Auto) 17.2 L [place] % (Auto) 4.9 Eos % (Auto) 0.1 L Baso % (Auto) 0.2 Lymph # (Auto) 1.5 [place] # (Auto) 0.4 Eos # (Auto) 0.0 Baso # (Auto) 0.02 Absolute Neuts (auto) 6.84 H Sodium 138 Potassium 3.7 Chloride 104 Carbon Dioxide 25 Anion Gap 13 BUN 3 L Creatinine 0.6 L Est GFR ( Amer) > 60 Est GFR (Non-Af Amer) > 60 Random Glucose 112 H Calcium 9.8 Total Bilirubin 0.5 AST 17 ALT 25 Alkaline Phosphatase 97 Total Protein 7.8 Albumin 4.5 Globulin 3.3 Albumin/Globulin Ratio 1.4 Lipase 70 Urine Color Yellow Urine Appearance Clear Urine pH 6.5 Ur Specific [place] >= 1.030 Urine Protein Negative Urine Glucose (UA) Negative Urine Ketones 40 H Urine Blood Negative Urine Nitrate Negative Urine Bilirubin Negative Urine Urobilinogen 2.0 H Ur Leukocyte Esterase Negative Assessment & Plan - Assessment and Plan (Free Text) Assessment: Patient is a 52 year old female, whose past medical history includes PUD, diverticulosis, choledocholithiasis (with sphincterotomy and biliary stent place on 02/01/18), cholecystectomy (02/06/18), gallstone pancreatitis (ERCP 02/17/18), and COPD, presents to the emergency department complaining of constant epigastric pain radiating to the right flank ever since the ERCP procedure. Plan: Abdominal pain - Likely 2/2 post procedure, r/o ascending cholangitis - CT Abd/pelvis: Prior cholecystectomy. Surgical changes of the common bile duct. Diffuse thickening of the common bile duct with minimal surrounding inflammatory fat stranding. Please evaluate to exclude ascending cholangitis. Minimal fat stranding adjacent to the pancreatic head and uncinate process. This can be reactive to an ascending cholangitis. The differential diagnoses includes minimal acute pancreatitis. Correlation with lipase values is suggested. No fluid collection or drainable abscess formation. - GI consulted, Dr. Rosario - Zosyn 3.375g IVP Q8 (started on 03/11) - Blood cuture: pending - Toradol 30mg IVP Q6 PRN - Zofran 4mg IVP Q4 PRN - IVF: NS @ 100 mls/hr Diarrhea - C. diff and fecal leukocyte: pending - IVF: NS @ 100 mls/hr Hx of COPD - Duonebs Q8 PRN for SOB Tobacco abuse disorder - Nicoderm daily - Educated patient on smoking cessation Prophylaxis: - DVT: SCD's - GI: Protonix 40mh PO QD Case discussed with Dr. Michael Dover, PGY-1 <Freda Rodriguez - Last Filed: 03/11/18 19:31> Results - Vital Signs Recent Vital Signs: Last Vital Signs Temp 99 F 03/11/18 08:32 Pulse 88 03/11/18 12:47 Resp 20 03/11/18 12:47 BP 138/91 H 03/11/18 08:32 Pulse Ox 96 03/11/18 08:32 - Labs Result Diagrams: 03/11/18 00:30 03/11/18 00:30 Labs: Laboratory Results - last 24 hr 03/11/18 03/11/18 03/11/18 00:30 00:30 00:30 WBC 8.8 D RBC 4.69 Hgb 14.5 Hct 43.1 MCV 91.9 D MCH 30.9 MCHC 33.6 RDW 12.9 Plt Count 230 MPV 10.5 Neut % (Auto) 77.6 H Lymph % (Auto) 17.2 L [place] % (Auto) 4.9 Eos % (Auto) 0.1 L Baso % (Auto) 0.2 Lymph # (Auto) 1.5 [place] # (Auto) 0.4 Eos # (Auto) 0.0 Baso # (Auto) 0.02 Absolute Neuts (auto) 6.84 H Sodium 138 Potassium 3.7 Chloride 104 Carbon Dioxide 25 Anion Gap 13 BUN 3 L Creatinine 0.6 L Est GFR ( Amer) > 60 Est GFR (Non-Af Amer) > 60 Random Glucose 112 H Calcium 9.8 Total Bilirubin 0.5 AST 17 ALT 25 Alkaline Phosphatase 97 Total Protein 7.8 Albumin 4.5 Globulin 3.3 Albumin/Globulin Ratio 1.4 Lipase 70 Urine Color Yellow Urine Appearance Clear Urine pH 6.5 Ur Specific [place] >= 1.030 Urine Protein Negative Urine Glucose (UA) Negative Urine Ketones 40 H Urine Blood Negative Urine Nitrate Negative Urine Bilirubin Negative Urine Urobilinogen 2.0 H Ur Leukocyte Esterase Negative Urine RBC Urine WBC Ur Epithelial Cells Urine Bacteria 03/11/18 07:35 WBC RBC Hgb Hct MCV MCH MCHC RDW Plt Count MPV Neut % (Auto) Lymph % (Auto) [place] % (Auto) Eos % (Auto) Baso % (Auto) Lymph # (Auto) [place] # (Auto) Eos # (Auto) Baso # (Auto) Absolute Neuts (auto) Sodium Potassium Chloride Carbon Dioxide Anion Gap BUN Creatinine Est GFR ( Amer) Est GFR (Non-Af Amer) Random Glucose Calcium Total Bilirubin AST ALT Alkaline Phosphatase Total Protein Albumin Globulin Albumin/Globulin Ratio Lipase Urine Color Yellow Urine Appearance Clear Urine pH 6.5 Ur Specific [place] 1.015 Urine Protein Trace H Urine Glucose (UA) Negative Urine Ketones Negative Urine Blood Negative Urine Nitrate Negative Urine Bilirubin Negative Urine Urobilinogen 1.0 H Ur Leukocyte Esterase Negative Urine RBC None Urine WBC None Ur Epithelial Cells 0 - 2 Urine Bacteria Neg Attending/Attestation - Attestation I have personally seen and examined this patient.: Yes I have fully participated in the care of the patient.: Yes I have reviewed all pertinent clinical information: Yes
[2018-03-11] MEDS ORDERED: Albuterol-Ipratrop 3 mg / 0.5 (3 ml) UD IH PRN (06:57)
[2018-03-11 07:48] LABS: PH,URINE 6.5 (4.7-8.0); URINE BILIRUBIN NEGATIVE (NEGATIVE); URINE BLOOD NEGATIVE (NEGATIVE); URINE GLUCOSE (UA) NEGATIVE (NEGATIVE); URINE LEUKOCYTE ESTERASE NEGATIVE Leu/uL (NEGATIVE); URINE PROTEIN TRACE mg/dL (<30 mg/dL)
[2018-03-11 07:51] LABS: URINE APPEARANCE CLEAR (CLEAR); URINE COLOR YELLOW (YELLOW)
[2018-03-11 07:56] LABS: URINE BACTERIA NEG /hpf; URINE EPITHELIAL CELLS 0 - 2 /hpf (0-5)
[2018-03-11] MEDS: Sodium Chloride 0.9% 1,000 ML IV SCH (08:45)
--- NOTE | 2018-03-11 10:03 | CT ---
Date of service: 03/11/2018 PROCEDURE: CT Abdomen and Pelvis with contrast HISTORY: abdominal pain COMPARISON: Comparison is made to the previous study dated 01/30/2018 prior MRCP dated 02/01/2018 TECHNIQUE: Contrast dose: 100 mL of Omnipaque 300 intravenously. Radiation dose: Total exam DLP = 426.12 mGy-cm. This CT exam was performed using one or more of the following dose reduction techniques: Automated exposure control, adjustment of the mA and/or kV according to patient size, and/or use of iterative reconstruction technique. FINDINGS: LOWER THORAX: Unremarkable. LIVER: Again noted is 2 centimeter low-attenuation cyst at the left liver lobe. Slight intrahepatic biliary ductal dilatation is noted. GALLBLADDER AND BILE DUCTS: The patient is status post cholecystectomy. Surgical clips seen at the gallbladder fossa. There is moderate dilatation of the cystic duct noted. There is calcified wall round gallstone seen at the junction of the cystic duct and common bile duct measures 11 millimeter in the transverse diameter. The distal portion of the common bile duct is normal in caliber. Mildly dilated common hepatic duct. Mild thickening of the extrahepatic biliary ducts wall and possible mild inflammatory changes around it. Please correlate clinically for colitis. PANCREAS: Unremarkable. No gross lesion or ductal dilatation. SPLEEN: Unremarkable. ADRENALS: Unremarkable. No mass. KIDNEYS AND URETERS: Unremarkable. No hydronephrosis. No solid mass. VASCULATURE: Unremarkable. No aortic aneurysm. No aortic atherosclerotic calcification or mural plaque present. BOWEL: No obstruction. No gross mural thickening. Few colonic diverticulosis are noted without evidence of diverticulitis. APPENDIX: Normal appendix. PERITONEUM: Unremarkable. No free fluid. No free air. LYMPH NODES: Unremarkable. No enlarged lymph nodes. BLADDER: Unremarkable. REPRODUCTIVE: The uterus is heterogeneous enlarged likely contains at the lower uterine segment. If clinically warranted further assessment by ultrasound may be obtained. BONES: No acute fracture. OTHER FINDINGS: None. IMPRESSION: Status post cholecystectomy and removal of multiple choledocholithiasis. Dilated cystic duct and common hepatic duct. 11 millimeter calcified wall stone noted at the junction of the cystic duct and common biliary duct likely resulting in mild/partial obstruction. Further assessment by ultrasound or ERCP or MRCP is suggested. Mild diffuse enhancement and thickening of the extrahepatic biliary ducts noted. Correlate clinically for possible cholangitis. Additional findings have not significantly changed since the prior exam. Preliminary report was submitted by [facility].
--- NOTE | 2018-03-11 12:07 | CP.PCM.CON ---
<Anival Meza - Last Filed: 03/11/18 14:44> History of Present Illness - History of Present Illness History of Present Illness: GI Fellow PGY4, consult note. Patient is a 52F presenting with abdominal pain. The pain has been persistent since she had ERCP earlier this month. The pain is epigastric, unchanged by food. Work-up shows normal liver tests, normal lipase. CT A/P reviewed and shows CBD stone, 11mm, with common hepatic duct dilation. She denies fever, abdominal pain that acutely worsened, chills, sweats. History is important for choledocolithiasis s/p sphincterotomy, stenting, and cholecystectomy in January 2018. She had ERCP for GS pancreatitis 02/20/18 and stent was removed along with a stone. PMH: choledocholithiasis, PUD, Diverticulosis Pshx: lap cholecystectomy Meds: Omperazole, Ursodiol, colace All: NKDA Social: 1 ppd x 37 years, denies etoh or illicit drug use Fam: Dad: DM, Mom: Lung ca, Brother; DM PMD: Dr. Vega 12pt ROS completed and negative except for above. Past Patient History - Infectious Disease Hx of Infectious Diseases: None - Tetanus Immunizations Tetanus Immunization: Unknown - Past Social History Smoking Status: Heavy Smoker > 10 Cigarettes Daily - CARDIAC Hx Pacemaker: No - PULMONARY Hx Chronic Obstructive Pulmonary Disease (COPD): Yes - NEUROLOGICAL Hx Paralysis: No - HEMATOLOGICAL/ONCOLOGICAL Hx Blood Transfusions: No - MUSCULOSKELETAL/RHEUMATOLOGICAL Hx Musculoskeletal Disorders: No - GASTROINTESTINAL Other/Comment: SBO - PSYCHIATRIC Hx Emotional Abuse: No Hx Physical Abuse: No Hx Substance Use: No - SURGICAL HISTORY Hx Surgeries: Yes - ANESTHESIA Hx Anesthesia: Yes Hx Anesthesia Reactions: Yes (VOMITING,DIZZINESS) Hx Malignant Hyperthermia: No Meds Allergies/Adverse Reactions: Allergies Allergy/AdvReac Type Severity Reaction Status Date / Time No Known Allergies Allergy Verified 03/10/18 23:38 - Medications Medications: Current Medications Albuterol/Ipratropium (Duoneb 3 Mg/0.5 Mg (3 Ml) Ud) 3 ml IH Q8H PRN PRN Reason: Shortness of Breath Piperacillin Sod/Tazobactam Sod (Zosyn 3.375 In Ns 100ml) 100 mls @ 25 mls/hr IVPB Q8 LIBAN; Protocol Stop: 03/11/18 17:59 Sodium Chloride (Sodium Chloride 0.9%) 1,000 mls @ 100 mls/hr IV .Q10H [facility] Last Admin: 03/11/18 08:45 Dose: 100 mls/hr Nicotine (Nicoderm Cq) 1 patch TD DAILY [facility] Ondansetron HCl (Zofran Inj) 4 mg IVP Q4H PRN PRN Reason: Nausea/Vomiting Oxycodone/Acetaminophen (Percocet 5/325 Mg Tab) 1 tab PO Q6H PRN PRN Reason: Pain, severe (8-10) Stop: 03/14/18 09:48 Pantoprazole Sodium (Protonix Ec Tab) 40 mg PO 0600 [facility] Physical Exam - Constitutional Appears: Non-toxic, No Acute Distress - Head Exam Head Exam: ATRAUMATIC, NORMAL INSPECTION - Eye Exam Eye Exam: EOMI, Normal appearance - ENT Exam ENT Exam: Mucous Membranes Moist, Normal Exam - Respiratory Exam Respiratory Exam: Clear to Auscultation Bilateral, NORMAL BREATHING PATTERN - Cardiovascular Exam Cardiovascular Exam: REGULAR RHYTHM, +S1, +S2 - GI/Abdominal Exam GI & Abdominal Exam: Normal Bowel Sounds, Soft. absent: Guarding, Tenderness - Neurological Exam Neurological exam: Alert, CN II-XII Intact, Oriented x3 - Psychiatric Exam Psychiatric exam: Normal Affect, Normal Mood - Skin Skin Exam: Dry, Normal Color Results - Vital Signs Recent Vital Signs: Last Vital Signs Temp 99 F 03/11/18 08:32 Pulse 88 03/11/18 08:32 Resp 20 03/11/18 08:32 BP 138/91 H 03/11/18 08:32 Pulse Ox 96 03/11/18 08:32 - Labs Result Diagrams: 03/11/18 00:30 03/11/18 00:30 Labs: Laboratory Results - last 24 hr 03/11/18 03/11/18 03/11/18 00:30 00:30 00:30 WBC 8.8 D RBC 4.69 Hgb 14.5 Hct 43.1 MCV 91.9 D MCH 30.9 MCHC 33.6 RDW 12.9 Plt Count 230 MPV 10.5 Neut % (Auto) 77.6 H Lymph % (Auto) 17.2 L [place] % (Auto) 4.9 Eos % (Auto) 0.1 L Baso % (Auto) 0.2 Lymph # (Auto) 1.5 [place] # (Auto) 0.4 Eos # (Auto) 0.0 Baso # (Auto) 0.02 Absolute Neuts (auto) 6.84 H Sodium 138 Potassium 3.7 Chloride 104 Carbon Dioxide 25 Anion Gap 13 BUN 3 L Creatinine 0.6 L Est GFR ( Amer) > 60 Est GFR (Non-Af Amer) > 60 Random Glucose 112 H Calcium 9.8 Total Bilirubin 0.5 AST 17 ALT 25 Alkaline Phosphatase 97 Total Protein 7.8 Albumin 4.5 Globulin 3.3 Albumin/Globulin Ratio 1.4 Lipase 70 Urine Color Yellow Urine Appearance Clear Urine pH 6.5 Ur Specific [place] >= 1.030 Urine Protein Negative Urine Glucose (UA) Negative Urine Ketones 40 H Urine Blood Negative Urine Nitrate Negative Urine Bilirubin Negative Urine Urobilinogen 2.0 H Ur Leukocyte Esterase Negative Urine RBC Urine WBC Ur Epithelial Cells Urine Bacteria 03/11/18 07:35 WBC RBC Hgb Hct MCV MCH MCHC RDW Plt Count MPV Neut % (Auto) Lymph % (Auto) [place] % (Auto) Eos % (Auto) Baso % (Auto) Lymph # (Auto) [place] # (Auto) Eos # (Auto) Baso # (Auto) Absolute Neuts (auto) Sodium Potassium Chloride Carbon Dioxide Anion Gap BUN Creatinine Est GFR ( Amer) Est GFR (Non-Af Amer) Random Glucose Calcium Total Bilirubin AST ALT Alkaline Phosphatase Total Protein Albumin Globulin Albumin/Globulin Ratio Lipase Urine Color Yellow Urine Appearance Clear Urine pH 6.5 Ur Specific [place] 1.015 Urine Protein Trace H Urine Glucose (UA) Negative Urine Ketones Negative Urine Blood Negative Urine Nitrate Negative Urine Bilirubin Negative Urine Urobilinogen 1.0 H Ur Leukocyte Esterase Negative Urine RBC None Urine WBC None Ur Epithelial Cells 0 - 2 Urine Bacteria Neg Assessment & Plan - Assessment and Plan (Free Text) Assessment: #Choledocolithiasis, 11mm, non-obstruction #Persistent abdominal pain PLAN: -Chart reviewed, previous ERCP, cholecystectomy -CBD stone is non-obstructing, doubt acute cholangitis at this time. -Patient will likely need ERCP, spy-glass -Agree to continue Abx -f/u blood cultures Case discussed with Dr. Rosario. See attestation. - Date & Time Date: 03/11/18 Time: 12:15 <Michelle Rosario V - Last Filed: 03/12/18 00:00> Meds - Medications Medications: Current Medications Albuterol/Ipratropium (Duoneb 3 Mg/0.5 Mg (3 Ml) Ud) 3 ml IH Q8H PRN PRN Reason: Shortness of Breath Sodium Chloride (Sodium Chloride 0.9%) 1,000 mls @ 100 mls/hr IV .Q10H [facility] Last Admin: 03/11/18 08:45 Dose: 100 mls/hr Nicotine (Nicoderm Cq) 1 patch TD DAILY [facility] Ondansetron HCl (Zofran Inj) 4 mg IVP Q4H PRN PRN Reason: Nausea/Vomiting Last Admin: 03/11/18 17:37 Dose: 4 mg Oxycodone/Acetaminophen (Percocet 5/325 Mg Tab) 1 tab PO Q6H PRN PRN Reason: Pain, severe (8-10) Stop: 03/14/18 09:48 Last Admin: 03/11/18 17:36 Dose: 1 tab Pantoprazole Sodium (Protonix Ec Tab) 40 mg PO 0600 [facility] Last Admin: 03/11/18 17:32 Dose: 40 mg Results - Vital Signs Recent Vital Signs: Last Vital Signs Temp 98 F 03/11/18 22:48 Pulse 76 03/11/18 22:48 Resp 16 03/11/18 22:48 BP 124/84 03/11/18 22:48 Pulse Ox 95 03/11/18 22:48 - Labs Result Diagrams: 03/11/18 00:30 03/11/18 00:30 Labs: Laboratory Results - last 24 hr 03/11/18 03/11/18 03/11/18 00:30 00:30 00:30 WBC 8.8 D RBC 4.69 Hgb 14.5 Hct 43.1 MCV 91.9 D MCH 30.9 MCHC 33.6 RDW 12.9 Plt Count 230 MPV 10.5 Neut % (Auto) 77.6 H Lymph % (Auto) 17.2 L [place] % (Auto) 4.9 Eos % (Auto) 0.1 L Baso % (Auto) 0.2 Lymph # (Auto) 1.5 [place] # (Auto) 0.4 Eos # (Auto) 0.0 Baso # (Auto) 0.02 Absolute Neuts (auto) 6.84 H Sodium 138 Potassium 3.7 Chloride 104 Carbon Dioxide 25 Anion Gap 13 BUN 3 L Creatinine 0.6 L Est GFR ( Amer) > 60 Est GFR (Non-Af Amer) > 60 Random Glucose 112 H Calcium 9.8 Total Bilirubin 0.5 AST 17 ALT 25 Alkaline Phosphatase 97 Total Protein 7.8 Albumin 4.5 Globulin 3.3 Albumin/Globulin Ratio 1.4 Lipase 70 Urine Color Yellow Urine Appearance Clear Urine pH 6.5 Ur Specific [place] >= 1.030 Urine Protein Negative Urine Glucose (UA) Negative Urine Ketones 40 H Urine Blood Negative Urine Nitrate Negative Urine Bilirubin Negative Urine Urobilinogen 2.0 H Ur Leukocyte Esterase Negative Urine RBC Urine WBC Ur Epithelial Cells Urine Bacteria 03/11/18 07:35 WBC RBC Hgb Hct MCV MCH MCHC RDW Plt Count MPV Neut % (Auto) Lymph % (Auto) [place] % (Auto) Eos % (Auto) Baso % (Auto) Lymph # (Auto) [place] # (Auto) Eos # (Auto) Baso # (Auto) Absolute Neuts (auto) Sodium Potassium Chloride Carbon Dioxide Anion Gap BUN Creatinine Est GFR ( Amer) Est GFR (Non-Af Amer) Random Glucose Calcium Total Bilirubin AST ALT Alkaline Phosphatase Total Protein Albumin Globulin Albumin/Globulin Ratio Lipase Urine Color Yellow Urine Appearance Clear Urine pH 6.5 Ur Specific [place] 1.015 Urine Protein Trace H Urine Glucose (UA) Negative Urine Ketones Negative Urine Blood Negative Urine Nitrate Negative Urine Bilirubin Negative Urine Urobilinogen 1.0 H Ur Leukocyte Esterase Negative Urine RBC None Urine WBC None Ur Epithelial Cells 0 - 2 Urine Bacteria Neg Attending/Attestation - Attestation I have personally seen and examined this patient.: Yes I have fully participated in the care of the patient.: Yes I have reviewed all pertinent clinical information: Yes Notes (Text): patient has been complaining of right upper quadrant pain Previous ERCP pictures were reviewed no obvious large filling defect noticed status post removal of the stent CT scan done recently is more suggestive of stone Would request MRI with MRCP to further evaluate Doubt cholangitis Scheduled for ERCP on Tuesday03/11/18 23:58
[2018-03-11] MEDS: Piperacillin/Tazobact 3.375 gm 100 ML IVPB SCH ×2 (12:43→17:32)
[2018-03-11] MEDS ORDERED: Influenza Vaccine 60 mcg/0.5 mL SYR (4YR UP) IM ONE (13:00)
[2018-03-11] MEDS ORDERED: Pneumococcal 23-Valent Vaccine IM ONE (13:00)
[2018-03-11] MEDS: Pantoprazole 40 mg EC Tab PO SCH (17:32)
[2018-03-11] MEDS: Oxycodone/Acetaminophen 5/325 mg Tab PO PRN (17:36)
[2018-03-12] MEDS: Oxycodone/Acetaminophen 5/325 mg Tab PO PRN ×4 (01:34→23:57)
[2018-03-12 02:09] LABS: URINE APPEARANCE CLEAR (CLEAR); URINE BILIRUBIN NEGATIVE (NEGATIVE); URINE BLOOD NEGATIVE (NEGATIVE); URINE COLOR YELLOW (YELLOW); URINE GLUCOSE (UA) NEGATIVE (NEGATIVE); URINE LEUKOCYTE ESTERASE NEGATIVE Leu/uL (NEGATIVE); URINE PROTEIN TRACE mg/dL (<30 mg/dL)
[2018-03-12 02:21] LABS: URINE RBC 0 - 2 /hpf (0-2)
[2018-03-12 02:23] LABS: URINE BACTERIA FEW /hpf
[2018-03-12 07:57] LABS: BASO # 0.02 K/mm3 (0.0-2.0); BASO % 0.4 % (0.0-3.0); EOS # 0.1 (0.0-0.7); EOS % 1.6 % (1.5-5.0); LYMPH # 1.9 (1.2-3.4); LYMPH % 37.4 % (22.0-35.0); MEAN CELL VOLUME 93.9 fl (80.0-105.0); MEAN CORPUSCULAR HGB CONC 31.9 g/dl (31.0-37.0); MEAN PLATELET VOLUME 10.8 fl (7.0-11.0); MONO # 0.3 (0.1-0.6); MONO % 6.2 % (1.0-6.0); RBC 3.77 10^6/uL (3.5-6.1); RED CELL DISTRIBUTION WIDTH 13.2 % (11.5-14.5); WHITE BLOOD COUNT 5.2 10^3/uL (4.5-11.0)
[2018-03-12 08:00] LABS: HEMOGLOBIN 11.3 g/dL (12.0-16.0)
[2018-03-12 08:13] LABS: ALB/GLOB RATIO 1.1 (1.1-1.8); ALT/SGPT 24 U/L (7-56); AST/SGOT 14 U/L (14-36); BLOOD UREA NITROGEN 5 mg/dL (7-21); CALCIUM 8.4 mg/dL (8.4-10.5); GFR NON-AFRICAN AMERICAN > 60
[2018-03-12] MEDS: Pantoprazole 40 mg EC Tab PO SCH (09:36)
--- NOTE | 2018-03-12 12:07 | CP.PCM.PN ---
Subjective - Date & Time of Evaluation Date of Evaluation: 03/12/18 Time of Evaluation: 12:04 - Subjective Subjective: No clinical changes. Requesting food, but NPO for MRI. No acute overnight events. Afeb, HDS. Objective - Vital Signs/Intake and Output Vital Signs (last 24 hours): Temp Pulse Resp BP Pulse Ox 97.7 F 88 16 138/82 95 03/12/18 07:00 03/12/18 07:00 03/12/18 07:00 03/12/18 07:00 03/12/18 07:00 - Medications Medications: Current Medications Albuterol/Ipratropium (Duoneb 3 Mg/0.5 Mg (3 Ml) Ud) 3 ml IH Q8H PRN PRN Reason: Shortness of Breath Sodium Chloride (Sodium Chloride 0.9%) 1,000 mls @ 100 mls/hr IV .Q10H [facility] Last Admin: 03/11/18 08:45 Dose: 100 mls/hr Nicotine (Nicoderm Cq) 1 patch TD DAILY [facility] Last Admin: 03/12/18 09:35 Dose: 1 patch Ondansetron HCl (Zofran Inj) 4 mg IVP Q4H PRN PRN Reason: Nausea/Vomiting Last Admin: 03/11/18 17:37 Dose: 4 mg Oxycodone/Acetaminophen (Percocet 5/325 Mg Tab) 1 tab PO Q6H PRN PRN Reason: Pain, severe (8-10) Stop: 03/14/18 09:48 Last Admin: 03/12/18 10:26 Dose: 1 tab Pantoprazole Sodium (Protonix Ec Tab) 40 mg PO 0600 [facility] Last Admin: 03/12/18 09:36 Dose: 40 mg - Labs Labs: 03/12/18 07:30 03/12/18 07:30 - Constitutional Appears: Non-toxic, No Acute Distress - Head Exam Head Exam: ATRAUMATIC, NORMAL INSPECTION - Respiratory Exam Respiratory Exam: Clear to Ausculation Bilateral, NORMAL BREATHING PATTERN - Cardiovascular Exam Cardiovascular Exam: REGULAR RHYTHM, +S1, +S2 - GI/Abdominal Exam GI & Abdominal Exam: Soft, Normal Bowel Sounds. absent: Tenderness - Neurological Exam Neurological Exam: Alert, Awake, Oriented x3 - Psychiatric Exam Psychiatric exam: Normal Affect, Normal Mood - Skin Skin Exam: Normal Color, Warm Assessment and Plan - Assessment and Plan (Free Text) Assessment: #Choledocolithiasis, 11mm, non-obstruction #Persistent abdominal pain PLAN: -Chart reviewed, previous ERCP, cholecystectomy -CBD stone is non-obstructing, doubt acute cholangitis at this time. -ERCP Tuesday, consent in chart. -f/u MRCP results -Agree to continue Abx -f/u blood cultures -NPO PM Case discussed with Dr. Rosario. See attestation.
[2018-03-12] MEDS: Sodium Chloride 0.9% 1,000 ML IV SCH (15:33)
--- NOTE | 2018-03-12 15:55 | CP.PCM.PN ---
<Elisabeth Ma - Last Filed: 03/13/18 00:25> Subjective - Date & Time of Evaluation Date of Evaluation: 03/12/18 Time of Evaluation: 16:09 - Subjective Subjective: Elisabeth Ma, PGY-1 Medicine Progress Note for Dr. Michael: Pt was seen and examined this AM at bedside. Per nursing pt had no acute overnight events. Pt reports that she is hungry and has an appetite, but pt reminded that she is NPO for MRCP later today. Pt reports continued RUQ abd pain without real improvement. Pt has no other acute complaints at this time. She denies fevers, chills, SOB, cough, chest pain, palpitations, n/v, c/d, or dysuria. Objective - Vital Signs/Intake and Output Vital Signs (last 24 hours): Temp Pulse Resp BP Pulse Ox 97.7 F 88 16 138/82 95 03/12/18 07:00 03/12/18 07:00 03/12/18 07:00 03/12/18 07:00 03/12/18 07:00 - Medications Medications: Current Medications Albuterol/Ipratropium (Duoneb 3 Mg/0.5 Mg (3 Ml) Ud) 3 ml IH Q8H PRN PRN Reason: Shortness of Breath Sodium Chloride (Sodium Chloride 0.9%) 1,000 mls @ 100 mls/hr IV .Q10H [facility] Last Admin: 03/12/18 15:33 Dose: 100 mls/hr Nicotine (Nicoderm Cq) 1 patch TD DAILY [facility] Last Admin: 03/12/18 09:35 Dose: 1 patch Ondansetron HCl (Zofran Inj) 4 mg IVP Q4H PRN PRN Reason: Nausea/Vomiting Last Admin: 03/12/18 15:31 Dose: 4 mg Oxycodone/Acetaminophen (Percocet 5/325 Mg Tab) 1 tab PO Q6H PRN PRN Reason: Pain, severe (8-10) Stop: 03/14/18 09:48 Last Admin: 03/12/18 10:26 Dose: 1 tab Pantoprazole Sodium (Protonix Ec Tab) 40 mg PO 0600 [facility] Last Admin: 03/12/18 09:36 Dose: 40 mg - Labs Labs: 03/12/18 07:30 03/12/18 07:30 - Constitutional Appears: Non-toxic, No Acute Distress - Head Exam Head Exam: ATRAUMATIC, NORMAL INSPECTION, NORMOCEPHALIC - Eye Exam Eye Exam: EOMI, Normal appearance - Respiratory Exam Respiratory Exam: Clear to Ausculation Bilateral, NORMAL BREATHING PATTERN. absent: Accessory Muscle Use, Rhonchi, Wheezes, Respiratory Distress, Stridor - GI/Abdominal Exam GI & Abdominal Exam: Soft, Tenderness (present in RUQ with palpation), Normal Bowel Sounds. absent: Firm, Guarding, Rigid - Extremities Exam Extremities Exam: Normal Inspection. absent: Calf Tenderness, Pedal Edema - Back Exam Back Exam: NORMAL INSPECTION. absent: CVA tenderness (L), CVA tenderness (R) - Neurological Exam Neurological Exam: Alert, Awake, Oriented x3 - Psychiatric Exam Psychiatric exam: Normal Affect, Normal Mood - Skin Skin Exam: Dry, Normal Color, Warm Assessment and Plan - Assessment and Plan (Free Text) Assessment: Pt is a 52 yo F with pmhx of PUD, diverticulosis, choledocholithiasis (with sphincterotomy and biliary stent place on 02/01/18), cholecystectomy (02/06/18), gallstone pancreatitis (ERCP 02/17/18), and COPD, presents to the emergency department complaining of constant epigastric pain radiating to the right flank ever since the ERCP procedure. Pt NPO and MRCP scheduled for this afternoon. Plan: 1) RUQ abd pain - Likely 2/2 MRCP vs non-obstructing stone - CT Abd/pelvis: Prior cholecystectomy. Surgical changes of the common bile duct. Diffuse thickening of the common bile duct with minimal surrounding inflammatory fat stranding. Please evaluate to exclude ascending cholangitis. Minimal fat stranding adjacent to the pancreatic head and uncinate process. This can be reactive to an ascending cholangitis. The differential diagnoses includes minimal acute pancreatitis. Correlation with lipase values is suggested. No fluid collection or drainable abscess formation. - LFTs wnl, lipase wnl, T. bili wnl - GI consulted, Dr. Rosario - MRCP today - Blood cuture: (-) after 24 hours - Zofran 4mg IVP Q4 PRN - Percocet 5/325 q6 PRN - IVF: NS @ 100 mls/hr 2) Diarrhea - C. diff and fecal leukocyte: pending - Pt refusing to use hat for collection - NS @ 100 mls/hr 3) Hx of COPD - Duonebs Q8 PRN for SOB 4) Tobacco abuse disorder - Nicoderm daily - Educated patient on smoking cessation Prophylaxis: - DVT: SCD's - GI: Protonix 40mh PO QD Case discussed with Dr. Alec Ma, PGY-1 <Joby Michael - Last Filed: 03/20/18 13:45> Objective - Vital Signs/Intake and Output Vital Signs (last 24 hours): Temp Pulse Resp BP Pulse Ox 98.4 F 64 20 128/73 98 03/14/18 06:27 03/14/18 06:27 03/14/18 06:27 03/14/18 06:27 03/14/18 06:27 - Labs Labs: 03/14/18 06:40 03/14/18 06:40 Attending/Attestation - Attestation I have personally seen and examined this patient.: Yes I have fully participated in the care of the patient.: Yes I have reviewed all pertinent clinical information, including history, physical exam and plan: Yes Notes (Text): 03/20/18 13:44 Patient was seen and examined with medical liaison. 52 year old female, whose past medical history includes PUD, diverticulosis, choledocholithiasis (with sphincterotomy and biliary stent place on 02/01/18), cholecystectomy (02/06/18), gallstone pancreatitis (ERCP 02/17/18), and COPD, presents to the emergency department complaining of constant epigastric pain radiating to the right flank ever since the ERCP procedure.. She had ERCP for GS pancreatitis 02/20/18 and stent was removed along with a stone. LFT are normal. There is no fever .CT abdomen showed cystic duct dilatation, 11 mm calcified stone wall stone at the junction of cystic duct and common bile duct, Awaiting MRCP, GI is following.
--- NOTE | 2018-03-12 17:14 | MRI ---
Date of service: 03/12/2018 PROCEDURE: Magnetic Resonance Cholangiopancreatography HISTORY: COMPARISON: Comparison is made to the previous CT of the abdomen and pelvis dated 03/11/2018 previous ERCP images dated 02/20/2018 TECHNIQUE: Multiplanar, multisequence MR images of the abdomen were obtained, including heavily T2 weighted MRCP images of the biliary system. Rotating maximum intensity projection images of the biliary system were generated. FINDINGS: MRCP: There is mild dilatation of the common hepatic duct measures up to 10.1 millimeter. There is also dilated cystic duct measures 11.5 millimeter. There is choledocholithiasis measures 9.2 millimeter at or adjacent to the junction of the cystic and common hepatic duct in the proximal to midportion of the CBD noted. The distal CBD measures 6.6 millimeter. LIVER: Again seen is a cystic lesion at the left liver lobe measures 1.9 centimeter demonstrate hyperintense T2 signal and hypointense T1 signal. The liver is otherwise unremarkable. GALLBLADDER: Status post prior cholecystectomy. SPLEEN: The spleen is upper normal limit in size measures 11.5 centimeter. PANCREAS: Unremarkable. ADRENALS: Unremarkable. KIDNEYS: Unremarkable. AORTA: No aneurysm. ASCITES: None. OTHER FINDINGS: None. IMPRESSION: Findings suggestive of choledocholithiasis measures 9.2 millimeter in the transverse diameter seen at or adjacent to the junction of the cystic duct and common hepatic duct.
[2018-03-13] MEDS: Pantoprazole 40 mg EC Tab PO SCH (06:02)
[2018-03-13] MEDS: Sodium Chloride 0.9% 1,000 ML IV SCH (06:03)
[2018-03-13 06:54] LABS: BASO # 0.01 K/mm3 (0.0-2.0); BASO % 0.3 % (0.0-3.0); EOS # 0.1 (0.0-0.7); EOS % 1.4 % (1.5-5.0); LYMPH # 0.9 (1.2-3.4); LYMPH % 23.8 % (22.0-35.0); MEAN CELL VOLUME 92.3 fl (80.0-105.0); MEAN CORPUSCULAR HEMOGLOBIN 29.9 pg (25.0-35.0); MEAN CORPUSCULAR HGB CONC 32.4 g/dl (31.0-37.0); MEAN PLATELET VOLUME 10.7 fl (7.0-11.0); MONO # 0.3 (0.1-0.6); MONO % 9.4 % (1.0-6.0); RBC 4.01 10^6/uL (3.5-6.1); RED CELL DISTRIBUTION WIDTH 12.8 % (11.5-14.5); WHITE BLOOD COUNT 3.6 10^3/uL (4.5-11.0)
[2018-03-13 07:24] LABS: ALB/GLOB RATIO 1.1 (1.1-1.8); ALBUMIN 3.1 g/dL (3.0-4.8); ALT/SGPT 90 U/L (7-56); AST/SGOT 243 U/L (14-36); BLOOD UREA NITROGEN 3 mg/dL (7-21); CALCIUM 8.6 mg/dL (8.4-10.5); GFR NON-AFRICAN AMERICAN > 60
[2018-03-13] MEDS ORDERED: Potassium Chloride 20 mEq ER Tab PO STA (09:04)
[2018-03-13] MEDS: Oxycodone/Acetaminophen 5/325 mg Tab PO PRN (10:22)
--- NOTE | 2018-03-13 11:43 | CP.PCM.PN ---
<Jabari Mejias - Last Filed: 03/13/18 14:07> Subjective - Date & Time of Evaluation Date of Evaluation: 03/13/18 Time of Evaluation: 07:40 - Subjective Subjective: Jabari Mejias DO, PGY-1 Hospitalist Progress Note for Dr. Rico Patient was seen and examined at bedside this AM. She reports her RUQ abdominal pain is slightly improved from admission but is persistent. She also reports intermittent nausea and chills but denies fever, CP, SOB, cough, vomiting, diarrhea, or urinary symptoms. Objective - Vital Signs/Intake and Output Vital Signs (last 24 hours): Temp Pulse Resp BP Pulse Ox 98.1 F 72 20 145/85 94 L 03/13/18 06:00 03/13/18 06:00 03/13/18 06:00 03/13/18 06:00 03/13/18 06:00 - Medications Medications: Current Medications Albuterol/Ipratropium (Duoneb 3 Mg/0.5 Mg (3 Ml) Ud) 3 ml IH Q8H PRN PRN Reason: Shortness of Breath Sodium Chloride (Sodium Chloride 0.9%) 1,000 mls @ 100 mls/hr IV .Q10H [facility] Last Admin: 03/13/18 06:03 Dose: 100 mls/hr Potassium Chloride (Potassium Chloride 10 Meq/100 Ml) 10 meq in 100 mls @ 50 mls/hr IVPB Q2H [facility] Stop: 03/13/18 13:14 Last Admin: 03/13/18 09:47 Dose: 50 mls/hr Nicotine (Nicoderm Cq) 1 patch TD DAILY [facility] Last Admin: 03/13/18 09:47 Dose: 1 patch Ondansetron HCl (Zofran Inj) 4 mg IVP Q4H PRN PRN Reason: Nausea/Vomiting Last Admin: 03/13/18 09:58 Dose: 4 mg Oxycodone/Acetaminophen (Percocet 5/325 Mg Tab) 1 tab PO Q6H PRN PRN Reason: Pain, severe (8-10) Stop: 03/14/18 09:48 Last Admin: 03/13/18 10:22 Dose: 1 tab Pantoprazole Sodium (Protonix Ec Tab) 40 mg PO 0600 [facility] Last Admin: 03/13/18 06:02 Dose: Not Given - Labs Labs: 03/13/18 06:30 03/13/18 06:30 - Constitutional Appears: Non-toxic, No Acute Distress - Head Exam Head Exam: ATRAUMATIC, NORMOCEPHALIC - Eye Exam Eye Exam: EOMI, Normal appearance, PERRL - ENT Exam ENT Exam: Mucous Membranes Moist - Neck Exam Neck Exam: Full ROM, Normal Inspection - Respiratory Exam Respiratory Exam: Clear to Ausculation Bilateral, NORMAL BREATHING PATTERN. absent: Rales, Rhonchi, Wheezes - Cardiovascular Exam Cardiovascular Exam: REGULAR RHYTHM, RRR, +S1, +S2. absent: Gallop, Rubs, Murmur - GI/Abdominal Exam GI & Abdominal Exam: Soft, Normal Bowel Sounds. absent: Tenderness - Extremities Exam Extremities Exam: Normal Inspection. absent: Pedal Edema - Back Exam Back Exam: NORMAL INSPECTION - Neurological Exam Neurological Exam: Alert, Awake, Oriented x3 - Psychiatric Exam Psychiatric exam: Normal Affect, Normal Mood - Skin Skin Exam: Dry, Intact, Warm Assessment and Plan - Assessment and Plan (Free Text) Assessment: 52 yo F with PMH of PUD, diverticulosis, and choledocholithiasis (sphincterotomy and biliary stent placement 01/2018 and ERCP on 02/17/18) presented with worsening RUQ pain found to have choledocholithiasis on MRCP. Plan: Choledocholithiasis Tbili and LFTs increased this AM, continue to monitor Plan for repeat ERCP today per GI recs Tolerated soft diet yesterday without nausea/vomiting NPO until after ERCP Await further GI recs regarding diet Received one dose of zosyn in ED, will continue ID consult placed for further antibiotics recs GI following, recs appreciated Hypokalemia Replaced with IV KCl DVT/GI PPX: SCDs/protonix Full Code HHD Monitor on med/surg Patient seen, examined, and plan discussed with my attending Dr. Trisha Mejias D.O. IM Resident PGY-1 Pager: [phone] <Rojelio Rico - Last Filed: 03/13/18 14:19> Objective - Vital Signs/Intake and Output Vital Signs (last 24 hours): Temp Pulse Resp BP Pulse Ox 98.1 F 72 20 145/85 94 L 03/13/18 06:00 03/13/18 06:00 03/13/18 06:00 03/13/18 06:00 03/13/18 06:00 - Medications Medications: Current Medications Albuterol/Ipratropium (Duoneb 3 Mg/0.5 Mg (3 Ml) Ud) 3 ml IH Q8H PRN PRN Reason: Shortness of Breath Sodium Chloride (Sodium Chloride 0.9%) 1,000 mls @ 100 mls/hr IV .Q10H [facility] Last Admin: 03/13/18 06:03 Dose: 100 mls/hr Piperacillin Sod/Tazobactam Sod (Zosyn 3.375 In Ns 100ml) 100 mls @ 25 mls/hr IVPB Q8 [facility]; Protocol Stop: 03/15/18 17:59 Sodium Chloride (Sodium Chloride 0.9%) 1,000 mls @ 75 mls/hr IV .[id number] [facility] Stop: 03/13/18 16:16 Nicotine (Nicoderm Cq) 1 patch TD DAILY [facility] Last Admin: 03/13/18 09:47 Dose: 1 patch Ondansetron HCl (Zofran Inj) 4 mg IVP Q4H PRN PRN Reason: Nausea/Vomiting Last Admin: 03/13/18 09:58 Dose: 4 mg Oxycodone/Acetaminophen (Percocet 5/325 Mg Tab) 1 tab PO Q6H PRN PRN Reason: Pain, severe (8-10) Stop: 03/14/18 09:48 Last Admin: 03/13/18 10:22 Dose: 1 tab Pantoprazole Sodium (Protonix Ec Tab) 40 mg PO 0600 [facility] Last Admin: 03/13/18 06:02 Dose: Not Given - Labs Labs: 03/13/18 06:30 03/13/18 06:30 Attending/Attestation - Attestation I have personally seen and examined this patient.: Yes I have fully participated in the care of the patient.: Yes I have reviewed all pertinent clinical information, including history, physical exam and plan: Yes Notes (Text): 03/13/18 14:12 52 year old female with past medical history of PUD, diverticulosis and choledocholithiasis s/p ERCP s/p sphincterotomy and s/p biliary stent placement who presented with persistent RUQ pain. CT abd/pelvis showed dilated cystic duct and common hepatic duct; 11 mm calcified wall stone noted at the junction of the cystic duct and common biliary duct likely resulting in mild / partial obstruction with mild diffuse enhancement and thickening of the extrahepatic biliary ducts; correlate clinically for cholangitis. Although this is less likely with no fever or leukocytosis. LFTs today however are elevated. She is on iv antibiotics. MRCP reviewed showing choledocholithiasis. GI is following and plan is for ERCP today. Will replete and repeat potassium. Rojelio Rico MD Hospitalist.
[2018-03-13] MEDS ORDERED: Indomethacin 50 MG Suppository PR ONE (13:59)
[2018-03-13] MEDS ORDERED: Sodium Chloride 0.9% 1,000 ML IV SCH (14:15)
[2018-03-13] MEDS ORDERED: Propofol 10 mg/ml Inj (20 ML) ONE (15:17)
[2018-03-13] MEDS ORDERED: Midazolam 2 MG/2 ML VIAL ONE (15:18)
[2018-03-13] MEDS ORDERED: Rocuronium 10 mg/ml (5 ml) ONE (15:18)
[2018-03-13] MEDS: Piperacillin/Tazobact 3.375 gm 100 ML IVPB SCH ×2 (15:45→21:21)
[2018-03-13] MEDS ORDERED: Neostigmine Methylsulfate 3mg/3ml Syringe IV ONE (18:18)
[2018-03-13] MEDS ORDERED: Glycopyrrolate 0.2 mg/ml (2ml vial) ONE (19:01)
[2018-03-13 23:13] VITALS: TEMP 98.4
[2018-03-14] MEDS: Piperacillin/Tazobact 3.375 gm 100 ML IVPB SCH (04:59)
[2018-03-14] MEDS: Pantoprazole 40 mg EC Tab PO SCH (04:59)
[2018-03-14 07:17] LABS: BASO # 0.01 K/mm3 (0.0-2.0); BASO % 0.2 % (0.0-3.0); EOS % 0.6 % (1.5-5.0); LYMPH # 1.4 (1.2-3.4); MEAN CELL VOLUME 92.5 fl (80.0-105.0); MEAN CORPUSCULAR HEMOGLOBIN 29.9 pg (25.0-35.0); MEAN CORPUSCULAR HGB CONC 32.3 g/dl (31.0-37.0); MEAN PLATELET VOLUME 10.8 fl (7.0-11.0); MONO # 0.3 (0.1-0.6); MONO % 5.4 % (1.0-6.0); RBC 4.01 10^6/uL (3.5-6.1); RED CELL DISTRIBUTION WIDTH 12.9 % (11.5-14.5); WHITE BLOOD COUNT 5.4 10^3/uL (4.5-11.0)
[2018-03-14 07:31] LABS: ALB/GLOB RATIO 1.1 (1.1-1.8); ALT/SGPT 78 U/L (7-56); AST/SGOT 111 U/L (14-36); BLOOD UREA NITROGEN 4 mg/dL (7-21); CALCIUM 8.5 mg/dL (8.4-10.5); GFR NON-AFRICAN AMERICAN > 60
[2018-03-14 09:28] VITALS: BP 128/73; PULSE 64; RESP 20; O2SAT 98
--- NOTE | 2018-03-14 10:33 | CP.PCM.CON ---
<Zaheer Linda - Last Filed: 03/14/18 13:51> History of Present Illness - History of Present Illness History of Present Illness: ID Consult Note 52 year old female with past medical history of PUD, diverticulosis, choledocholithiasis, cholecystectomy, gallstone pancreatitis, and COPD who i nitially presented to the hospital for epigastric pain. Patient was found to have dilated CBD on CT abdomen pelvis. Follow up MRCP demonstrated 11 mm stone in the CBD. Patient underwent ERCP to remove stone. Patient admits to improvement in pain since procedure. Denies chest pain, shortness pain, sh ortness of breath, nausea, vomiting, diarrhea, fever, chills. Medical Hx: PUD, diverticulosis, choledocholithiasis, cholecystectomy, gallstone pancreatitis, and COPD Surgical hx: Cholecystectomy Medications: Reviewed, as per MAR Allergies: NKDA Social hx: 1 ppd x 37 years, denies etoh or illicit drug use Family hx: DM, lung cancer Review of Systems - Review of Systems Review of Systems: 12 point ROS as per HPI, otherwise negative Past Patient History - Infectious Disease Hx of Infectious Diseases: None - Tetanus Immunizations Tetanus Immunization: Unknown - Past Social History Smoking Status: Heavy Smoker > 10 Cigarettes Daily - CARDIAC Hx Pacemaker: No - PULMONARY Hx Chronic Obstructive Pulmonary Disease (COPD): Yes - NEUROLOGICAL Hx Paralysis: No - HEENT Hx HEENT Problems: No - RENAL Hx Chronic Kidney Disease: No - ENDOCRINE/METABOLIC Hx Endocrine Disorders: No - HEMATOLOGICAL/ONCOLOGICAL Hx Blood Transfusions: No Hx Blood Transfusion Reaction: No - INTEGUMENTARY Hx Dermatological Problems: No - MUSCULOSKELETAL/RHEUMATOLOGICAL Hx Musculoskeletal Disorders: No - GASTROINTESTINAL Other/Comment: SBO - GENITOURINARY/GYNECOLOGICAL Hx Genitourinary Disorders: No - PSYCHIATRIC Hx Emotional Abuse: No Hx Physical Abuse: No Hx Substance Use: No - SURGICAL HISTORY Hx Surgeries: Yes (GB) - ANESTHESIA Hx Anesthesia Reactions: Yes (VOMITING,DIZZINESS) Hx Malignant Hyperthermia: No Meds Home Medications: Home Medication List Medication Instructions Recorded Confirmed Type Levofloxacin [Levaquin] 500 mg PO DAILY #3 tablet 03/14/18 Rx RX: Omeprazole 40 mg PO DAILY #30 tablet. 03/14/18 Rx RX: Ursodiol 250 mg PO BID #60 tablet 03/14/18 Rx Allergies/Adverse Reactions: Allergies Allergy/AdvReac Type Severity Reaction Status Date / Time No Known Allergies Allergy Verified 03/10/18 23:38 - Medications Medications: Current Medications Albuterol/Ipratropium (Duoneb 3 Mg/0.5 Mg (3 Ml) Ud) 3 ml IH Q8H PRN PRN Reason: Shortness of Breath Sodium Chloride (Sodium Chloride 0.9%) 1,000 mls @ 100 mls/hr IV .Q10H [facility] Last Admin: 03/13/18 06:03 Dose: 100 mls/hr Piperacillin Sod/Tazobactam Sod (Zosyn 3.375 In Ns 100ml) 100 mls @ 25 mls/hr IVPB Q8 [facility]; Protocol Stop: 03/20/18 14:01 Last Admin: 03/14/18 04:59 Dose: 25 mls/hr Nicotine (Nicoderm Cq) 1 patch TD DAILY [facility] Last Admin: 03/14/18 09:38 Dose: 1 patch Ondansetron HCl (Zofran Inj) 4 mg IVP Q4H PRN PRN Reason: Nausea/Vomiting Last Admin: 03/13/18 09:58 Dose: 4 mg Pantoprazole Sodium (Protonix Ec Tab) 40 mg PO 0600 [facility] Last Admin: 03/14/18 04:59 Dose: 40 mg Physical Exam - Constitutional Appears: Non-toxic, No Acute Distress - Head Exam Head Exam: ATRAUMATIC, NORMAL INSPECTION, NORMOCEPHALIC - ENT Exam ENT Exam: Mucous Membranes Moist - Respiratory Exam Respiratory Exam: Clear to Auscultation Bilateral, NORMAL BREATHING PATTERN - Cardiovascular Exam Cardiovascular Exam: RRR, +S1, +S2 - GI/Abdominal Exam GI & Abdominal Exam: Normal Bowel Sounds, Soft, Tenderness (Mild RUQ) - Extremities Exam Extremities exam: Positive for: normal inspection. Negative for: pedal edema - Neurological Exam Neurological exam: Alert, CN II-XII Intact, Oriented x3 - Psychiatric Exam Psychiatric exam: Normal Affect, Normal Mood - Skin Skin Exam: Dry, Intact, Warm Results - Vital Signs Recent Vital Signs: Last Vital Signs Temp 98.4 F 03/14/18 06:27 Pulse 64 03/14/18 06:27 Resp 20 03/14/18 06:27 BP 128/73 03/14/18 06:27 Pulse Ox 98 03/14/18 06:27 - Labs Result Diagrams: 03/14/18 06:40 03/14/18 06:40 Labs: Laboratory Results - last 24 hr 03/14/18 03/14/18 06:40 06:40 WBC 5.4 D RBC 4.01 Hgb 12.0 Hct 37.1 MCV 92.5 MCH 29.9 MCHC 32.3 RDW 12.9 Plt Count 187 MPV 10.8 Neut % (Auto) 68.8 H Lymph % (Auto) 25.0 [place]ois % (Auto) 5.4 Eos % (Auto) 0.6 L Baso % (Auto) 0.2 Lymph # (Auto) 1.4 [place] # (Auto) 0.3 Eos # (Auto) 0.0 Baso # (Auto) 0.01 Absolute Neuts (auto) 3.73 Sodium 136 Potassium 3.6 Chloride 108 H Carbon Dioxide 21 Anion Gap 11 BUN 4 L Creatinine 0.6 L Est GFR ( Amer) > 60 Est GFR (Non-Af Amer) > 60 Random Glucose 50 L Calcium 8.5 Phosphorus 3.6 Magnesium 1.7 Total Bilirubin 0.7 AST 111 H D ALT 78 H Alkaline Phosphatase 118 Total Protein 5.7 L Albumin 3.0 Globulin 2.7 Albumin/Globulin Ratio 1.1 Assessment & Plan - Assessment and Plan (Free Text) Plan: Choledocolithiasis s/p ERCP with Stent placement and stone removal Hx of PUD Hx of Diverticulosis Hx of gallstone pancreatitis Hx of cholecystectomy Plan No evidence of acute infection Stop Zosyn after today Continue to monitor off of antibiotics Blood cultures negative Bhagwandin, PGY-3 <Mata Bernabe S - Last Filed: 03/14/18 14:17> Results - Vital Signs Recent Vital Signs: Last Vital Signs Temp 98.4 F 03/14/18 06:27 Pulse 64 03/14/18 06:27 Resp 20 03/14/18 06:27 BP 128/73 03/14/18 06:27 Pulse Ox 98 03/14/18 06:27 - Labs Result Diagrams: 03/14/18 06:40 03/14/18 06:40 Labs: Laboratory Results - last 24 hr 03/14/18 03/14/18 06:40 06:40 WBC 5.4 D RBC 4.01 Hgb 12.0 Hct 37.1 MCV 92.5 MCH 29.9 MCHC 32.3 RDW 12.9 Plt Count 187 MPV 10.8 Neut % (Auto) 68.8 H Lymph % (Auto) 25.0 [place]quois % (Auto) 5.4 Eos % (Auto) 0.6 L Baso % (Auto) 0.2 Lymph # (Auto) 1.4 [place]ois # (Auto) 0.3 Eos # (Auto) 0.0 Baso # (Auto) 0.01 Absolute Neuts (auto) 3.73 Sodium 136 Potassium 3.6 Chloride 108 H Carbon Dioxide 21 Anion Gap 11 BUN 4 L Creatinine 0.6 L Est GFR ( Amer) > 60 Est GFR (Non-Af Amer) > 60 Random Glucose 50 L Calcium 8.5 Phosphorus 3.6 Magnesium 1.7 Total Bilirubin 0.7 AST 111 H D ALT 78 H Alkaline Phosphatase 118 Total Protein 5.7 L Albumin 3.0 Globulin 2.7 Albumin/Globulin Ratio 1.1 Assessment & Plan - Assessment and Plan (Free Text) Plan: Infectious diseases Attending Physician Attestation Patient seen and examined, discussed with biomedical engineering director. I have reviewed the patient's history of present illness, past medical, social, personal and family histories, pertinent physical exam findings, course so far in this hospital admission, pertinent laboratory and imaging results. I agree with the above findings, assessment and plan. In addition, patient on Zosyn for choledocholelithiasis S/P ERCP, stone removal and stent placement. Patient to be followed by GI as outpatient and can be switched to short course of PO antibiotics prior to GI follow up as outpatient.
--- NOTE | 2018-03-14 10:45 | CP.PCM.PN ---
Subjective - Date & Time of Evaluation Date of Evaluation: 03/14/18 Time of Evaluation: 10:41 - Subjective Subjective: GI Progress Note for Dr. Rosario Patient seen and examined at bedside. No acute overnight events. Patient states that abdominal pain is much improved and only soreness is left. Patient is tolerating diet and passing flatus. Patient denies CP, SOB, n/v/d, abdominal pain, fever, chills, GERMAN, or dizziness. Objective - Vital Signs/Intake and Output Vital Signs (last 24 hours): Temp Pulse Resp BP Pulse Ox 98.4 F 64 20 128/73 98 03/14/18 06:27 03/14/18 06:27 03/14/18 06:27 03/14/18 06:27 03/14/18 06:27 - Medications Medications: Current Medications Albuterol/Ipratropium (Duoneb 3 Mg/0.5 Mg (3 Ml) Ud) 3 ml IH Q8H PRN PRN Reason: Shortness of Breath Sodium Chloride (Sodium Chloride 0.9%) 1,000 mls @ 100 mls/hr IV .Q10H [facility] Last Admin: 03/13/18 06:03 Dose: 100 mls/hr Piperacillin Sod/Tazobactam Sod (Zosyn 3.375 In Ns 100ml) 100 mls @ 25 mls/hr IVPB Q8 [facility]; Protocol Stop: 03/20/18 14:01 Last Admin: 03/14/18 04:59 Dose: 25 mls/hr Nicotine (Nicoderm Cq) 1 patch TD DAILY [facility] Last Admin: 03/14/18 09:38 Dose: 1 patch Ondansetron HCl (Zofran Inj) 4 mg IVP Q4H PRN PRN Reason: Nausea/Vomiting Last Admin: 03/13/18 09:58 Dose: 4 mg Pantoprazole Sodium (Protonix Ec Tab) 40 mg PO 0600 [facility] Last Admin: 03/14/18 04:59 Dose: 40 mg - Labs Labs: 03/14/18 06:40 03/14/18 06:40 - Constitutional Appears: No Acute Distress - Head Exam Head Exam: NORMAL INSPECTION - Eye Exam Eye Exam: Normal appearance Pupil Exam: NORMAL ACCOMODATION - ENT Exam ENT Exam: Mucous Membranes Moist, Normal Exam - Neck Exam Neck Exam: Normal Inspection - Respiratory Exam Respiratory Exam: Clear to Ausculation Bilateral. absent: Rales, Rhonchi, Wheezes - Cardiovascular Exam Cardiovascular Exam: RRR, +S1, +S2. absent: Gallop, Rubs, Murmur - GI/Abdominal Exam GI & Abdominal Exam: Soft. absent: Distended, Guarding, Tenderness, Rebound - Extremities Exam Extremities Exam: Normal Inspection - Back Exam Back Exam: NORMAL INSPECTION - Neurological Exam Neurological Exam: Alert, Awake, Oriented x3 - Psychiatric Exam Psychiatric exam: Normal Affect, Normal Mood - Skin Skin Exam: Normal Color, Warm Assessment and Plan - Assessment and Plan (Free Text) Assessment: 1. Choledocolithiasis s/p ERCP with stone removal and stent placement 2. Abdominal Pain, resolved Plan: - Clear for DC from GI standpoint - Recommend d/c with Ursodiol and 3 days of Levaquin - Follow up with Dr. Rosario in office next week - Resume home medications - Diet as tolerated Case discussed with Dr. Rosario. See attestation. Gaurav Brandon, PGY2
--- NOTE | 2018-03-14 16:25 | CP.PCM.DIS ---
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 Referral Routine Comment: Physician Instructions: Reason For Exam: eval Respiratory Therapy Referral Routine Comment: smoker Physician Instructions: Reason For Exam: eval Transition In Care/Readmission Reduction Routine Comment: Physician Instructions: Reason For Exam: eval 03/13/18 13:41 Infectious Disease Consult Routine Comment: Consulting Provider: Mata Bernabe Consulting Physician: Mata Bernabe Reason for Consult: choledocholithiasis Time Spent in preparation of Discharge (in minutes): 40 Diagnosis - Discharge Diagnosis (1) Choledocholithiasis Status: Resolved (2) Right upper quadrant abdominal pain Status: Resolved Hospital Course - Lab Results Lab Results: Micro Results 03/11/18 04:39 Blood-Venous Blood Culture - Preliminary NO GROWTH AFTER 3 DAYS 03/11/18 04:39 Blood-Venous Blood Culture - Preliminary NO GROWTH AFTER 3 DAYS Most Recent Lab Values WBC 5.4 10^3/uL (4.5-11.0) D 03/14/18 06:40 RBC 4.01 10^6/uL (3.5-6.1) 03/14/18 06:40 Hgb 12.0 g/dL (12.0-16.0) 03/14/18 06:40 Hct 37.1 % (36.0-48.0) 03/14/18 06:40 MCV 92.5 fl (80.0-105.0) 03/14/18 06:40 MCH 29.9 pg (25.0-35.0) 03/14/18 06:40 MCHC 32.3 g/dl (31.0-37.0) 03/14/18 06:40 RDW 12.9 % (11.5-14.5) 03/14/18 06:40 Plt Count 187 10^3/uL (120.0-450.0) 03/14/18 06:40 MPV 10.8 fl (7.0-11.0) 03/14/18 06:40 Neut % (Auto) 68.8 % (50.0-68.0) H 03/14/18 06:40 Lymph % (Auto) 25.0 % (22.0-35.0) 03/14/18 06:40 Creek % (Auto) 5.4 % (1.0-6.0) 03/14/18 06:40 Eos % (Auto) 0.6 % (1.5-5.0) L 03/14/18 06:40 Baso % (Auto) 0.2 % (0.0-3.0) 03/14/18 06:40 Lymph # (Auto) 1.4 (1.2-3.4) 03/14/18 06:40 Creek # (Auto) 0.3 (0.1-0.6) 03/14/18 06:40 Eos # (Auto) 0.0 (0.0-0.7) 03/14/18 06:40 Baso # (Auto) 0.01 K/mm3 (0.0-2.0) 03/14/18 06:40 Absolute Neuts (auto) 3.73 (1.4-6.5) 03/14/18 06:40 Sodium 136 mmol/L (132-148) 03/14/18 06:40 Potassium 3.6 mmol/L (3.6-5.0) 03/14/18 06:40 Chloride 108 mmol/L (98-107) H 03/14/18 06:40 Carbon Dioxide 21 mmol/L (21-33) 03/14/18 06:40 Anion Gap 11 (10-20) 03/14/18 06:40 BUN 4 mg/dL (7-21) L 03/14/18 06:40 Creatinine 0.6 mg/dl (0.7-1.2) L 03/14/18 06:40 Est GFR ( Amer) > 60 03/14/18 06:40 Est GFR (Non-Af Amer) > 60 03/14/18 06:40 Random Glucose 50 mg/dL (70-110) L 03/14/18 06:40 Calcium 8.5 mg/dL (8.4-10.5) 03/14/18 06:40 Phosphorus 3.6 mg/dL (2.5-4.5) 03/14/18 06:40 Magnesium 1.7 mg/dL (1.7-2.2) 03/14/18 06:40 Total Bilirubin 0.7 mg/dL (0.2-1.3) 03/14/18 06:40 AST 111 U/L (14-36) H D 03/14/18 06:40 ALT 78 U/L (7-56) H 03/14/18 06:40 Alkaline Phosphatase 118 U/L (38-126) 03/14/18 06:40 Total Protein 5.7 g/dL (5.8-8.3) L 03/14/18 06:40 Albumin 3.0 g/dL (3.0-4.8) 03/14/18 06:40 Globulin 2.7 gm/dL 03/14/18 06:40 Albumin/Globulin Ratio 1.1 (1.1-1.8) 03/14/18 06:40 Lipase 70 U/L (23-300) 03/11/18 00:30 Urine Color Yellow (YELLOW) 03/12/18 02:00 Urine Appearance Clear (CLEAR) 03/12/18 02:00 Urine pH 6.0 (4.7-8.0) 03/12/18 02:00 Ur Specific [place] >= 1.030 (1.005-1.035) 03/12/18 02:00 Urine Protein Trace mg/dL (<30 mg/dL) H 03/12/18 02:00 Urine Glucose (UA) Negative mg/dL (NEGATIVE) 03/12/18 02:00 Urine Ketones Negative mg/dL (NEGATIVE) 03/12/18 02:00 Urine Blood Negative (NEGATIVE) 03/12/18 02:00 Urine Nitrate Negative (NEGATIVE) 03/12/18 02:00 Urine Bilirubin Negative (NEGATIVE) 03/12/18 02:00 Urine Urobilinogen 1.0 E.U./dL (<1 E.U./dL) H 03/12/18 02:00 Ur Leukocyte Esterase Negative Jihan/uL (NEGATIVE) 03/12/18 02:00 Urine RBC 0 - 2 /hpf (0-2) 03/12/18 02:00 Urine WBC 1 - 3 /hpf (0-6) 03/12/18 02:00 Ur Epithelial Cells 10 - 12 /hpf (0-5) H 03/12/18 02:00 Urine Bacteria Few /hpf (NONE) 03/12/18 02:00 - Hospital Course Hospital Course: Jabari Mejias DO, PGY-1 Hospitalist Discharge Summary for Dr. Rico Ms. العلي is a 52 year old female with PMH of PUD, diverticulosis, and choledocholithiasis (sphincterotomy and biliary stent placement 01/2018 and ERCP on 02/17/18) presented with worsening RUQ pain found to have choledocholithiasis on MRCP. Dilated cystic duct and stone in the CBD were similarly visualized on CTAP, including signs concerning for cholangitis. She received a dose of zosyn in ED and was continued on zosyn through the course of her hospital stay. It was also noted that her AST/ALT and Tbili were elevated. Given these findings, she was evaluated by GI shortly after admission and underwent ERCP with stone removal and stent placement yesterday. This AM, she states her RUQ pain has resolved. She was able to tolerate a liquid diet last night after the procedure and tolerated a soft diet without nausea/vomiting this AM. She has been cleared for discharge by GI team and has an appointment to follow up with Dr. Rosario in office next week. She was discharged on levaquin 500 mg daily for 3 days, and she was given refills of urosodiol per GI request. Discharge plan, including antibiotic and continuing to take urosodiol were discussed with patient. Prescriptions were sent to her preferred [facility] pharmacy. All questions were answered. Patient seen, examined, and discharge plan discussed with my attending Dr. Trisha Mejias DO IM Resident PGY-1 Discharge Exam - Head Exam Head Exam: ATRAUMATIC, NORMAL INSPECTION, NORMOCEPHALIC - Eye Exam Eye Exam: EOMI, Normal appearance, PERRL - ENT Exam ENT Exam: Mucous Membranes Moist - Neck Exam Neck exam: Full Rom, Normal Inspection - Respiratory Exam Respiratory Exam: Clear to PA & Lateral, NORMAL BREATHING PATTERN, UNREMARKABLE. absent: Rales, Rhonchi, Wheezes - Cardiovascular Exam Cardiovascular Exam: REGULAR RHYTHM, RRR, +S1, +S2. absent: Diastolic murmur, Gallop, Rubs, Systolic Murmur - GI/Abdominal Exam GI & Abdominal Exam: Normal Bowel Sounds, Soft, Unremarkable. absent: Tenderness - Extremities Exam Extremities exam: normal capillary refill, normal inspection - Back Exam Back exam: NORMAL INSPECTION - Neurological Exam Neurological exam: Alert, Oriented x3 - Psychiatric Exam Psychiatric exam: Normal Affect, Normal Mood - Skin Skin Exam: Dry, Intact, Warm Discharge Plan - Discharge Medications Prescriptions: Levofloxacin [Levaquin] 500 mg PO DAILY #3 tablet Omeprazole 40 mg PO DAILY #30 tablet. Ursodiol 250 mg PO BID #60 tablet - Follow Up Plan Condition: GOOD Disposition: HOME/ ROUTINE Instructions: Gallstones (DC), Cholecystitis (DC), Cholecystitis (GEN) Additional Instructions: Please follow up with Dr. Rosario in his office next week Please continue to take ursodiol as Dr. Rosario has directed you Please take the antibiotic prescribed to you for 3 days If your abdominal pain returns and/or gets worse, please return to nearest ED Thank you for allowing us to care for you during your visit Referrals: Rodney Vega MD [Primary Care Provider] - <Rojelio Rico - Last Filed: 03/14/18 16:52> Provider - Provider Date of Admission: 03/11/18 04:24 Attending physician: Rojelio Rico MD Primary care physician: Rodney Vega MD Consults: 03/11/18 04:30 Consult [Physician Consult] Routine Comment: Consulting Provider: Michelle Rosario V Consulting Physician: Michelle Rosario V Reason for Consult: cholangitis 03/11/18 13:00 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 Core Measures Referral Routine Comment: Physician Instructions: Reason For Exam: eval Respiratory Therapy Referral Routine Comment: smoker Physician Instructions: Reason For Exam: eval Transition In Care/Readmission Reduction Routine Comment: Physician Instructions: Reason For Exam: eval 03/13/18 13:41 Infectious Disease Consult Routine Comment: Consulting Provider: Mata Bernabe Consulting Physician: Mata Bernabe Reason for Consult: choledocholithiasis Hospital Course - Lab Results Lab Results: Micro Results 03/11/18 04:39 Blood-Venous Blood Culture - Preliminary NO GROWTH AFTER 3 DAYS 03/11/18 04:39 Blood-Venous Blood Culture - Preliminary NO GROWTH AFTER 3 DAYS Most Recent Lab Values WBC 5.4 10^3/uL (4.5-11.0) D 03/14/18 06:40 RBC 4.01 10^6/uL (3.5-6.1) 03/14/18 06:40 Hgb 12.0 g/dL (12.0-16.0) 03/14/18 06:40 Hct 37.1 % (36.0-48.0) 03/14/18 06:40 MCV 92.5 fl (80.0-105.0) 03/14/18 06:40 MCH 29.9 pg (25.0-35.0) 03/14/18 06:40 MCHC 32.3 g/dl (31.0-37.0) 03/14/18 06:40 RDW 12.9 % (11.5-14.5) 03/14/18 06:40 Plt Count 187 10^3/uL (120.0-450.0) 03/14/18 06:40 MPV 10.8 fl (7.0-11.0) 03/14/18 06:40 Neut % (Auto) 68.8 % (50.0-68.0) H 03/14/18 06:40 Lymph % (Auto) 25.0 % (22.0-35.0) 03/14/18 06:40 Creek % (Auto) 5.4 % (1.0-6.0) 03/14/18 06:40 Eos % (Auto) 0.6 % (1.5-5.0) L 03/14/18 06:40 Baso % (Auto) 0.2 % (0.0-3.0) 03/14/18 06:40 Lymph # (Auto) 1.4 (1.2-3.4) 03/14/18 06:40 Creek # (Auto) 0.3 (0.1-0.6) 03/14/18 06:40 Eos # (Auto) 0.0 (0.0-0.7) 03/14/18 06:40 Baso # (Auto) 0.01 K/mm3 (0.0-2.0) 03/14/18 06:40 Absolute Neuts (auto) 3.73 (1.4-6.5) 03/14/18 06:40 Sodium 136 mmol/L (132-148) 03/14/18 06:40 Potassium 3.6 mmol/L (3.6-5.0) 03/14/18 06:40 Chloride 108 mmol/L (98-107) H 03/14/18 06:40 Carbon Dioxide 21 mmol/L (21-33) 03/14/18 06:40 Anion Gap 11 (10-20) 03/14/18 06:40 BUN 4 mg/dL (7-21) L 03/14/18 06:40 Creatinine 0.6 mg/dl (0.7-1.2) L 03/14/18 06:40 Est GFR ( Amer) > 60 03/14/18 06:40 Est GFR (Non-Af Amer) > 60 03/14/18 06:40 Random Glucose 50 mg/dL (70-110) L 03/14/18 06:40 Calcium 8.5 mg/dL (8.4-10.5) 03/14/18 06:40 Phosphorus 3.6 mg/dL (2.5-4.5) 03/14/18 06:40 Magnesium 1.7 mg/dL (1.7-2.2) 03/14/18 06:40 Total Bilirubin 0.7 mg/dL (0.2-1.3) 03/14/18 06:40 AST 111 U/L (14-36) H D 03/14/18 06:40 ALT 78 U/L (7-56) H 03/14/18 06:40 Alkaline Phosphatase 118 U/L (38-126) 03/14/18 06:40 Total Protein 5.7 g/dL (5.8-8.3) L 03/14/18 06:40 Albumin 3.0 g/dL (3.0-4.8) 03/14/18 06:40 Globulin 2.7 gm/dL 03/14/18 06:40 Albumin/Globulin Ratio 1.1 (1.1-1.8) 03/14/18 06:40 Lipase 70 U/L (23-300) 03/11/18 00:30 Urine Color Yellow (YELLOW) 03/12/18 02:00 Urine Appearance Clear (CLEAR) 03/12/18 02:00 Urine pH 6.0 (4.7-8.0) 03/12/18 02:00 Ur Specific [place] >= 1.030 (1.005-1.035) 03/12/18 02:00 Urine Protein Trace mg/dL (<30 mg/dL) H 03/12/18 02:00 Urine Glucose (UA) Negative mg/dL (NEGATIVE) 03/12/18 02:00 Urine Ketones Negative mg/dL (NEGATIVE) 03/12/18 02:00 Urine Blood Negative (NEGATIVE) 03/12/18 02:00 Urine Nitrate Negative (NEGATIVE) 03/12/18 02:00 Urine Bilirubin Negative (NEGATIVE) 03/12/18 02:00 Urine Urobilinogen 1.0 E.U./dL (<1 E.U./dL) H 03/12/18 02:00 Ur Leukocyte Esterase Negative Jihan/uL (NEGATIVE) 03/12/18 02:00 Urine RBC 0 - 2 /hpf (0-2) 03/12/18 02:00 Urine WBC 1 - 3 /hpf (0-6) 03/12/18 02:00 Ur Epithelial Cells 10 - 12 /hpf (0-5) H 03/12/18 02:00 Urine Bacteria Few /hpf (NONE) 03/12/18 02:00 Attending/Attestation - Attestation I have personally seen and examined this patient.: Yes I have fully participated in the care of the patient.: Yes I have reviewed all pertinent clinical information, including history, physical exam and plan: Yes Notes (Text): 03/14/18 16:48 52 year old female with past medical history of PUD, diverticulosis and choledocholithiasis s/p ERCP s/p sphincterotomy and s/p biliary stent placement who presented with persistent RUQ pain. CT abd/pelvis showed dilated cystic duct and common hepatic duct; 11 mm calcified wall stone noted at the junction of the cystic duct and common biliary duct likely resulting in mild / partial obstruction with mild diffuse enhancement and thickening of the extrahepatic biliary ducts; correlate clinically for cholangitis. MRCP showed choledocholit hiasis. She was seen by GI and is s/p ERCP with stone removal and stent placement. LFTs are improving. Patient will be discharged home to follow up with pmd and GI. Continue with po antibiotics and ursodiol. Rojelio Rico MD Hospitalist.
--- NOTE | 2018-03-14 18:28 | RAD ---
Date of service: 03/13/2018 PROCEDURE: Fluoroscopy up to 1 hr. HISTORY: ? CBD OBST. / BALLOON SWEEP / STENT INSERTION COMPARISON: None TECHNIQUE: Standard protocol for this study/examination. FINDINGS: Total fluoroscopic time (continuous mode) utilized during the procedure 1280.1 seconds. Total exam DLP: 165.94 (mGy). IMPRESSION: Less than 1 hr fluoroscopic assistance provided during performance of the procedure.
== END 2018-03-14 12:23 | disposition home or self-care (01) | DRG 446 ==
LOC: ED 23:24 → ERH 03-11 04:24 → 5RNO 03-11 06:22
PROVIDERS: ADMIT Internal Medicine; ATTEND Internal Medicine
PROC: 0FC98ZZ Extirpation of Matter from Common Bile Duct, Via Natural or Artificial Opening Endoscopic (ICD-10-PCS; principal; 2018-03-13 15:45)
PROC: 0F798DZ Dilation of Common Bile Duct with Intraluminal Device, Via Natural or Artificial Opening Endoscopic (ICD-10-PCS; 2018-03-13 15:45)
PROC: 0DJ08ZZ Inspection of Upper Intestinal Tract, Via Natural or Artificial Opening Endoscopic (ICD-10-PCS; 2018-03-13 15:45)
DX: K80.30 Calculus of bile duct with cholangitis, unspecified, without obstruction (principal); E87.6 Hypokalemia; K29.70 Gastritis, unspecified, without bleeding; J44.9 Chronic obstructive pulmonary disease, unspecified; R19.7 Diarrhea, unspecified; Z87.891 Personal history of nicotine dependence; Z87.11 Personal history of peptic ulcer disease; Z80.1 Family history of malignant neoplasm of trachea, bronchus and lung; Z83.3 Family history of diabetes mellitus

== ENCOUNTER 2018-04-02 11:20 | Observation (INO) | payer OTHER ==
[2018-04-02 11:20] VITALS: BMI 29.4
[2018-04-02] MEDS ORDERED: Sodium Chloride 0.9% 1,000 ML IV STA (11:30)
[2018-04-02] MEDS ORDERED: Morphine 4 mg/ml ISec IVP STA (11:30)
--- NOTE | 2018-04-02 11:33 | ED PDOC ---
Arrival/HPI - General Chief Complaint: GI Problem Time Seen by Provider: 04/02/18 11:25 Historian: Patient - History of Present Illness Narrative History of Present Illness (Text): 04/02/18 11:31 52 year old female, whose past medical history includes PUD, diverticulosis, choledocholithiasis (with sphincterotomy and biliary stent place on 02/01/18), cholecystectomy (02/06/18), gallstone pancreatitis (ERCP 02/17/18 and 03/13/18), and COPD, presents to the emergency department complaining of epigastric abdominal pain and back pain that began last night. Patient reports recent ERCP procedure done by Dr. Rosario. Patient reports nausea, but denies any fever, chills, chest pain, shortness of breath, vomiting, diarrhea, urinary symptoms, neck pain, headache, dizziness, or any other complaints. PMD: Dr. Priyank Vega GI: Dr. Rosario Symptom Onset: Gradual Symptom Course: Unchanged Activities at Onset: Light Context: Home Past Medical History - Provider Review Nursing Documentation Reviewed: Yes - Infectious Disease Hx of Infectious Diseases: None - Tetanus Immunization Tetanus Immunization: Unknown - Reproductive Currently : Unknown - Past Medical History Past Medical History: No Previous - Cardiac Hx Pacemaker: No - Pulmonary Hx Chronic Obstructive Pulmonary Disease (COPD): Yes - Neurological Hx Paralysis: No - HEENT Hx HEENT Disorder: No - Renal Hx Renal Disorder: No - Endocrine/Metabolic Hx Endocrine Disorders: No - Hematological/Oncological Hx Blood Transfusions: No - Integumentary Hx Dermatological Disorder: No - Musculoskeletal/Rheumatological Hx Musculoskeletal Disorders: No - Gastrointestinal Other/Comment: SBO, Gallbaldder stone. - Genitourinary/Gynecological Hx Genitourinary Disorders: No - Psychiatric Hx Substance Use: No - Past Surgical History Past Surgical History: No Previous - Surgical History Other/Comment: 02/01/18 sphincterotoimy, biliary stent placement, cholecystectomy 02/03/18, ercp gallstone/pancreatitis 02/17/18 - Anesthesia Hx Anesthesia Reactions: No Hx Malignant Hyperthermia: No - Suicidal Assessment Feels Threatened In Home Enviroment: No Family/Social History - Physician Review Nursing Documentation Reviewed: Yes Family/Social History: No Known Family HX Smoking Status: Heavy Smoker > 10 Cigarettes Daily Hx Alcohol Use: No Hx Substance Use: No Hx Substance Use Treatment: No Allergies/Home Meds Allergies/Adverse Reactions: Allergies No Known Allergies Allergy (Verified 04/02/18 11:25) Review of Systems - Physician Review All systems were reviewed & negative as marked: Yes - Review of Systems Constitutional: absent: Fevers, Other (chills) Respiratory: absent: SOB Cardiovascular: absent: Chest Pain Gastrointestinal: Abdominal Pain. absent: Diarrhea, Nausea, Vomiting Genitourinary Female: absent: Dysuria, Frequency, Hematuria Musculoskeletal: Back Pain. absent: Neck Pain Neurological: Headache, Dizziness Physical Exam Vital Signs Reviewed: Yes Temperature: Afebrile Blood Pressure: Hypertensive Pulse: Regular Respiratory Rate: Normal Appearance: Positive for: Well-Appearing, Non-Toxic, Comfortable Pain Distress: None Mental Status: Positive for: Alert and Oriented X 3 - Systems Exam Head: Present: Atraumatic, Normocephalic Pupils: Present: PERRL Extroacular Muscles: Present: EOMI Conjunctiva: Present: Normal Mouth: Present: Moist Mucous Membranes Neck: Present: Normal Range of Motion Respiratory/Chest: Present: Clear to Auscultation, Good Air Exchange. No: Respiratory Distress, Accessory Muscle Use Cardiovascular: Present: Regular Rate and Rhythm, Normal S1, S2. No: Murmurs Abdomen: Present: Tenderness (Epigastric tenderness and LUQ tenderness ), Guarding. No: Distention, Peritoneal Signs, Rebound Back: Present: Normal Inspection. No: Other (no tenderness) Upper Extremity: Present: Normal Inspection. No: Cyanosis, Edema Lower Extremity: Present: Normal Inspection. No: Edema Neurological: Present: GCS=15, CN II-XII Intact, Speech Normal Skin: Present: Warm, Dry, Normal Color. No: Rashes Psychiatric: Present: Alert, Oriented x 3, Normal Insight, Normal Concentration Medical Decision Making ED Course and Treatment: 04/02/18 11:31 Impression: 52 year old female presents complaining of epigastric abdominal pain and left upper quadrant pain that began last night. Patient had a recent ERCP procedure done. Differential Diagnosis included but are not limited to: Gallstones retained Plan: -- Labs -- Morphine, Nicoderm, Pepcid, IV Fluids, Zofran -- Reassess and disposition Prior Visits: Notes and results from previous visits were reviewed. Progress Notes: EKG shows NSR at 85 BPM. Interpreted by me. 04/02/18 12:[address] Rosario reports that he will come in to see the patient and to hold off on any CT scan at this time. 04/02/18 18:03 Creator : Flip Corona MD PROCEDURE: CT Abdomen and Pelvis . IMPRESSION: Cholecystectomy with in situ common bile duct stent with of persistent dilatation of the common bile duct. Previously described choledocholithiasis seen on recent MRCP of the abdomen not appreciated on this study. Please refer that exam for additional details. Mild central intrahepatic biliary ductal dilatation.. Small cyst left lobe liver unchanged. Mild fatty hepatic infiltration. Occasional colonic diverticula with no radiographic evidence of acute diverticulitis Case discussed with Dr. Rosario who came to evaluate patient and will do an ERCP on admission. Case discussed with Dr. Juan De Santiago who will place the patient on her service. CT reviewed with patient. Discussed the case with Dr. Gary, Cardiologist who will make Dr. Stringer aware of case. - Lab Interpretations I have reviewed the lab results: Yes - Scribe Statement The provider has reviewed the documentation as recorded by the Melecio Farmer Provider Scribe Attestation: All medical record entries made by the Jordanibomaira were at my direction and personally dictated by me. I have reviewed the chart and agree that the record accurately reflects my personal performance of the history, physical exam, medical decision making, and the department course for this patient. I have also personally directed, reviewed, and agree with the discharge instructions and disposition. Disposition/Present on Arrival - Present on Arrival Any Indicators Present on Arrival: No History of DVT/PE: No History of Uncontrolled Diabetes: No Urinary Catheter: No History of Decub. Ulcer: No History Surgical Site Infection Following: None - Disposition Have Diagnosis and Disposition been Completed?: Yes Diagnosis: Intractable abdominal pain Disposition: HOSPITALIZED Disposition Time: 18:08 Patient Plan: Admission, Observation Condition: FAIR Referrals: Rodney Vega MD [Primary Care Provider] - Follow up with primary Forms: [employer] (Mauritanian)
[2018-04-02 12:10] LABS: BASO # 0.02 {null, K/mm3} (0.0-2.0); BASO % 0.4 % (0.0-3.0); EOS # 0.1 (0.0-0.7); EOS % 1.3 % (1.5-5.0); HEMOGLOBIN 13.2 g/dL (12.0-16.0); LYMPH # 1.4 (1.2-3.4); LYMPH % 31.6 % (22.0-35.0); MEAN CELL VOLUME 91.7 fl (80.0-105.0); MEAN CORPUSCULAR HEMOGLOBIN 30.3 pg (25.0-35.0); MEAN PLATELET VOLUME 11.3 fl (7.0-11.0); MONO # 0.4 (0.1-0.6); MONO % 8.1 % (1.0-6.0); RBC 4.36 {null, 10^6/uL} (3.5-6.1); RED CELL DISTRIBUTION WIDTH 12.9 % (11.5-14.5); WHITE BLOOD COUNT 4.6 {null, 10^3/uL} (4.5-11.0)
[2018-04-02 12:18] LABS: INR 0.98; PARTIAL THROMBOPLASTIN TIME 31.5 Seconds (26.9-38.3); PROTHROMBIN TIME 11.1 SECONDS (9.4-12.5)
[2018-04-02 13:17] LABS: ALB/GLOB RATIO 1.3 (1.1-1.8); ALBUMIN 3.9 g/dL (3.0-4.8); ALT/SGPT 13 U/L (7-56); AST/SGOT 18 U/L (14-36); BLOOD UREA NITROGEN 5 mg/dL (7-21); CALCIUM 9.3 mg/dL (8.4-10.5); GFR NON-AFRICAN AMERICAN > 60; LIPASE 106 U/L (23-300)
--- NOTE | 2018-04-02 16:15 | CARD ---
APPROVED REPORT Date of service: 04/02/2018 EKG Measurement Heart [id number] <Conclusion> Normal sinus rhythm Normal ECG
--- NOTE | 2018-04-02 17:50 | CT ---
Date of service: 04/02/2018 PROCEDURE: CT Abdomen and Pelvis . HISTORY: Abdominal pain COMPARISON: Comparison made with prior CT scan abdomen pelvis 03/11/2018. comparison also made with prior MRCP dated 03/12/2018 TECHNIQUE: Contiguous axial images of the abdomen and pelvis performed following intravenous injection of approximately 98 cc Omnipaque 350 contrast material. Additional 2D sagittal and coronal reformats generated. Reformats generated. Radiation dose: Total exam DLP = 612.31 mGy-cm. This CT exam was performed using one or more of the following dose reduction techniques: Automated exposure control, adjustment of the mA and/or kV according to patient size, and/or use of iterative reconstruction technique. FINDINGS: LOWER THORAX: Heart size within range of normal. No significant pericardial effusion. Small to medium size hiatal hernia. Lung bases are free of focal consolidation. There appears to be some minimal scarring left lingular region. LIVER: The liver exhibits normal size measuring just over 13 cm in CC dimension. Mild diffuse fatty hepatic infiltration. Persistent mild central intrahepatic biliary ductal dilatation with apparent cyst left lobe liver unchanged. GALLBLADDER AND BILE DUCTS: Cholecystectomy with in situ common bile duct stent which however remains dilated.. Previously described choledocholithiasis seen on MRCP is not appreciated on this study. Please refer that exam and corresponding report for additional details. PANCREAS: Unremarkable. No mass. No ductal dilatation. SPLEEN: Unremarkable. No splenomegaly. ADRENALS: Slightly nodular appearing left adrenal gland. KIDNEYS AND URETERS: Unremarkable. No stone or hydronephrosis. BLADDER: Grossly unremarkable. REPRODUCTIVE: Apparent multiple nabothian cysts. Small left adnexal cyst measuring approximately 19 mm. Cervical canal measures approximately 8.3 mm. APPENDIX: Appendix unremarkable BOWEL: Evaluation of the bowel is slightly limited due to lack of oral contrast material. Stomach is incompletely distended with slight thick-walled appearance. Visualized loops of small bowel exhibit normal contour and caliber. No evidence of acute mechanical small bowel obstruction. Moderate amount of stool seen within the cecum at ascending and proximal transverse colon with lesser amount throughout the remaining colon. There does appear to be an occasional colonic diverticula however no radiographic evidence of acute diverticulitis. PERITONEUM: Unremarkable. No fluid collection. No free air. Small fat containing umbilical hernia. LYMPH NODES: Unremarkable. No enlarged lymph nodes. VASCULATURE: Unremarkable. No aortic aneurysm. No aortic atherosclerotic calcification or mural plaque present. BONES: No fracture or destructive lesion. OTHER FINDINGS: None. IMPRESSION: Cholecystectomy with in situ common bile duct stent with of persistent dilatation of the common bile duct. Previously described choledocholithiasis seen on recent MRCP of the abdomen not appreciated on this study. Please refer that exam for additional details. Mild central intrahepatic biliary ductal dilatation.. Small cyst left lobe liver unchanged. Mild fatty hepatic infiltration. Occasional colonic diverticula with no radiographic evidence of acute diverticulitis
[2018-04-02] MEDS ORDERED: Lactated Ringer's 1,000 ML IV SCH (18:30)
--- NOTE | 2018-04-02 19:09 | CP.PCM.HP ---
<Patricia Jean Baptiste - Last Filed: 04/02/18 20:09> History of Present Illness - History of Present Illness History of Present Illness: Patricia Jean Baptiste, PGY-1, Internal Medicine History and Physical for Dr. Hardwick 52 year old female with past medical history of PUD, diverticulosis, choledocholithiasis (with sphincterotomy and biliary stent place on 02/01/18), cholecystectomy (02/06/18), gallstone pancreatitis (ERCP 02/17/18), and COPD presents with constant left sided back pain radiating to the right upper quadrant and substernal chest pain starting last night with no exacerbating or relieving factors. Left sided back pain is spasm like and right upper quadrant pain is sharp and stabbing. Patient reports nausea with these symptoms as well. Patient was recently here in January where gallstone pancreatitis was diagnosed and biliary stent was placed followed with cholecystectomy 2 days later. In February, patient had recurrent choledocholithiasis with placement of biliary stent. Patient had suspicion of cholangitis at the time and was given zosyn during hospital stay and discharged with 3 days of levaquin. Patient was told to follow up 3 weeks after placement of stent which would be this upcoming Tuesday but due to new symptoms, patient presented to the ED this morning. Last endoscopy in 03/04 showed gastritis, stone in CBD, dilation in cystic duct, plastic stent in common bile duct. Patient reports these symptoms are similar to the symptoms she had before with cholecystitis and choledocholithiasis, however, in the past, pain started in the right side of the back and radiated to the right upper quadrant. This time, pain started on the left side of the back and radiated to the right upper quadrant. Patient denies headache, fever, shortness of breath, vomiting, constipation, diarrhea, dysuria, hematuria. 12-point ROS was unremarkable except for what was mentioned above. PMH: as mentioned above. PSHx: Cholecystectomy 02/06/18, sphincterotomy and biliary stent place on 02/01 Meds: Omperazole 40 BID, Ursodiol 500mg TID All: NKDA SHx: 1 ppd x 37 years, denies etoh or illicit drug use FMHx: Dad: DM, Mom: Lung cancer, Brother: DM PMD: Dr. Vega Pharm: [facility] Present on Admission - Present on Admission Any Indicators Present on Admission: No Review of Systems - Review of Systems Review of Systems: except as mentioned in HPI Past Patient History - Infectious Disease Hx of Infectious Diseases: None - Tetanus Immunizations Tetanus Immunization: Unknown - Past Social History Smoking Status: Heavy Smoker > 10 Cigarettes Daily - CARDIAC Hx Pacemaker: No - PULMONARY Hx Chronic Obstructive Pulmonary Disease (COPD): Yes - NEUROLOGICAL Hx Paralysis: No - HEENT Hx HEENT Problems: No - RENAL Hx Chronic Kidney Disease: No - ENDOCRINE/METABOLIC Hx Endocrine Disorders: No - HEMATOLOGICAL/ONCOLOGICAL Hx Blood Transfusions: No - INTEGUMENTARY Hx Dermatological Problems: No - MUSCULOSKELETAL/RHEUMATOLOGICAL Hx Musculoskeletal Disorders: No - GASTROINTESTINAL Other/Comment: SBO, Gallbaldder stone. - GENITOURINARY/GYNECOLOGICAL Hx Genitourinary Disorders: No - PSYCHIATRIC Hx Substance Use: No - SURGICAL HISTORY Other/Comment: 02/01/18 sphincterotoimy, biliary stent placement, cholecystectomy 02/03/18, ercp gallstone/pancreatitis 02/17/18 - ANESTHESIA Hx Anesthesia Reactions: No Hx Malignant Hyperthermia: No Meds Allergies/Adverse Reactions: Allergies Allergy/AdvReac Type Severity Reaction Status Date / Time No Known Allergies Allergy Verified 04/02/18 11:25 Physical Exam - Constitutional Appears: Well, Non-toxic, No Acute Distress - Head Exam Head Exam: ATRAUMATIC, NORMAL INSPECTION, NORMOCEPHALIC - Eye Exam Eye Exam: EOMI, PERRL - ENT Exam ENT Exam: Mucous Membranes Moist - Respiratory Exam Respiratory Exam: Wheezes (diffuse, mild), NORMAL BREATHING PATTERN - Cardiovascular Exam Cardiovascular Exam: REGULAR RHYTHM, RRR - GI/Abdominal Exam GI & Abdominal Exam: Diminished Bowel Sounds, Soft, Tenderness (right upper quadrant). absent: Guarding - Extremities Exam Extremities exam: Positive for: full ROM - Back Exam Back exam: FULL ROM, muscle spasm, NORMAL INSPECTION, paraspinal tenderness - Neurological Exam Neurological exam: Alert, CN II-XII Intact, Oriented x3 - Psychiatric Exam Psychiatric exam: Normal Affect, Normal Mood - Skin Skin Exam: Dry, Intact, Normal Color Results - Vital Signs Recent Vital Signs: Last Vital Signs Temp 97.8 F 04/02/18 11:35 Pulse 82 04/02/18 17:49 Resp 18 04/02/18 17:49 BP 136/98 H 04/02/18 17:49 Pulse Ox 98 04/02/18 17:49 - Labs Result Diagrams: 04/02/18 12:00 04/02/18 12:00 Labs: Laboratory Results - last 24 hr 04/02/18 04/02/18 04/02/18 12:00 12:00 12:00 WBC 4.6 RBC 4.36 Hgb 13.2 Hct 40.0 MCV 91.7 MCH 30.3 MCHC 33.0 RDW 12.9 Plt Count 201 MPV 11.3 H Neut % (Auto) 58.6 Lymph % (Auto) 31.6 [place] % (Auto) 8.1 H Eos % (Auto) 1.3 L Baso % (Auto) 0.4 Lymph # (Auto) 1.4 [place] # (Auto) 0.4 Eos # (Auto) 0.1 Baso # (Auto) 0.02 Absolute Neuts (auto) 2.66 PT 11.1 INR 0.98 APTT 31.5 Sodium 136 Potassium 3.8 Chloride 105 Carbon Dioxide 26 Anion Gap 9 L BUN 5 L Creatinine 0.6 L Est GFR ( Amer) > 60 Est GFR (Non-Af Amer) > 60 Random Glucose 99 Calcium 9.3 Magnesium 1.9 Total Bilirubin 0.5 AST 18 ALT 13 Alkaline Phosphatase 101 Total Protein 7.0 Albumin 3.9 Globulin 3.1 Albumin/Globulin Ratio 1.3 Lipase 106 Assessment & Plan - Assessment and Plan (Free Text) Assessment: 52 year old female with past medical history of PUD, diverticulosis, choledocholithiasis (with sphincterotomy and biliary stent place on 02/01/18), cholecystectomy (02/06/18), gallstone pancreatitis (ERCP 02/17/18), and COPD presents with constant left sided back pain radiating to the right upper quadrant and substernal chest pain starting last night with no exacerbating or relieving factors. Patient was admitted for abdominal and back pain 2/2 to irritation from stent in biliary duct. Plan: Abdominal Pain 2/2 to Stent in Biliary Duct -Abdominal CT: cholecystectomy with in situ CBD stent with persistent dilation of CBD. Previously described choledocholithiasis seen on MRCP of abdomen no appreciated. Mild central intrahepatic biliary ductal dilatation. Small cyst in left lobe of liver unchanged. Mild fatty hepatic infiltration occasional colonic diverticula with no diverticulosis. -Endoscopy from 03/04 showed gastritis, stone in common bile duct, dilation of cystic duct, plastic stent placed in CBD -Start dilaudid 0.5 mg Q8PRN for pain. Avoid morphine due to spasm of sphincter of oddi -Start protonix 40 mg BID -Start home ursodiol 500 mg TID -Dr. Rosario, GI, had recommended patient for return in 3 weeks for removal of stent. Patient was supposed to follow up this upcoming Tuesday -As per Dr. Rosario, patient for likely ERCP tomorrow for removal of biliary stent. No stones appreciated at this time on abdominal CT, so doubt choledocholithiasis or gallstone pancreatitis (lipase is 106, no signs of pancreatitis on abdominal CT). Patient is NPO for procedure tomorrow. -Dr. Mata, who knows the patient well, consulted for surgery for further recommendations. Atypical Chest Pain -Rule out ACS -No significant cardiac history -EKG: NSR with HR: 85 -Troponinx1: negative -Follow up troponin in the AM -Will hold aspirin until troponin levels return due to likely procedure and history of PUD Peptic ulcer disease -Started protonix 40 BID Hypertension -Likely secondary to pain -Started dilaudid 0.5 mg Q8PRN -Will follow up blood pressure in the morning COPD -Start duonebs 3 mL Q4 GI prophylaxis: protonix 40 mg daily DVT prophylaxis: SCD Patient plan discussed with attending. - Date & Time Date: 04/02/18 Time: 19:10 <Ray Hardwick - Last Filed: 04/02/18 23:40> Results - Vital Signs Recent Vital Signs: Last Vital Signs Temp 97.3 F L 04/02/18 22:00 Pulse 64 04/02/18 22:00 Resp 16 04/02/18 22:00 BP 138/94 H 04/02/18 22:00 Pulse Ox 97 04/02/18 22:00 - Labs Result Diagrams: 04/02/18 12:00 04/02/18 12:00 Labs: Laboratory Results - last 24 hr 04/02/18 04/02/18 04/02/18 12:00 12:00 12:00 WBC 4.6 RBC 4.36 Hgb 13.2 Hct 40.0 MCV 91.7 MCH 30.3 MCHC 33.0 RDW 12.9 Plt Count 201 MPV 11.3 H Neut % (Auto) 58.6 Lymph % (Auto) 31.6 [place] % (Auto) 8.1 H Eos % (Auto) 1.3 L Baso % (Auto) 0.4 Lymph # (Auto) 1.4 [place] # (Auto) 0.4 Eos # (Auto) 0.1 Baso # (Auto) 0.02 Absolute Neuts (auto) 2.66 PT 11.1 INR 0.98 APTT 31.5 Sodium 136 Potassium 3.8 Chloride 105 Carbon Dioxide 26 Anion Gap 9 L BUN 5 L Creatinine 0.6 L Est GFR ( Amer) > 60 Est GFR (Non-Af Amer) > 60 Random Glucose 99 Calcium 9.3 Magnesium 1.9 Total Bilirubin 0.5 AST 18 ALT 13 Alkaline Phosphatase 101 Troponin I Total Protein 7.0 Albumin 3.9 Globulin 3.1 Albumin/Globulin Ratio 1.3 Lipase 106 04/02/18 19:20 WBC RBC Hgb Hct MCV MCH MCHC RDW Plt Count MPV Neut % (Auto) Lymph % (Auto) [place] % (Auto) Eos % (Auto) Baso % (Auto) Lymph # (Auto) [place] # (Auto) Eos # (Auto) Baso # (Auto) Absolute Neuts (auto) PT INR APTT Sodium Potassium Chloride Carbon Dioxide Anion Gap BUN Creatinine Est GFR ( Amer) Est GFR (Non-Af Amer) Random Glucose Calcium Magnesium Total Bilirubin AST ALT Alkaline Phosphatase Troponin I < 0.01 Total Protein Albumin Globulin Albumin/Globulin Ratio Lipase Attending/Attestation - Attestation I have personally seen and examined this patient.: Yes I have fully participated in the care of the patient.: Yes I have reviewed all pertinent clinical information: Yes Notes (Text): 04/02/18 23:39 Patient was seen when she was in bed # 6 in the ER. Medical record was reviewed. Agree with history, physical examination, assessment and plan.
[2018-04-02] MEDS: HYDROmorphone 0.5 mg/0.5 ml ISec IVP PRN (19:49)
--- NOTE | 2018-04-02 20:32 | CP.PCM.CON ---
<Blaine Gary - Last Filed: 04/02/18 20:20> History of Present Illness - History of Present Illness History of Present Illness: General Surgery Consult Re: abdominal pain, cholecystectomy by Dr. Mata HPI: 52F presented to ED with L sided back pain radiating to RUQ and substernal chest pain starting last night with no exacerbating or relieving factors. RUQ pain is sharp and stabbing. + nausea, no emesis. Pt had ERCP in February and was told to follow up this coming Tuesday, but came to ED due to new symptoms. These symptoms are similar to the symptoms she had before with cholecystitis and choledocholithiasis, however, this time, pain started on the left side of the back and radiated to the RUQ. Denies headache, fever, chills, SOB, emesis, constipation, diarrhea, dysuria, hematuria, melena, hematochezia. Last endoscopy in 03/04 showed gastritis, stone in CBD, dilation in cystic duct, plastic stent in common bile duct. PMH: PUD, diverticulosis, choledocholithiasis (with sphincterotomy and biliary stent 02/01/18), gallstone pancreatitis, COPD PSH: Cholecystectomy 02/05/18, ERCP SH: 1 ppd x 37 years. Denies EtOH or drug use FH: noncontributory All: NKDA Meds: Omperazole 40 BID, Ursodiol 500mg TID Review of Systems - Review of Systems All systems: reviewed and no additional remarkable complaints except (as per HPI) Past Patient History - Infectious Disease Hx of Infectious Diseases: None - Tetanus Immunizations Tetanus Immunization: Unknown - Past Social History Smoking Status: Heavy Smoker > 10 Cigarettes Daily - CARDIAC Hx Pacemaker: No - PULMONARY Hx Chronic Obstructive Pulmonary Disease (COPD): Yes - NEUROLOGICAL Hx Paralysis: No - HEENT Hx HEENT Problems: No - RENAL Hx Chronic Kidney Disease: No - ENDOCRINE/METABOLIC Hx Endocrine Disorders: No - HEMATOLOGICAL/ONCOLOGICAL Hx Blood Transfusions: No - INTEGUMENTARY Hx Dermatological Problems: No - MUSCULOSKELETAL/RHEUMATOLOGICAL Hx Musculoskeletal Disorders: No - GASTROINTESTINAL Other/Comment: SBO, Gallbaldder stone. - GENITOURINARY/GYNECOLOGICAL Hx Genitourinary Disorders: No - PSYCHIATRIC Hx Substance Use: No - SURGICAL HISTORY Other/Comment: 02/01/18 sphincterotoimy, biliary stent placement, cholecystectomy 02/03/18, ercp gallstone/pancreatitis 02/17/18 - ANESTHESIA Hx Anesthesia Reactions: No Hx Malignant Hyperthermia: No Meds Allergies/Adverse Reactions: Allergies Allergy/AdvReac Type Severity Reaction Status Date / Time No Known Allergies Allergy Verified 04/02/18 11:25 - Medications Medications: Current Medications Albuterol/Ipratropium (Duoneb 3 Mg/0.5 Mg (3 Ml) Ud) 3 ml IH [id number] LIBAN Hydromorphone HCl (Dilaudid) 0.5 mg IVP Q8H PRN PRN Reason: Pain, moderate (4-7) Last Admin: 04/02/18 19:49 Dose: 0.5 mg Sodium Chloride (Sodium Chloride 0.9%) 1,000 mls @ 100 mls/hr IV .Q10H STA Stop: 04/02/18 21:29 Last Admin: 04/02/18 11:54 Dose: 100 mls/hr Ondansetron HCl (Zofran Inj) 4 mg IVP Q6H PRN PRN Reason: Nausea/Vomiting Pantoprazole Sodium (Protonix Inj) 40 mg IVP BID [facility] Physical Exam - Constitutional Appears: Non-toxic, No Acute Distress - Head Exam Head Exam: ATRAUMATIC, NORMOCEPHALIC - Eye Exam Eye Exam: EOMI. absent: Scleral icterus - ENT Exam ENT Exam: Mucous Membranes Dry Additional comments: trachea midline - Neck Exam Neck exam: Positive for: Full Rom. Negative for: Tenderness - Respiratory Exam Respiratory Exam: NORMAL BREATHING PATTERN. absent: Respiratory Distress - Cardiovascular Exam Cardiovascular Exam: RRR, +S1, +S2 - GI/Abdominal Exam GI & Abdominal Exam: Soft, Tenderness (mild in epigastrum). absent: Distended, Firm, Guarding, Rebound, Rigid Additional comments: lap erasmo scars well healed - Rectal Exam Rectal Exam: Deferred - Extremities Exam Extremities exam: Positive for: normal capillary refill. Negative for: calf tenderness, pedal edema - Back Exam Back exam: absent: CVA tenderness (L), CVA tenderness (R) - Neurological Exam Neurological exam: Alert, Oriented x3 - Psychiatric Exam Psychiatric exam: Normal Affect, Normal Mood - Skin Skin Exam: Dry, Warm Results - Vital Signs Recent Vital Signs: Last Vital Signs Temp 98.0 F 04/02/18 19:07 Pulse 66 04/02/18 20:02 Resp 18 04/02/18 20:02 BP 141/83 04/02/18 20:02 Pulse Ox 99 04/02/18 20:02 - Labs Result Diagrams: 04/02/18 12:00 04/02/18 12:00 Labs: Laboratory Results - last 24 hr 04/02/18 04/02/18 04/02/18 12:00 12:00 12:00 WBC 4.6 RBC 4.36 Hgb 13.2 Hct 40.0 MCV 91.7 MCH 30.3 MCHC 33.0 RDW 12.9 Plt Count 201 MPV 11.3 H Neut % (Auto) 58.6 Lymph % (Auto) 31.6 [place] % (Auto) 8.1 H Eos % (Auto) 1.3 L Baso % (Auto) 0.4 Lymph # (Auto) 1.4 [place] # (Auto) 0.4 Eos # (Auto) 0.1 Baso # (Auto) 0.02 Absolute Neuts (auto) 2.66 PT 11.1 INR 0.98 APTT 31.5 Sodium 136 Potassium 3.8 Chloride 105 Carbon Dioxide 26 Anion Gap 9 L BUN 5 L Creatinine 0.6 L Est GFR ( Amer) > 60 Est GFR (Non-Af Amer) > 60 Random Glucose 99 Calcium 9.3 Magnesium 1.9 Total Bilirubin 0.5 AST 18 ALT 13 Alkaline Phosphatase 101 Troponin I Total Protein 7.0 Albumin 3.9 Globulin 3.1 Albumin/Globulin Ratio 1.3 Lipase 106 04/02/18 19:20 WBC RBC Hgb Hct MCV MCH MCHC RDW Plt Count MPV Neut % (Auto) Lymph % (Auto) [place] % (Auto) Eos % (Auto) Baso % (Auto) Lymph # (Auto) [place] # (Auto) Eos # (Auto) Baso # (Auto) Absolute Neuts (auto) PT INR APTT Sodium Potassium Chloride Carbon Dioxide Anion Gap BUN Creatinine Est GFR ( Amer) Est GFR (Non-Af Amer) Random Glucose Calcium Magnesium Total Bilirubin AST ALT Alkaline Phosphatase Troponin I < 0.01 Total Protein Albumin Globulin Albumin/Globulin Ratio Lipase - Imaging and Cardiology CT scan - abdomen Status: Image reviewed by me, Report reviewed by me Assessment & Plan - Assessment and Plan (Free Text) Assessment: 52F with RUQ abdominal pain with history of retained CBD stone Plan: GI planning for ERCP tomorrow NPO Analgesia F/U ERCP results No immediate plan for surgical intervention D/W Dr. Esperanza Gary PGY4 <Kvng Mata - Last Filed: 04/09/18 21:27> Results - Vital Signs Recent Vital Signs: Last Vital Signs Temp 97.6 F 04/04/18 06:00 Pulse 94 H 04/04/18 06:00 Resp 20 04/04/18 06:00 BP 130/73 04/04/18 06:00 Pulse Ox 95 04/04/18 06:00 - Labs Result Diagrams: 04/04/18 06:30 04/04/18 06:30 Attending/Attestation - Attestation I have fully participated in the care of the patient.: Yes I have reviewed all pertinent clinical information: Yes Notes (Text): Pt with abdominal pain and s/p ERCP last month GI consult C.w current mx No acute general surgery intervention required Plan d.w pt in detail.
[2018-04-03] MEDS: Sodium Chloride 0.9% 1,000 ML IV SCH ×2 (01:32→11:07)
[2018-04-03] MEDS: Albuterol-Ipratrop 3 mg / 0.5 (3 ml) UD IH SCH ×6 (01:41→20:20)
[2018-04-03] MEDS ORDERED: Pantoprazole 40 mg EC Tab PO SCH (06:00)
[2018-04-03] MEDS: HYDROmorphone 0.5 mg/0.5 ml ISec IVP PRN (06:57)
[2018-04-03 07:09] LABS: BASO # 0.03 {null, K/mm3} (0.0-2.0); BASO % 0.4 % (0.0-3.0); EOS % 0.5 % (1.5-5.0); HEMOGLOBIN 13.1 g/dL (12.0-16.0); LYMPH # 1.7 (1.2-3.4); LYMPH % 22.7 % (22.0-35.0); MEAN CELL VOLUME 93.3 fl (80.0-105.0); MEAN CORPUSCULAR HGB CONC 32.2 g/dl (31.0-37.0); MEAN PLATELET VOLUME 11.4 fl (7.0-11.0); MONO # 0.5 (0.1-0.6); MONO % 7.2 % (1.0-6.0); RBC 4.36 {null, 10^6/uL} (3.5-6.1); RED CELL DISTRIBUTION WIDTH 13.1 % (11.5-14.5); WHITE BLOOD COUNT 7.4 {null, 10^3/uL} (4.5-11.0)
[2018-04-03 07:30] LABS: ALB/GLOB RATIO 1.2 (1.1-1.8); ALBUMIN 3.5 g/dL (3.0-4.8); ALT/SGPT 16 U/L (7-56); AST/SGOT 18 U/L (14-36); BLOOD UREA NITROGEN 4 mg/dL (7-21); CALCIUM 8.9 mg/dL (8.4-10.5); GFR NON-AFRICAN AMERICAN > 60
[2018-04-03] MEDS ORDERED: URSODIOL 250 MG PO SCH (10:00)
--- NOTE | 2018-04-03 10:05 | CP.PCM.PN ---
Subjective - Date & Time of Evaluation Date of Evaluation: 04/03/18 Time of Evaluation: 10:02 - Subjective Subjective: Surgery Progress Note for Dr. Mata S/E at bedside. Offers mild pain. Denies fevers, chills, chest pain, sob, n/v, constipation or diarrhea, and dysuria. Objective - Vital Signs/Intake and Output Vital Signs (last 24 hours): Temp Pulse Resp BP Pulse Ox 98.5 F 77 20 136/78 97 04/03/18 06:00 04/03/18 06:00 04/03/18 06:00 04/03/18 06:00 04/03/18 06:00 - Medications Medications: Current Medications Albuterol/Ipratropium (Duoneb 3 Mg/0.5 Mg (3 Ml) Ud) 3 ml IH [id number] [facility] Last Admin: 04/03/18 07:31 Dose: 3 ml Hydromorphone HCl (Dilaudid) 0.5 mg IVP Q8H PRN PRN Reason: Pain, moderate (4-7) Last Admin: 04/03/18 06:57 Dose: 0.5 mg Sodium Chloride (Sodium Chloride 0.9%) 1,000 mls @ 100 mls/hr IV .Q10H LIBAN Last Admin: 04/03/18 01:32 Dose: 100 mls/hr Ondansetron HCl (Zofran Inj) 4 mg IVP Q6H PRN PRN Reason: Nausea/Vomiting Last Admin: 04/03/18 06:57 Dose: 4 mg Pantoprazole Sodium (Protonix Inj) 40 mg IVP BID LIBAN - Labs Labs: 04/03/18 06:40 04/03/18 06:40 PT 11.1 SECONDS (9.4-12.5) 04/02/18 12:00 INR 0.98 04/02/18 12:00 APTT 31.5 Seconds (26.9-38.3) 04/02/18 12:00 - Constitutional Appears: Non-toxic, No Acute Distress - Head Exam Head Exam: NORMAL INSPECTION, NORMOCEPHALIC - Eye Exam Eye Exam: EOMI, Normal appearance. absent: Nystagmus, Scleral icterus - ENT Exam ENT Exam: Mucous Membranes Dry - Neck Exam Neck Exam: Full ROM - Respiratory Exam Respiratory Exam: Clear to Ausculation Bilateral, NORMAL BREATHING PATTERN. absent: Decreased Breath Sounds, Rhonchi, Wheezes - Cardiovascular Exam Cardiovascular Exam: REGULAR RHYTHM, +S1, +S2 - GI/Abdominal Exam GI & Abdominal Exam: Soft, Tenderness. absent: Distended, Firm, Guarding, Rigid - Extremities Exam Extremities Exam: Normal Inspection. absent: Calf Tenderness, Pedal Edema - Back Exam Back Exam: absent: CVA tenderness (L), CVA tenderness (R) - Neurological Exam Neurological Exam: Alert, Oriented x3 - Psychiatric Exam Psychiatric exam: Normal Affect, Normal Mood - Skin Skin Exam: Dry, Normal Color, Warm Assessment and Plan - Assessment and Plan (Free Text) Assessment: 52F with RUQ abdominal pain with history of retained CBD stone Plan: Pending ERCP with GI team; NPO possible pain related to stent placed previously Continue pain control Further medical management as per primary team Further recs as per Dr. Mata PGY-1 Jesse Cadena
[2018-04-03] MEDS ORDERED: Iohexol 240 (50 ml) ONE (14:14)
[2018-04-03] MEDS ORDERED: Indomethacin 50 MG Suppository PR ONE ×2 (14:14→17:27)
--- NOTE | 2018-04-03 15:20 | CP.PCM.PN ---
<Patricia Jean Baptiste - Last Filed: 04/03/18 15:16> Subjective - Date & Time of Evaluation Date of Evaluation: 04/03/18 Time of Evaluation: 15:17 - Subjective Subjective: Patricia Jean Baptiste, PGY-1, Internal Medicine Progress Note for Dr. Rico Patient was seen and evaluated at bedside. Patient reported vomiting overnight after receiving dilaudid. However, since that time, patient has had improved abdominal pain, no back pain, and has not been nauseous. Patient's last bowel movement was yesterday and normal. Patient reported no other symptoms including fever, chest pain, shortness of breath, vomiting, diarrhea, dysuria, hematuria. 12-point ROS was unremarkable except for what was mentioned above. Objective - Vital Signs/Intake and Output Vital Signs (last 24 hours): Temp Pulse Resp BP Pulse Ox 98.8 F 99 H 16 138/87 95 04/03/18 15:07 04/03/18 15:07 04/03/18 15:07 04/03/18 15:07 04/03/18 15:07 - Medications Medications: Current Medications Albuterol/Ipratropium (Duoneb 3 Mg/0.5 Mg (3 Ml) Ud) 3 ml IH [id number] [facility] Last Admin: 04/03/18 11:12 Dose: 3 ml Hydromorphone HCl (Dilaudid) 0.5 mg IVP Q8H PRN PRN Reason: Pain, moderate (4-7) Last Admin: 04/03/18 06:57 Dose: 0.5 mg Sodium Chloride (Sodium Chloride 0.9%) 1,000 mls @ 100 mls/hr IV .Q10H [facility] Last Admin: 04/03/18 11:07 Dose: 100 mls/hr Nicotine (Nicoderm Cq) 1 patch TD DAILY [facility] Last Admin: 04/03/18 13:19 Dose: 1 patch Ondansetron HCl (Zofran Inj) 4 mg IVP Q6H PRN PRN Reason: Nausea/Vomiting Last Admin: 04/03/18 06:57 Dose: 4 mg Pantoprazole Sodium (Protonix Inj) 40 mg IVP BID [facility] Last Admin: 04/03/18 11:06 Dose: 40 mg - Labs Labs: 04/03/18 06:40 04/03/18 06:40 PT 11.1 SECONDS (9.4-12.5) 04/02/18 12:00 INR 0.98 04/02/18 12:00 APTT 31.5 Seconds (26.9-38.3) 04/02/18 12:00 - Constitutional Appears: Well, Non-toxic, No Acute Distress - Head Exam Head Exam: ATRAUMATIC, NORMAL INSPECTION, NORMOCEPHALIC - Eye Exam Eye Exam: EOMI, PERRL - ENT Exam ENT Exam: Mucous Membranes Moist - Respiratory Exam Respiratory Exam: CTA B/L, NORMAL BREATHING PATTERN - Cardiovascular Exam Cardiovascular Exam: REGULAR RHYTHM, RRR - GI/Abdominal Exam GI & Abdominal Exam: Diminished Bowel Sounds, Soft, Tenderness (right upper quadrant). absent: Guarding - Extremities Exam Extremities exam: Positive for: full ROM - Back Exam Back exam: FULL ROM, NORMAL INSPECTION - Neurological Exam Neurological exam: Alert, CN II-XII Intact, Oriented x3 - Psychiatric Exam Psychiatric exam: Normal Affect, Normal Mood - Skin Skin Exam: Dry, Intact, Normal Color Assessment and Plan - Assessment and Plan (Free Text) Assessment: 52 year old female with past medical history of PUD, diverticulosis, choledocholithiasis (with sphincterotomy and biliary stent place on 02/01/18), cholecystectomy (02/06/18), gallstone pancreatitis (ERCP 02/17/18), and COPD presents with constant left sided back pain radiating to the right upper quadrant and substernal chest pain starting last night with no exacerbating or relieving factors. Patient was admitted for abdominal and back pain 2/2 to irritation from stent in biliary duct. Patient had ERCP on 04/03 for removal of biliary stent. Plan: Abdominal Pain 2/2 to Stent in Biliary Duct -Abdominal CT: cholecystectomy with in situ CBD stent with persistent dilation of CBD. Previously described choledocholithiasis seen on MRCP of abdomen no appreciated. Mild central intrahepatic biliary ductal dilatation. Small cyst in left lobe of liver unchanged. Mild fatty hepatic infiltration occasional colonic diverticula with no diverticulosis. -Endoscopy from 03/04 showed gastritis, stone in common bile duct, dilation of cystic duct, plastic stent placed in CBD -Continue dilaudid 0.5 mg Q8PRN for pain. Avoid morphine due to spasm of sphincter of oddi -Continue protonix 40 mg BID -Dr. Rosario, GI, had recommended patient for return in 3 weeks for removal of stent. Patient was supposed to follow up this upcoming Tuesday -Patient had ERCP today with Dr. Rosario for biliary stent removal. Will follow up with Dr. Rosario regarding ERCP findings and will follow up with patient regarding improvement of symptoms post procedure. -Dr. Mata, who knows the patient well, consulted for surgery for further recommendations. Atypical Chest Pain -Rule out ACS -No significant cardiac history -EKG: NSR with HR: 85 -Troponinx2: negative Peptic ulcer disease -Started protonix 40 BID Hypertension-resolved -Likely secondary to pain -Continue dilaudid 0.5 mg Q8PRN for pain. COPD -Continue duonebs 3 mL Q4 -Nicotine patch daily GI prophylaxis: protonix 40 mg daily DVT prophylaxis: SCD Patient plan discussed with attending. <Rojelio Rico - Last Filed: 04/03/18 16:10> Objective - Vital Signs/Intake and Output Vital Signs (last 24 hours): Temp Pulse Resp BP Pulse Ox 98.8 F 99 H 16 138/87 95 04/03/18 15:07 04/03/18 15:07 04/03/18 15:07 04/03/18 15:07 04/03/18 15:54 - Medications Medications: Current Medications Albuterol/Ipratropium (Duoneb 3 Mg/0.5 Mg (3 Ml) Ud) 3 ml IH [id number] [facility] Last Admin: 04/03/18 11:12 Dose: 3 ml Hydromorphone HCl (Dilaudid) 0.5 mg IVP Q8H PRN PRN Reason: Pain, moderate (4-7) Last Admin: 04/03/18 06:57 Dose: 0.5 mg Sodium Chloride (Sodium Chloride 0.9%) 1,000 mls @ 100 mls/hr IV .Q10H [facility] Last Admin: 04/03/18 11:07 Dose: 100 mls/hr Nicotine (Nicoderm Cq) 1 patch TD DAILY [facility] Last Admin: 04/03/18 13:19 Dose: 1 patch Ondansetron HCl (Zofran Inj) 4 mg IVP Q6H PRN PRN Reason: Nausea/Vomiting Last Admin: 04/03/18 06:57 Dose: 4 mg Pantoprazole Sodium (Protonix Inj) 40 mg IVP BID [facility] Last Admin: 04/03/18 11:06 Dose: 40 mg - Labs Labs: 04/03/18 06:40 04/03/18 06:40 PT 11.1 SECONDS (9.4-12.5) 04/02/18 12:00 INR 0.98 04/02/18 12:00 APTT 31.5 Seconds (26.9-38.3) 04/02/18 12:00 Attending/Attestation - Attestation I have personally seen and examined this patient.: Yes I have fully participated in the care of the patient.: Yes I have reviewed all pertinent clinical information, including history, physical exam and plan: Yes Notes (Text): 04/03/18 16:06 52 year old female with past medical history of PUD, choledocholithiasis s/p sphintererotomy and biliary stent placement (01/31), s/p cholecystectomy (01/31, and gallstone pancreatitis s/ ERCP (03/04) who presented with complaint of abdominal pain. CT abd/pelvis showed cholecystectomy with in situ CBD stent with persistent dilation of CBD, previously described choledocholithiasis seen on MRCP of abdomen not appreciated, mild central intrahepatic biliary ductal dilatation. GI and surgery are following. Patient is s/p ERCP this afternoon. Will follow up with GI recommendations post procedure. Rojelio Rico MD Hospitalist.
[2018-04-03] MEDS ORDERED: Propofol 10 mg/ml Inj (20 ML) ONE (15:29)
[2018-04-03] MEDS ORDERED: Midazolam 2 MG/2 ML VIAL ONE (15:29)
[2018-04-03] MEDS ORDERED: Rocuronium 10 mg/ml (5 ml) ONE (15:32)
[2018-04-03] MEDS ORDERED: Esmolol 100 mg/10ml Inj IV ONE (16:03)
[2018-04-03] MEDS ORDERED: Neostigmine Methylsulfate 3mg/3ml Syringe IV ONE (16:34)
[2018-04-03] MEDS ORDERED: HYDROmorphone 0.5 mg/0.5 ml ISec IVP PRN (17:05)
[2018-04-03] MEDS ORDERED: Sodium Chloride 0.9% 1,000 ML IV SCH (17:15)
[2018-04-04] MEDS: Albuterol-Ipratrop 3 mg / 0.5 (3 ml) UD IH SCH ×4 (00:30→11:11)
[2018-04-04] MEDS: Sodium Chloride 0.9% 1,000 ML IV SCH (02:07)
[2018-04-04 06:56] LABS: BASO # 0.02 {null, K/mm3} (0.0-2.0); BASO % 0.4 % (0.0-3.0); EOS % 0.8 % (1.5-5.0); HEMOGLOBIN 11.9 g/dL (12.0-16.0); LYMPH # 1.5 (1.2-3.4); LYMPH % 30.4 % (22.0-35.0); MEAN CELL VOLUME 93.1 fl (80.0-105.0); MEAN CORPUSCULAR HEMOGLOBIN 29.4 pg (25.0-35.0); MEAN CORPUSCULAR HGB CONC 31.6 g/dl (31.0-37.0); MONO # 0.5 (0.1-0.6); MONO % 9.3 % (1.0-6.0); RBC 4.05 {null, 10^6/uL} (3.5-6.1); RED CELL DISTRIBUTION WIDTH 13.1 % (11.5-14.5)
[2018-04-04 07:24] LABS: ALB/GLOB RATIO 1.3 (1.1-1.8); ALBUMIN 3.2 g/dL (3.0-4.8); ALT/SGPT 10 U/L (7-56); AST/SGOT 18 U/L (14-36); BLOOD UREA NITROGEN 2 mg/dL (7-21); CALCIUM 8.7 mg/dL (8.4-10.5); GFR NON-AFRICAN AMERICAN > 60
[2018-04-04 09:43] VITALS: BP 130/73; PULSE 94; RESP 20; TEMP 97.6; O2SAT 95
--- NOTE | 2018-04-04 10:16 | RAD ---
Date of service: 04/03/2018 PROCEDURE: ERCP HISTORY: ? STENT / ? CBD OBST / SPYGLASS COMPARISON: TECHNIQUE: 267.7 sec of fluoro time. Cumulative dose 61.74 mGy. Nine images submitted FINDINGS: The study shows opacification of the common duct and hepatic ducts. There is passage of a balloon catheter. IMPRESSION: As above
--- NOTE | 2018-04-04 13:10 | CP.PCM.PN ---
<Tonio De Santiago - Last Filed: 04/04/18 13:13> Subjective - Date & Time of Evaluation Date of Evaluation: 04/04/18 Time of Evaluation: 10:00 - Subjective Subjective: PGY 5 GI Follow-up note Pt seen and examined bedside Denies any abd pain tolerated diet denies any fever, chills or diaphoresis ROS: 12 point ROS conducted, neg other than above Objective - Vital Signs/Intake and Output Vital Signs (last 24 hours): Temp Pulse Resp BP Pulse Ox 97.6 F 94 H 20 130/73 95 04/04/18 06:00 04/04/18 06:00 04/04/18 06:00 04/04/18 06:00 04/04/18 06:00 Intake and Output: 04/04/18 04/04/18 06:59 18:59 Intake Total 620 Balance 620 - Labs Labs: 04/04/18 06:30 04/04/18 06:30 PT 11.1 SECONDS (9.4-12.5) 04/02/18 12:00 INR 0.98 04/02/18 12:00 APTT 31.5 Seconds (26.9-38.3) 04/02/18 12:00 - Constitutional Appears: Well, No Acute Distress - Head Exam Head Exam: ATRAUMATIC, NORMOCEPHALIC - Eye Exam Eye Exam: Normal appearance - ENT Exam ENT Exam: Mucous Membranes Moist, Normal Exam - Neck Exam Neck Exam: Normal Inspection - Respiratory Exam Respiratory Exam: Clear to Ausculation Bilateral, NORMAL BREATHING PATTERN. absent: Rales, Rhonchi, Wheezes, Respiratory Distress - Cardiovascular Exam Cardiovascular Exam: REGULAR RHYTHM, +S1, +S2 - GI/Abdominal Exam GI & Abdominal Exam: Soft, Normal Bowel Sounds. absent: Distended, Firm, Guarding, Rigid, Tenderness, Organomegaly, Rebound - Extremities Exam Extremities Exam: absent: Joint Swelling, Pedal Edema - Neurological Exam Neurological Exam: Alert, Awake, Oriented x3 - Psychiatric Exam Psychiatric exam: Normal Affect, Normal Mood - Skin Skin Exam: Dry, Intact, Normal Color, Warm Assessment and Plan - Assessment and Plan (Free Text) Assessment: 52F presented to ED with L sided back pain radiating to RUQ and substernal chest pain Retained Cystic Duct Stone, s/p Spyglass ERCP POD#1 Abd pain 2/2 above hx of Lab Bhavya CBD stent with persistent dilation of CBD Plan: -continue ursodiol TID -diet as tolerated -Follow-up with Dr. zelaya as an oupt -f/u Dr. Rosario as an outpt -okay to d/c from GI standpoint D/W Dr. Rosario <AbrahamAndrewdamián V - Last Filed: 04/04/18 22:45> Objective - Vital Signs/Intake and Output Vital Signs (last 24 hours): Temp Pulse Resp BP Pulse Ox 97.6 F 94 H 20 130/73 95 04/04/18 06:00 04/04/18 06:00 04/04/18 06:00 04/04/18 06:00 04/04/18 06:00 - Labs Labs: 04/04/18 06:30 04/04/18 06:30 PT 11.1 SECONDS (9.4-12.5) 04/02/18 12:00 INR 0.98 04/02/18 12:00 APTT 31.5 Seconds (26.9-38.3) 04/02/18 12:00 Attending/Attestation - Attestation I have personally seen and examined this patient.: Yes I have fully participated in the care of the patient.: Yes I have reviewed all pertinent clinical information, including history, physical exam and plan: Yes Notes (Text): This is an addendum to GI progress report dictated by the GI Fellow. The patient was seen and examined earlier. Medical records, lab studies, imagings were reviewed. Last 24 hours events reviewed. Agreed with the above treatment plan as outlined in GI Fellow 's notes with the addition of the following 04/04/18 22:44
--- NOTE | 2018-04-04 16:41 | CP.PCM.DIS ---
<AsiaelPatricia castano - Last Filed: 04/04/18 16:33> Provider - Provider Date of Admission: 04/02/18 18:01 Attending physician: Rojelio Rico MD Primary care physician: Rodney Vega MD Consults: 04/02/18 13:20 Consult [Physician Consult] Stat Comment: Consulting Provider: Kvng Mata Consulting Physician: Kvng Mata Reason for Consult: abdominal pain, h/o cholecyst by Dr. Mata 04/02/18 19:36 Gastroenterology Consult Stat Comment: Consulting Provider: Michelle Rosario V Consulting Physician: Michelle Rosario V Reason for Consult: abdominal pain status post biliary stent placement 3 weeks ago Time Spent in preparation of Discharge (in minutes): 60 Diagnosis - Discharge Diagnosis (1) Choledocholithiasis Status: Resolved Hospital Course - Lab Results Lab Results: Most Recent Lab Values WBC 5.0 10^3/uL (4.5-11.0) D 04/04/18 06:30 RBC 4.05 10^6/uL (3.5-6.1) 04/04/18 06:30 Hgb 11.9 g/dL (12.0-16.0) L 04/04/18 06:30 Hct 37.7 % (36.0-48.0) 04/04/18 06:30 MCV 93.1 fl (80.0-105.0) 04/04/18 06:30 MCH 29.4 pg (25.0-35.0) 04/04/18 06:30 MCHC 31.6 g/dl (31.0-37.0) 04/04/18 06:30 RDW 13.1 % (11.5-14.5) 04/04/18 06:30 Plt Count 167 10^3/uL (120.0-450.0) 04/04/18 06:30 MPV 11.0 fl (7.0-11.0) 04/04/18 06:30 Neut % (Auto) 59.1 % (50.0-68.0) 04/04/18 06:30 Lymph % (Auto) 30.4 % (22.0-35.0) 04/04/18 06:30 Morrison % (Auto) 9.3 % (1.0-6.0) H 04/04/18 06:30 Eos % (Auto) 0.8 % (1.5-5.0) L 04/04/18 06:30 Baso % (Auto) 0.4 % (0.0-3.0) 04/04/18 06:30 Lymph # (Auto) 1.5 (1.2-3.4) 04/04/18 06:30 Morrison # (Auto) 0.5 (0.1-0.6) 04/04/18 06:30 Eos # (Auto) 0.0 (0.0-0.7) 04/04/18 06:30 Baso # (Auto) 0.02 K/mm3 (0.0-2.0) 04/04/18 06:30 Absolute Neuts (auto) 2.94 (1.4-6.5) 04/04/18 06:30 PT 11.1 SECONDS (9.4-12.5) 04/02/18 12:00 INR 0.98 04/02/18 12:00 APTT 31.5 Seconds (26.9-38.3) 04/02/18 12:00 Sodium 138 mmol/L (132-148) 04/04/18 06:30 Potassium 3.8 mmol/L (3.6-5.0) 04/04/18 06:30 Chloride 107 mmol/L (98-107) 04/04/18 06:30 Carbon Dioxide 28 mmol/L (21-33) 04/04/18 06:30 Anion Gap 7 (10-20) L 04/04/18 06:30 BUN 2 mg/dL (7-21) L 04/04/18 06:30 Creatinine 0.5 mg/dl (0.7-1.2) L 04/04/18 06:30 Est GFR ( Amer) > 60 04/04/18 06:30 Est GFR (Non-Af Amer) > 60 04/04/18 06:30 Random Glucose 79 mg/dL (70-110) 04/04/18 06:30 Calcium 8.7 mg/dL (8.4-10.5) 04/04/18 06:30 Phosphorus 3.8 mg/dL (2.5-4.5) 04/03/18 06:40 Magnesium 1.7 mg/dL (1.7-2.2) 04/03/18 06:40 Total Bilirubin 0.5 mg/dL (0.2-1.3) 04/04/18 06:30 AST 18 U/L (14-36) 04/04/18 06:30 ALT 10 U/L (7-56) 04/04/18 06:30 Alkaline Phosphatase 89 U/L (38-126) 04/04/18 06:30 Troponin I < 0.01 ng/mL 04/03/18 06:40 Total Protein 5.7 g/dL (5.8-8.3) L 04/04/18 06:30 Albumin 3.2 g/dL (3.0-4.8) 04/04/18 06:30 Globulin 2.5 gm/dL 04/04/18 06:30 Albumin/Globulin Ratio 1.3 (1.1-1.8) 04/04/18 06:30 Lipase 106 U/L (23-300) 04/02/18 12:00 - Hospital Course Hospital Course: Patricia Jean Baptiste, PGY-1, Internal Medicine Discharge Summary for Dr. Rico 52 year old female with past medical history of PUD, diverticulosis, choledocholithiasis (with sphincterotomy and biliary stent place on 02/01/18), cholecystectomy (02/06/18), gallstone pancreatitis (ERCP 02/17/18), and COPD presented with constant left sided back pain radiating to the right upper quadrant and substernal chest pain for 1 day. Patient was told to follow up for stent removal this coming Tuesday but came to ED due to new symptoms. ACS was ruled out due to negative Troponinx2, negative EKG. CT scan on 04/02 exhibited cholecystectomy with in situ CBD stent, persistent dilation of CBD, mild intrahepatic biliary ductal dilatation, but previously described choledocholithiasis which was seen on MRCP of abdomen was not appreciated. Patient underwent ERCP with Dr. Rosario on 04/03 which included removal of biliary stent and cystic duct stone. Patient tolerated clear liquid diet and was progressed to solid diet. Patient eloped today prior to follow up by medicine team. This is a brief summary of the events that occurred during her hospital stay. For more detail, please refer to hospital documentation. - Date & Time of H&P Date of H&P: 04/02/18 Time of H&P: 18:52 Discharge Exam - Head Exam Head Exam: ATRAUMATIC, NORMOCEPHALIC - Eye Exam Eye Exam: EOMI, PERRL - Neck Exam Neck exam: Full Rom - Respiratory Exam Respiratory Exam: Clear to PA & Lateral, NORMAL BREATHING PATTERN - Cardiovascular Exam Cardiovascular Exam: REGULAR RHYTHM, RRR - GI/Abdominal Exam GI & Abdominal Exam: Normal Bowel Sounds, Soft. absent: Tenderness - Extremities Exam Extremities exam: full ROM - Neurological Exam Neurological exam: Alert, CN II-XII Intact, Oriented x3 - Skin Skin Exam: Dry, Intact, Normal Color Discharge Plan - Follow Up Plan Condition: FAIR Disposition: ELOPED FROM NURSING UNIT Instructions: Gallstones, Cholecystitis (DC), Cholecystitis (GEN) Additional Instructions: Please follow up with your PCP within 7-14 days. Please follow up with Dr. Rosario GI, within 5-7 days Please take all medications as prescribed. Please return to the emergency department if you have any new or concerning symptoms. Referrals: Rodney Vega MD [Primary Care Provider] - <Rojelio Rico - Last Filed: 04/04/18 19:07> Provider - Provider Date of Admission: 04/02/18 18:01 Attending physician: Rojelio Rico MD Primary care physician: Rodney Vega MD Consults: 04/02/18 13:20 Consult [Physician Consult] Stat Comment: Consulting Provider: Kvng Mata Consulting Physician: Kvng Mata Reason for Consult: abdominal pain, h/o cholecyst by Dr. Mata 04/02/18 19:36 Gastroenterology Consult Stat Comment: Consulting Provider: Michelle Rosario V Consulting Physician: Michelle Rosario V Reason for Consult: abdominal pain status post biliary stent placement 3 wee ks ago Hospital Course - Lab Results Lab Results: Most Recent Lab Values WBC 5.0 10^3/uL (4.5-11.0) D 04/04/18 06:30 RBC 4.05 10^6/uL (3.5-6.1) 04/04/18 06:30 Hgb 11.9 g/dL (12.0-16.0) L 04/04/18 06:30 Hct 37.7 % (36.0-48.0) 04/04/18 06:30 MCV 93.1 fl (80.0-105.0) 04/04/18 06:30 MCH 29.4 pg (25.0-35.0) 04/04/18 06:30 MCHC 31.6 g/dl (31.0-37.0) 04/04/18 06:30 RDW 13.1 % (11.5-14.5) 04/04/18 06:30 Plt Count 167 10^3/uL (120.0-450.0) 04/04/18 06:30 MPV 11.0 fl (7.0-11.0) 04/04/18 06:30 Neut % (Auto) 59.1 % (50.0-68.0) 04/04/18 06:30 Lymph % (Auto) 30.4 % (22.0-35.0) 04/04/18 06:30 Morrison % (Auto) 9.3 % (1.0-6.0) H 04/04/18 06:30 Eos % (Auto) 0.8 % (1.5-5.0) L 04/04/18 06:30 Baso % (Auto) 0.4 % (0.0-3.0) 04/04/18 06:30 Lymph # (Auto) 1.5 (1.2-3.4) 04/04/18 06:30 Morrison # (Auto) 0.5 (0.1-0.6) 04/04/18 06:30 Eos # (Auto) 0.0 (0.0-0.7) 04/04/18 06:30 Baso # (Auto) 0.02 K/mm3 (0.0-2.0) 04/04/18 06:30 Absolute Neuts (auto) 2.94 (1.4-6.5) 04/04/18 06:30 PT 11.1 SECONDS (9.4-12.5) 04/02/18 12:00 INR 0.98 04/02/18 12:00 APTT 31.5 Seconds (26.9-38.3) 04/02/18 12:00 Sodium 138 mmol/L (132-148) 04/04/18 06:30 Potassium 3.8 mmol/L (3.6-5.0) 04/04/18 06:30 Chloride 107 mmol/L (98-107) 04/04/18 06:30 Carbon Dioxide 28 mmol/L (21-33) 04/04/18 06:30 Anion Gap 7 (10-20) L 04/04/18 06:30 BUN 2 mg/dL (7-21) L 04/04/18 06:30 Creatinine 0.5 mg/dl (0.7-1.2) L 04/04/18 06:30 Est GFR ( Amer) > 60 04/04/18 06:30 Est GFR (Non-Af Amer) > 60 04/04/18 06:30 Random Glucose 79 mg/dL (70-110) 04/04/18 06:30 Calcium 8.7 mg/dL (8.4-10.5) 04/04/18 06:30 Phosphorus 3.8 mg/dL (2.5-4.5) 04/03/18 06:40 Magnesium 1.7 mg/dL (1.7-2.2) 04/03/18 06:40 Total Bilirubin 0.5 mg/dL (0.2-1.3) 04/04/18 06:30 AST 18 U/L (14-36) 04/04/18 06:30 ALT 10 U/L (7-56) 04/04/18 06:30 Alkaline Phosphatase 89 U/L (38-126) 04/04/18 06:30 Troponin I < 0.01 ng/mL 04/03/18 06:40 Total Protein 5.7 g/dL (5.8-8.3) L 04/04/18 06:30 Albumin 3.2 g/dL (3.0-4.8) 04/04/18 06:30 Globulin 2.5 gm/dL 04/04/18 06:30 Albumin/Globulin Ratio 1.3 (1.1-1.8) 04/04/18 06:30 Lipase 106 U/L (23-300) 04/02/18 12:00 Attending/Attestation - Attestation I have reviewed all pertinent clinical information, including history, physical exam and plan: Yes Notes (Text): 04/04/18 19:07 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
== END 2018-04-04 12:05 | disposition left against medical advice (07) ==
LOC: ED 11:20 → ERH 18:01 → 5RNO 21:08
PROVIDERS: ADMIT Hospitalist; ATTEND Internal Medicine
DX: K80.50 Calculus of bile duct without cholangitis or cholecystitis without obstruction (principal); J44.9 Chronic obstructive pulmonary disease, unspecified; K57.30 Diverticulosis of large intestine without perforation or abscess without bleeding; K29.70 Gastritis, unspecified, without bleeding; K76.89 Other specified diseases of liver; Z87.891 Personal history of nicotine dependence; Z87.11 Personal history of peptic ulcer disease
CPT/HCPCS: 36415; 43235; 43264; 43275; 74177; 74330; 80053; 81025; 83690; 83735; 84100; 84484; 85025; 85610; 85730; 93005; 94640; 94760; 96374; 96375; 96376; 99285; C1726; C9113; G0378; J1170; J2250; J2270; J2405; J2704; J2710; J2765; J3010; J7030; J7040